=== PATIENT | male | born 1990 | race Hispanic/Latino ===

== ENCOUNTER 2017-09-14 23:01 | Emergency (ER) | payer OTHER ==
[2017-09-15] LABS: RAPID GROUP A STREP NEGATIVE (NEGATIVE)
== END 2017-09-15 00:20 | disposition home or self-care (01) ==
LOC: EDH 23:01
DX: J10.1 Influenza due to other identified influenza virus with other respiratory manifestations (principal); R50.81 Fever presenting with conditions classified elsewhere
CPT/HCPCS: 87804; 87880

== ENCOUNTER 2018-12-12 12:20 | Emergency (ER) | payer SELFPAY ==
[2018-12-12 12:42] LABS: APPEARANCE,URINE Clear (CLEAR); BILIRUBIN,URINE Negative (NEGATIVE); COLOR,URINE Yellow (YELLOW); GLUCOSE, URINE (UA) Negative (NEGATIVE); KETONES,URINE Negative (NEGATIVE); LEUKOCYTE ESTERASE ,URINE Trace (NEGATIVE); NITRATE,URINE Negative (NEGATIVE); OCCULT BLOOD,URINE Negative (NEGATIVE); PH,URINE 8.5 (5.0-8.0); PROTEIN,URINE Negative (NEGATIVE); UROBILINOGEN,URINE 0.2 mg/dL (0.2-1.0)
[2018-12-12 12:53] LABS: BACTERIA,URINE Rare /HPF (None Seen); RBC,URINE 0-1 /HPF (0-1); SQUAMOUS EPITHELIAL CELL,UR Few /HPF (0-2); WBC,URINE 0-1 /HPF (0-1)
[2018-12-12] MEDS ORDERED: IBUPROFEN 600 MG TABLET ONE (13:04)
== END 2018-12-12 13:57 | disposition home or self-care (01) ==
LOC: EDH 12:20
DX: N30.00 Acute cystitis without hematuria (principal); N50.82 Scrotal pain; F41.9 Anxiety disorder, unspecified
CPT/HCPCS: 76870; 81001; 87088; 87486; 87797

== ENCOUNTER 2018-12-29 22:00 | Emergency (ER) | payer SELFPAY ==
[2018-12-29] MEDS ORDERED: ONDANSETRON ODT 4 MG TAB ONE (22:33)
[2018-12-29] MEDS ORDERED: HYOSCYAMINE SULFATE 0.125 MG TAB.SUBL SL ONE (22:33)
[2018-12-29 22:45] LABS: APPEARANCE,URINE CLEAR (CLEAR); BASOPHILS % (AUTO) 0.7 % (0.0-5.0); BILIRUBIN,URINE NEGATIVE (NEGATIVE); COLOR,URINE YELLOW (YELLOW); EOSINOPHILS % (AUTO) 2.9 % (0.0-8.0); GLUCOSE, URINE (UA) NEGATIVE (NEGATIVE); HEMATOCRIT 38.7 % (42-54); KETONES,URINE NEGATIVE (NEGATIVE); LEUKOCYTE ESTERASE ,URINE NEGATIVE (NEGATIVE); MEAN CORPUSCULAR HEMOGLOBIN 31.2 pg (27.0-33.0); MEAN CORPUSCULAR HGB CONC 35.8 g/dL (32.0-36.0); MEAN CORPUSCULAR VOLUME 87.1 fL (79-99); MONOCYTES % (AUTO) 7.6 % (3.0-13.0); NEUTROPHILS % (AUTO) 57.8 % (40.0-77.0); NITRATE,URINE NEGATIVE (NEGATIVE); NUCLEATED RED BLOOD CELLS 0.1 % (0.0-0.19); OCCULT BLOOD,URINE NEGATIVE (NEGATIVE); PLATELET COUNT (AUTO) 213 K/uL (130-400); PROTEIN,URINE TRACE mg/dL (NEGATIVE); RED BLOOD CELL COUNT(AUTO) 4.44 MIL/uL (4.50-6.20); UROBILINOGEN,URINE 0.2 mg/dL (0.2-1.0); WHITE BLOOD COUNT (AUTO) 7.9 K/uL (4.8-10.8)
[2018-12-29 22:54] LABS: POTASSIUM 4.2 mmol/L (3.5-5.1)
[2018-12-29 22:58] LABS: ALBUMIN 3.3 g/dL (3.5-5.0); BILIRUBIN,DIRECT 0.2 mg/dL (0.0-0.3); BILIRUBIN,TOTAL 0.8 mg/dL (0.2-1.0); TOTAL PROTEIN, SERUM 6.8 g/dL (6.0-8.3)
== END 2018-12-29 23:35 | disposition home or self-care (01) ==
LOC: EDH 22:00
DX: K52.9 Noninfective gastroenteritis and colitis, unspecified (principal); F41.9 Anxiety disorder, unspecified
CPT/HCPCS: 36415; 80048; 80076; 81003; 85025

== ENCOUNTER 2019-02-10 02:50 | Emergency (ER) | payer SELFPAY ==
[2019-02-10] MEDS ORDERED: ONDANSETRON HCL 4 MG/2 ML VIAL ONE (03:10)
[2019-02-10] MEDS ORDERED: MORPHINE SULFATE 4 MG/1ML SYG ONE ×2 (03:10→05:02)
[2019-02-10] MEDS ORDERED: SODIUM CHLORIDE 0.9% 1000ML 1,000 ML IV ONE (03:10)
[2019-02-10] MEDS ORDERED: IOHEXOL 350 MG/ML 100ML INFUS..BTL IV ONE (03:12)
[2019-02-10 03:20] LABS: BASOPHILS % (AUTO) 0.5 % (0.0-5.0); EOSINOPHILS % (AUTO) 1.8 % (0.0-8.0); HEMATOCRIT 45.6 % (42-54); LYMPHOCYTES % (AUTO) 43.6 % (21.0-51.0); MEAN CORPUSCULAR HEMOGLOBIN 32.2 pg (27.0-33.0); MEAN CORPUSCULAR HGB CONC 35.7 g/dL (32.0-36.0); MEAN CORPUSCULAR VOLUME 90.2 fL (79-99); MONOCYTES % (AUTO) 5.8 % (3.0-13.0); NEUTROPHILS % (AUTO) 48.3 % (40.0-77.0); NUCLEATED RED BLOOD CELLS 0.4 % (0.0-0.19); PLATELET COUNT (AUTO) 205 K/uL (130-400); RED BLOOD CELL COUNT(AUTO) 5.06 MIL/uL (4.50-6.20); RED CELL DISTRIBUTION WIDTH 14.3 % (11.0-15.5); WHITE BLOOD COUNT (AUTO) 8.5 K/uL (4.8-10.8)
[2019-02-10 03:33] LABS: POTASSIUM 3.7 mmol/L (3.5-5.1)
[2019-02-10 03:36] LABS: ALBUMIN 3.7 g/dL (3.5-5.0); BILIRUBIN,TOTAL 0.7 mg/dL (0.2-1.0); INR 1.02 (0.85-1.15); PARTIAL THROMBOPLASTIN TIME 27.7 SEC (26.3-35.5); PROTHROMBIN TIME 10.7 SEC (9.6-11.6); TOTAL PROTEIN, SERUM 7.3 g/dL (6.0-8.3)
== END 2019-02-10 05:37 | disposition home or self-care (01) ==
LOC: EDH 02:50
DX: R10.84 Generalized abdominal pain (principal); F10.10 Alcohol abuse, uncomplicated; F41.9 Anxiety disorder, unspecified; F12.10 Cannabis abuse, uncomplicated
CPT/HCPCS: 36415; 70450; 71260; 72125; 74177; 80053; 82550; 84484; 85025; 85610; 85730; 93005; 96374; 96375; 96376; 99285; J2270 ×2; J2405; J7030; Q9967

== ENCOUNTER 2019-04-01 15:45 | Emergency (ER) | payer SELFPAY | END 2019-04-01 17:32 | disposition home or self-care (01) | LOC: EDH 15:45 | DX: F45.8 Other somatoform disorders (principal); F41.9 Anxiety disorder, unspecified; F14.10 Cocaine abuse, uncomplicated; Z72.0 Tobacco use | CPT/HCPCS: 99281 ==

== ENCOUNTER 2021-07-07 18:49 | Emergency (ER) | payer OTHER ==
[~2021-07-07] VITALS: Ht 175.3 cm; Wt 83.9 kg
[2021-07-07] MEDS ORDERED: IBUPROFEN 400 MG TABLET PO ONE (20:00)
[2021-07-07] MEDS ORDERED: IBUP-2070 PO (21:27)
[2021-07-07] MEDS ORDERED: BROM237S PO (21:27)
[2021-07-07] MEDS ORDERED: AZIT250T9 PO (21:27)
[2021-07-07] MEDS ORDERED: PSEU120T62 PO (21:27)
[2021-07-07] MEDS ORDERED: ALBU8.5H8 IH (21:27)
[2021-07-07 21:54] VITALS: BP 132/86
== END 2021-07-07 21:55 | disposition home or self-care (01) ==
LOC: EDH 18:49
DX: U07.1 COVID-19 (principal); E11.9 Type 2 diabetes mellitus without complications; J45.909 Unspecified asthma, uncomplicated; Z79.1 Long term (current) use of non-steroidal anti-inflammatories (NSAID); Z79.899 Other long term (current) drug therapy
CPT/HCPCS: 87635; 87804 ×2; 87880; 99283; C9803

== ENCOUNTER 2021-11-03 01:05 | Emergency (ER) | payer OTHER, SELFPAY ==
[~2021-11-03] VITALS: Ht 175.3 cm; Wt 86.2 kg
[~2021-11-03 01:05] MED LIST: ALBU8.5H8 IH; AZIT250T9 PO; BROM237S PO; IBUP-2070 PO; PSEU120T62 PO
[2021-11-03 01:55] LABS: BASOPHILS % (AUTO) 0.2 % (0.0-5.0); EOSINOPHILS % (AUTO) 0.9 % (0.0-8.0); HEMATOCRIT 46.8 % (42-54); LYMPHOCYTES % (AUTO) 9.2 % (21.0-51.0); MEAN CORPUSCULAR HGB CONC 36.1 g/dL (32.0-36.0); MEAN CORPUSCULAR VOLUME 91.4 fL (79-99); MONOCYTES % (AUTO) 6.8 % (3.0-13.0); NEUTROPHILS % (AUTO) 82.7 % (40.0-77.0); PLATELET COUNT (AUTO) 126 K/uL (130-400); RED BLOOD CELL COUNT(AUTO) 5.12 MIL/uL (4.50-6.20); RED CELL DISTRIBUTION WIDTH 12.6 % (11.0-15.5); WHITE BLOOD COUNT (AUTO) 8.7 K/uL (4.8-10.8)
[2021-11-03 02:02] LABS: APPEARANCE,URINE Clear (CLEAR); BILIRUBIN,URINE Small (NEGATIVE); COLOR,URINE Dark Yellow (YELLOW); GLUCOSE, URINE (UA) Negative (NEGATIVE); KETONES,URINE Negative (NEGATIVE); LEUKOCYTE ESTERASE ,URINE Moderate (NEGATIVE); NITRATE,URINE Negative (NEGATIVE); OCCULT BLOOD,URINE Negative (NEGATIVE); PROTEIN,URINE Negative (NEGATIVE)
[2021-11-03 02:03] LABS: CARBON DIOXIDE 26 mmol/L (21-32); CHLORIDE 102 mmol/L (101-111); GLOMERULAR FILTR. RATE CALC 91 mL/min (>60); GLUCOSE,RANDOM 136 mg/dL (70-105); POTASSIUM 3.8 mmol/L (3.5-5.1); SODIUM SERUM 140 mmol/L (136-145); UREA NITROGEN, BLOOD 1 mg/dL (7-18)
[2021-11-03 02:09] LABS: ALANINE AMINOTRANSFERASE 166 U/L (12-78); ALBUMIN 3.3 g/dL (3.5-5.0); ALCOHOL, BLOOD < 3 mg/dL (0-10); ASPARTATE AMINOTRANSFERASE 231 U/L (10-37); BILIRUBIN,TOTAL 3.4 mg/dL (0.2-1.0); LIPASE 52 U/L (114-286); TOTAL PROTEIN, SERUM 7.4 g/dL (6.0-8.3)
[2021-11-03 02:10] LABS: AMPHET/METH SCREEN,URINE NEGATIVE (NEGATIVE); BARBITURATE SCREEN, URINE NEGATIVE (NEGATIVE); BENZODIAZEPINES SCREEN,URINE NEGATIVE (NEGATIVE); CANNABINOID SCREEN,URINE NEGATIVE (NEGATIVE); COCAINE SCREEN,URINE NEGATIVE (NEGATIVE); OPIATE SCREEN,URINE NEGATIVE (NEGATIVE); PHENCYCLIDINE SCREEN,URINE NEGATIVE (NEGATIVE)
[2021-11-03 02:11] LABS: BACTERIA,URINE None Seen /HPF (None Seen); RBC,URINE None Seen /HPF (0-1); SQUAMOUS EPITHELIAL CELL,UR Few /HPF (0-2)
[2021-11-03] MEDS ORDERED: LORAZEPAM 2 MG/ML 1 ML VIAL IVP ONE (02:30)
[2021-11-03] MEDS ORDERED: MAG/ALUM/SIMETH 30 ML UDCUP PO ONE (02:30)
[2021-11-03] MEDS ORDERED: DICYCLOMINE HCL 10 MG/5 ML ML PO ONE (02:30)
[2021-11-03] MEDS ORDERED: PHARMACY COMMUNICATION MISC SCH (02:30)
[2021-11-03] MEDS ORDERED: LIDOCAINE HCL 2% VISCOUS 15 ML UDCUP PO ONE (02:30)
[2021-11-03] MEDS ORDERED: PANTOPRAZOLE 40 MG/VIAL IVP ONE (02:30)
[2021-11-03] MEDS ORDERED: M.V.I. IV [ADULT] 10 ML VIAL IV ONE (02:46)
[2021-11-03] MEDS ORDERED: THIAMINE HCL 100 MG/ML 2ML VIAL ONE (02:46)
[2021-11-03] MEDS ORDERED: M.V.I. IV [ADULT] 10 ML, FOLIC ACID 1 MG, THIAMINE HCL 100 MG in 0.9%NACL 1000ML 1,000 ML IV SCH (03:00)
[2021-11-03] MEDS ORDERED: LISI10TA24 PO (04:02)
[2021-11-03] MEDS ORDERED: LIB25 PO (04:02)
[2021-11-03 04:10] VITALS: BP 146/71
== END 2021-11-03 04:34 | disposition home or self-care (01) ==
LOC: EDH 01:05
DX: K70.10 Alcoholic hepatitis without ascites (principal); F10.239 Alcohol dependence with withdrawal, unspecified; I10 Essential (primary) hypertension; Z79.1 Long term (current) use of non-steroidal anti-inflammatories (NSAID); Z79.899 Other long term (current) drug therapy
CPT/HCPCS: 36415; 80053; 80305; 81001; 83690; 85025; 87088; 93005; 96365; 96375; 99284; C9113; J2060; J3411 ×2; J3490; J7030

== ENCOUNTER 2021-11-25 14:59 | Emergency (ER) | payer OTHER ==
[~2021-11-25] VITALS: Ht 175.3 cm; Wt 90.7 kg
[~2021-11-25 14:59] MED LIST changes: +LIB25 PO; +LISI10TA24 PO
[2021-11-25 15:28] LABS: BASOPHILS % (AUTO) 0.7 % (0.0-5.0); EOSINOPHILS % (AUTO) 1.9 % (0.0-8.0); HEMATOCRIT 45.4 % (42-54); MEAN CORPUSCULAR HEMOGLOBIN 33.3 pg (27.0-33.0); MEAN CORPUSCULAR HGB CONC 36.6 g/dL (32.0-36.0); MEAN CORPUSCULAR VOLUME 91.2 fL (79-99); MONOCYTES % (AUTO) 6.3 % (3.0-13.0); PLATELET COUNT (AUTO) 177 K/uL (130-400); RED BLOOD CELL COUNT(AUTO) 4.98 MIL/uL (4.50-6.20); RED CELL DISTRIBUTION WIDTH 11.9 % (11.0-15.5); WHITE BLOOD COUNT (AUTO) 7.3 K/uL (4.8-10.8)
[2021-11-25] MEDS ORDERED: HYDROXYZINE 50MG VIAL 50 MG/ML VIAL IM SCH (15:30)
[2021-11-25 15:40] LABS: CREATININE 0.8 mg/dL (0.5-1.5); POTASSIUM 3.6 mmol/L (3.5-5.1)
[2021-11-25 15:45] LABS: ALBUMIN 3.3 g/dL (3.5-5.0); TOTAL PROTEIN, SERUM 7.6 g/dL (6.0-8.3)
[2021-11-25 16:23] VITALS: BP 131/95
== END 2021-11-25 16:27 | disposition home or self-care (01) ==
LOC: EDH 14:59
DX: M79.661 Pain in right lower leg (principal); I10 Essential (primary) hypertension; F41.9 Anxiety disorder, unspecified; F32.A Depression, unspecified; I48.91 Unspecified atrial fibrillation; Z79.899 Other long term (current) drug therapy
CPT/HCPCS: 36415; 80053; 84484; 85025; 93005; 93971; 96372; 99285; J3410

== ENCOUNTER 2021-12-20 23:52 | Emergency (ER) | payer OTHER ==
[~2021-12-20] VITALS: Ht 175.3 cm; Wt 85.7 kg
[2021-12-20 23:58] VITALS: BP 152/92
[2021-12-21] MEDS ORDERED: KETOROLAC 30MG VIAL (30MG/ML) IM STA (01:38)
[2021-12-21] MEDS ORDERED: IBUP-2077 PO (02:50)
[2021-12-21] MEDS ORDERED: CYCL10TA16 PO (02:50)
== END 2021-12-21 03:00 | disposition home or self-care (01) ==
LOC: EDH 23:52
DX: S29.011A Strain of muscle and tendon of front wall of thorax, initial encounter (principal); I10 Essential (primary) hypertension; I48.91 Unspecified atrial fibrillation; Z79.1 Long term (current) use of non-steroidal anti-inflammatories (NSAID); Z79.899 Other long term (current) drug therapy; X58.XXXA Exposure to other specified factors, initial encounter; Y93.89 Activity, other specified; Y92.89 Other specified places as the place of occurrence of the external cause; Y99.8 Other external cause status
CPT/HCPCS: 96372; 99283; J1885

== ENCOUNTER 2022-01-30 11:11 | Emergency (ER) | payer OTHER ==
[~2022-01-30] VITALS: Ht 175.3 cm; Wt 86.2 kg
[~2022-01-30 11:11] MED LIST changes: +CYCL10TA16 PO; +IBUP-2077 PO
[2022-01-30 11:36] LABS: BASOPHILS % (AUTO) 0.4 % (0.0-5.0); EOSINOPHILS % (AUTO) 2.7 % (0.0-8.0); HEMATOCRIT 40.1 % (42-54); LYMPHOCYTES % (AUTO) 40.3 % (21.0-51.0); MEAN CORPUSCULAR HEMOGLOBIN 33.9 pg (27.0-33.0); MEAN CORPUSCULAR HGB CONC 36.2 g/dL (32.0-36.0); MEAN CORPUSCULAR VOLUME 93.7 fL (79-99); MONOCYTES % (AUTO) 10.3 % (3.0-13.0); NEUTROPHILS % (AUTO) 45.9 % (40.0-77.0); PLATELET COUNT (AUTO) 137 K/uL (130-400); RED BLOOD CELL COUNT(AUTO) 4.28 MIL/uL (4.50-6.20); RED CELL DISTRIBUTION WIDTH 12.2 % (11.0-15.5); WHITE BLOOD COUNT (AUTO) 4.8 K/uL (4.8-10.8)
[2022-01-30 11:49] LABS: CREATININE 0.9 mg/dL (0.5-1.5); POTASSIUM 4.2 mmol/L (3.5-5.1)
[2022-01-30 11:53] LABS: ALBUMIN 3.2 g/dL (3.5-5.0); TOTAL PROTEIN, SERUM 7.2 g/dL (6.0-8.3)
[2022-01-30] MEDS ORDERED: NIFEDIPINE 10 MG CAP PO ONE (12:30)
[2022-01-30] MEDS ORDERED: GUAIFENESIN-DM 200/20 MG 10 ML PO ONE (12:30)
[2022-01-30 12:51] VITALS: BP 141/92
[2022-01-30] MEDS ORDERED: DIPH1POW20 PO (13:09)
[2022-01-31 02:39] LABS: HEPATITIS B SURFACE ANTIGEN Non-Reactive (Nonreactive)
[2022-01-31 04:06] LABS: HEPATITIS A IGM ANTIBODY Non-Reactive (Nonreactive); HEPATITIS B CORE IGM ANTIBODY Non-Reactive (Negative); HEPATITIS C ANTIBODY Non-Reactive (Nonreactive)
== END 2022-01-30 13:33 | disposition home or self-care (01) ==
LOC: EDH 11:11
DX: U07.1 COVID-19 (principal); I10 Essential (primary) hypertension; R74.8 Abnormal levels of other serum enzymes; I48.91 Unspecified atrial fibrillation; Z79.1 Long term (current) use of non-steroidal anti-inflammatories (NSAID); Z79.899 Other long term (current) drug therapy
CPT/HCPCS: 99285; 71045; 87635; 84484; 80053; 85025; 87880; 87804 ×2; 80074; 36415; 93005; C9803

== ENCOUNTER 2022-02-23 06:53 | Emergency (ER) | payer OTHER ==
[~2022-02-23] VITALS: Ht 175.3 cm; Wt 81.6 kg
[~2022-02-23 06:53] MED LIST changes: +DIPH1POW20 PO
[2022-02-23 07:14] LABS: EOSINOPHILS % (AUTO) 2.7 % (0.0-8.0); HEMATOCRIT 40.7 % (42-54); LYMPHOCYTES % (AUTO) 25.4 % (21.0-51.0); MEAN CORPUSCULAR HEMOGLOBIN 34.9 pg (27.0-33.0); MEAN CORPUSCULAR HGB CONC 36.4 g/dL (32.0-36.0); MONOCYTES % (AUTO) 11.5 % (3.0-13.0); NEUTROPHILS % (AUTO) 59.2 % (40.0-77.0); PLATELET COUNT (AUTO) 169 K/uL (130-400); RED BLOOD CELL COUNT(AUTO) 4.24 MIL/uL (4.50-6.20); RED CELL DISTRIBUTION WIDTH 12.6 % (11.0-15.5); WHITE BLOOD COUNT (AUTO) 4.1 K/uL (4.8-10.8)
[2022-02-23 07:29] LABS: ALBUMIN 3.6 g/dL (3.5-5.0); CREATININE 0.9 mg/dL (0.5-1.5); POTASSIUM 3.9 mmol/L (3.5-5.1); TOTAL PROTEIN, SERUM 7.4 g/dL (6.0-8.3)
[2022-02-23] MEDS ORDERED: HYDROXYZINE 100MG/2ML VIAL IM SCH (08:00)
[2022-02-23 08:11] LABS: APPEARANCE,URINE CLEAR (CLEAR); BILIRUBIN,URINE NEGATIVE (NEGATIVE); COLOR,URINE YELLOW (YELLOW); GLUCOSE, URINE (UA) NEGATIVE (NEGATIVE); KETONES,URINE NEGATIVE (NEGATIVE); LEUKOCYTE ESTERASE ,URINE TRACE (NEGATIVE); OCCULT BLOOD,URINE TRACE-LYSED (NEGATIVE); PROTEIN,URINE TRACE mg/dL (NEGATIVE); UROBILINOGEN,URINE 0.2 mg/dL (0.2-1.0)
[2022-02-23 08:20] LABS: AMPHET/METH SCREEN,URINE NEGATIVE (NEGATIVE); BENZODIAZEPINES SCREEN,URINE NEGATIVE (NEGATIVE); CANNABINOID SCREEN,URINE NEGATIVE (NEGATIVE); COCAINE SCREEN,URINE NEGATIVE (NEGATIVE); PHENCYCLIDINE SCREEN,URINE NEGATIVE (NEGATIVE)
[2022-02-23 08:29] LABS: NITRATE,URINE NEGATIVE (NEGATIVE)
[2022-02-23] MEDS ORDERED: HYDROXYZINE 50MG VIAL 50 MG/ML VIAL IM SCH (08:30)
[2022-02-23] MEDS ORDERED: BUSP15 PO (08:58)
[2022-02-23 09:09] LABS: BACTERIA,URINE Few /HPF (None Seen); RBC,URINE 0-1 /HPF (0-1)
[2022-02-23 09:10] LABS: SQUAMOUS EPITHELIAL CELL,UR 0-2 /HPF (0-2)
[2022-02-23 09:21] VITALS: BP 148/85
[2022-02-25 15:14] LABS: OPIATES SCREEN URINE Negative ng/mL (Cutoff=300)
== END 2022-02-23 09:22 | disposition home or self-care (01) ==
LOC: EDH 06:53
DX: F41.9 Anxiety disorder, unspecified (principal); K70.10 Alcoholic hepatitis without ascites; Z20.822 Contact with and (suspected) exposure to COVID-19; R74.8 Abnormal levels of other serum enzymes; I10 Essential (primary) hypertension; I48.91 Unspecified atrial fibrillation; Z79.1 Long term (current) use of non-steroidal anti-inflammatories (NSAID); Z79.899 Other long term (current) drug therapy
CPT/HCPCS: 99285; 76705; 71045; 87635; 80053; 80305; 83690; 85025; 87088; 36415; 96372; 93005; 81001; C9803; J3410

== ENCOUNTER 2022-07-30 08:06 | Emergency (ER) | payer OTHER ==
[~2022-07-30] VITALS: Ht 175.3 cm; Wt 81.6 kg
[~2022-07-30 08:06] MED LIST changes: +BUSP15 PO
[2022-07-30] MEDS ORDERED: ACETAMINOPHEN 500 MG TABLET PO ONE (09:00)
[2022-07-30] MEDS ORDERED: IBUP-2071 PO (10:58)
[2022-07-30] MEDS ORDERED: BENZ-39 PO (10:58)
[2022-07-30 11:08] VITALS: BP 137/98
== END 2022-07-30 11:08 | disposition home or self-care (01) ==
LOC: EDH 08:06
DX: B34.9 Viral infection, unspecified (principal); I10 Essential (primary) hypertension; I48.91 Unspecified atrial fibrillation; Z79.1 Long term (current) use of non-steroidal anti-inflammatories (NSAID); Z79.899 Other long term (current) drug therapy; Z20.822 Contact with and (suspected) exposure to COVID-19
CPT/HCPCS: 99284; 71045; 87635; 87880; C9803

== ENCOUNTER 2022-08-19 12:52 | Emergency (ER) | payer OTHER ==
[~2022-08-19] VITALS: Ht 175.3 cm; Wt 85.7 kg
[~2022-08-19 12:52] MED LIST changes: +BENZ-39 PO; +IBUP-2071 PO
[2022-08-19 16:19] VITALS: BP 128/68
== END 2022-08-19 16:23 | disposition home or self-care (01) ==
LOC: EDH 12:52
DX: R06.02 Shortness of breath (principal); I10 Essential (primary) hypertension; I48.91 Unspecified atrial fibrillation; Z79.1 Long term (current) use of non-steroidal anti-inflammatories (NSAID); Z79.2 Long term (current) use of antibiotics; Z79.899 Other long term (current) drug therapy; Z20.822 Contact with and (suspected) exposure to COVID-19
CPT/HCPCS: 99283; 87635; 87804 ×2; C9803

== ENCOUNTER 2022-09-15 12:07 | Emergency (ER) | payer OTHER ==
[~2022-09-15] VITALS: Ht 175.3 cm; Wt 81.6 kg
[2022-09-15 12:19] VITALS: BP 156/94
[2022-09-15 13:07] LABS: AMPHET/METH SCREEN,URINE NEGATIVE (NEGATIVE); BARBITURATE SCREEN, URINE NEGATIVE (NEGATIVE); BENZODIAZEPINES SCREEN,URINE NEGATIVE (NEGATIVE); CANNABINOID SCREEN,URINE NEGATIVE (NEGATIVE); COCAINE SCREEN,URINE NEGATIVE (NEGATIVE); OPIATE SCREEN,URINE NEGATIVE (NEGATIVE); PHENCYCLIDINE SCREEN,URINE NEGATIVE (NEGATIVE)
[2022-09-15 13:09] LABS: BASOPHILS % (AUTO) 0.8 % (0.0-5.0); EOSINOPHILS % (AUTO) 1.2 % (0.0-8.0); HEMATOCRIT 44.8 % (42-54); LYMPHOCYTES % (AUTO) 17.8 % (21.0-51.0); MEAN CORPUSCULAR HEMOGLOBIN 34.4 pg (27.0-33.0); MEAN CORPUSCULAR HGB CONC 36.8 g/dL (32.0-36.0); MEAN CORPUSCULAR VOLUME 93.5 fL (79-99); NEUTROPHILS % (AUTO) 72.9 % (40.0-77.0); PLATELET COUNT (AUTO) 92 K/uL (130-400); RED BLOOD CELL COUNT(AUTO) 4.79 MIL/uL (4.50-6.20)
[2022-09-15 13:17] LABS: CREATININE 0.9 mg/dL (0.5-1.5); POTASSIUM 3.6 mmol/L (3.5-5.1)
[2022-09-15 13:22] LABS: ALBUMIN 3.9 g/dL (3.5-5.0); TOTAL PROTEIN, SERUM 8.2 g/dL (6.0-8.3)
[2022-09-15] MEDS ORDERED: MAG/ALUM/SIMETH 30 ML UDCUP PO ONE (14:30)
== END 2022-09-15 14:10 | disposition home or self-care (01) ==
LOC: EDH 12:07
DX: F41.9 Anxiety disorder, unspecified (principal); I10 Essential (primary) hypertension; E78.00 Pure hypercholesterolemia, unspecified; I48.91 Unspecified atrial fibrillation; Z79.899 Other long term (current) drug therapy
CPT/HCPCS: 36415; 71045; 80053; 80305; 84484; 85025; 93005

== ENCOUNTER 2024-06-14 11:13 | Inpatient (IN) | payer SELFPAY ==
[~2024-06-14] VITALS: Ht 175.3 cm; Wt 87.1 kg
[~2024-06-14 11:13] MED LIST changes: +CHLO25CA6 PO; -LIB25 PO
--- NOTE | 2024-06-14 11:32 | ERN ---
ED Note History of Present Illness Stated Complaint: PALPITATIONS, RAPID HEART, VOMITING Chief Complaint: Nausea,Vomiting,Diarrhea Time Seen by MD: 11:25 Dictation: PATIENT IS A 34-YEAR-OLD MALE COMING IN TODAY WITH NAUSEA VOMITING PALPITATIONS AND FEELING VERY ANXIOUS. STATES HE JUST GOT OUT OF [facility] AND WAS IN [facility] FOR FOUR MONTHS AND WAS DRINKING HOMEMADE ALCOHOL IN [place] FOR FOUR MON[address] [facility]. DAILY HE SAID NOW HE IS DRINKING BEERS HAD A 1-1/2 BEERS THIS MORNING. STATES WHEN HE STOPS DRINKING HE FEELS VERY SHAKY AND ANXIOUS, HEART RACES. STATES HE HAS AN APPOINTMENT WITH HIS PRIMARY CARE DOCTOR July HOWEVER HAS BEEN UNABLE TO SEE HIM. HE DENIES DRUGS HOWEVER STATES I DID A LINE OF COCAINE THREE WEEKS AGO. Allergies: Coded Allergies: No Known Allergies (Unverified Allergy, Unknown, 12/12/18) Home Meds Active Scripts Ibuprofen (Ibuprofen) 800 Mg Tablet, 800 MG PO Q8H for pain or fever, #30 TAB 0 Refills Prov:BRAYAN GILMAN MD 07/30/22 Benzonatate (Tessalon Perles) 100 Mg Cap, 100 MG PO TID for cough, #30 CAP 0 Refills Prov:BRAYAN GILMAN MD 07/30/22 Buspirone HCl (Buspar) 15 Mg Tab, 5 MG PO BID for 10 Days, #20 TAB Prov:ELVA FELIX MD 02/23/22 Diphenhydra/Phenyleph/Acetamin (Theraflu Severe Cold & Cough) 1 Each Powd.pack, 1 EACH PO QIDP, #20 PACK Prov:MICHELLE SONG 01/30/22 Cyclobenzaprine HCl (Flexeril) 10 Mg Tab, 10 MG PO TID for 10 Days, #30 TAB Prov:EMMIE CEDENO MD 12/21/21 Ibuprofen (Ibuprofen 800 mg Tab) 800 Mg Tab, 800 MG PO Q8H PRN for PAIN for 10 Days, #30 TAB Prov:EMMIE CEDENO MD 12/21/21 Lisinopril (Lisinopril) 10 Mg Tablet, 1 TAB PO DAILY for 90 Days, #90 TAB 0 Refills Prov:SISSY LU MD 11/03/21 Chlordiazepoxide HCl (Librium 25 mg Cap) 25 Mg Cap, 25 MG PO AD, #20 CAP Day 1: 50mg every 6 hours Day 2: 25mg every 6 hours Day 3: 25mg every 12 hours Day 4: 25mg at night Prov:SISSY LU MD 11/03/21 Brompheniram/Phenylephrine/Dm (Dimetapp Cold & Cough Liquid) 237 Ml Solution, 237 ML PO TID for 5 Days, #150 ML Prov:MIRANDA FARRAR 07/07/21 Pseudoephedrine HCl (Sudafed 12 Hour) 120 Mg Tablet.er, 120 MG PO BID for 5 Days, #10 TAB Prov:MIRANDA FARRAR 07/07/21 Albuterol Sulfate (Proair Hfa) 8.5 Gm Hfa.aer.ad, 8.5 GM IH Q4H for 5 Days, #1 INHALER Prov:MIRANDA FARRAR 07/07/21 Ibuprofen (Ibuprofen) 600 Mg Tablet, 600 MG PO Q6H PRN for PAIN, #15 TAB Prov:MIRANDA FARRAR 07/07/21 Azithromycin (Azithromycin) 250 Mg Tablet, 250 MG PO DAILY for 5 Days, #6 TAB Prov:MIRANDA FARRAR 07/07/21 Past Medical History Past Medical History: A-Fib, Anxiety, High Cholesterol, Hypertension Additional Past Medical Hx: Atrial fibrillation, GALLBLADDER ISSUES Surgical History: None Family History: Negative Social History: Drugs, ETOH, Lives with family RN Note Reviewed/Agreed w/PFSH: Yes Review of System Dictation CONSTITUTIONAL: NEGATIVE EXCEPT FOR HPI ANXIOUS HEAD/FACE: NEGATIVE EXCEPT FOR HPI EENT: NEGATIVE EXCEPT FOR HPI RESPIRATORY: NEGATIVE EXCEPT FOR HPI PALPITATIONS GASTROINTESTINAL/ABDOMINAL: NEGATIVE EXCEPT FOR HPI NAUSEA VOMITING GENITOURINARY: NEGATIVE EXCEPT FOR HPI MUSCULOSKELETAL: NEGATIVE EXCEPT FOR HPI INTEGUMENTARY: NEGATIVE EXCEPT FOR HPI NEUROLOGICAL/PSYCH: NEGATIVE EXCEPT FOR HPI HEMATOLOGIC/LYMPHATIC: NEGATIVE EXCEPT FOR HPI ALL SYSTEMS NEGATIVE, EXCEPT NOTED ABOVE. 13 POINT REVIEW OF SYSTEMS ASSESSED AND ALL NEGATIVE EXCEPT FOR ABOVE. Initial Vital Sign VS Vital Signs Date Time Temp Pulse Resp B/P (MAP) Pulse Ox O2 Delivery O2 Flow Rate FiO2 06/14/24 11:18 98.1 82 16 169/129 98 Room Air 0 06/14/24 11:18 21 Physical Exam Dictation VITAL SIGNS REVIEWED GENERAL APPEARANCE: ALERT, ORIENTED X 3, N ANXIOUS ACUTE DISTRESS, WELL DEVELOPED, NOURISHED. HEAD AND FACE: NON-TRAUMATIC. EYES: PERRL, PINK CONJUNCTIVAS, EYELID NO TRAUMA, ANTERIOR CHAMBER WITH ARCUS SENILIS. EARS: PINNAS INTACT AND NO SIGNS OF TRAUMA OR ERYTHEMA EAR CANALS CLEAR AND NO DISCHARGE TM NO ERYTHEMA NOSE: NO DISCHARGE, NO BLEEDING. OROPHARYNX: MOUTH NORMAL, TONGUE PINK, PHARYNX CLEAR,NO ERYTHEMA, TONSILS NO EXUDATES, NO ABSCESSES NOTED, MUCOUS MEMBRANE MOIST NECK: SUPPLE, NON-TENDER, NO THYROMEGALY, NO MASSES, NO JVD, NO BRUITS BREAST:DEFERRED CHEST:NO TENDERNESS, NO CREPITUS, NO PARADOXICAL MOVEMENT, NO RETRACTIONS LUNGS:CLEAR, WELL-VENTILATED, SYMMETRIC, NO RALES, NO WHEEZING, NO RHONCHI, NO STRIDOR, GOOD BREATH SOUNDS BILATERALLY HEART: REGULAR RATE, REGULAR RHYTHM, NO MURMUR, NO GALLOPS VASCULAR: NO PERIPHERAL EDEMA, ABDOMEN: SOFT, POSITIVE BOWEL SOUNDS, NONDISTENDED, NO GUARDING, NONTENDER, NO REBOUND, NO MASSES NO HEPATOMEGALY, NO SPLENOMEGALY, NO SANTIZO'S SIGN, NO HERNIAS. RECTAL: DEFERRED GENITAL: DEFERRED NEUROLOGICAL: NORMAL SPEECH, MOTOR FUNCTION INTACT, SENSORY FUNCTION INTACT MUSCULOSKELETAL: NECK NONTENDER, FULL RANGE OF MOTION, BACK NONTENDER, FULL RANGE OF MOTION, TREMOR NOTED EXTREMITIES: NONTENDER, FULL RANGE OF MOTION SKIN: COLOR PINK, DRY, NO TURGOR, NO RASH, NO LACERATIONS, NO ABRASIONS, NO CONTUSIONS. LYMPHATIC: DEFERRED Results (Laboratory/Radiology) Laboratory/Radiology Laboratory Tests Test 06/14/24 11:14 White Blood Count 11.1 K/uL (4.8-10.8) H Red Blood Count 5.54 MIL/uL (4.50-6.20) Hemoglobin 18.9 g/dL (14.0-18.0) H Hematocrit 51.1 % (42-54) Mean Corpuscular Volume 92.2 fL (79-99) Mean Corpuscular Hemoglobin 34.1 pg (27.0-33.0) H Mean Corpuscular Hemoglobin Concent 37.0 g/dL (32.0-36.0) H Red Cell Distribution Width 12.1 % (11.0-15.5) Platelet Count 130 K/uL (130-400) Mean Platelet Volume 9.8 fL (7.5-10.5) Immature Granulocyte % (Auto) 0.2 % (0-1) Neutrophils (%) (Auto) 83.1 % (40.0-77.0) H Lymphocytes (%) (Auto) 9.7 % (21.0-51.0) L Monocytes (%) (Auto) 6.0 % (3.0-13.0) Eosinophils (%) (Auto) 0.4 % (0.0-8.0) Basophils (%) (Auto) 0.6 % (0.0-5.0) Neutrophils # (Auto) 9.2 K/uL (1.8-7.7) H Lymphocytes # (Auto) 1.1 K/uL (1.0-4.8) Monocytes # (Auto) 0.7 K/uL (0.1-1.0) Eosinophils # (Auto) 0.04 K/uL (0.00-0.70) Basophils # (Auto) 0.07 K/uL (0.00-0.20) Absolute Immature Granulocyte (auto 0.02 K/uL (0-1) Nucleated Red Blood Cells 0.0 % (0.0-0.19) White Cell Morphology Comment See comments Red Blood Cell Morphology ANISO 1+ Sodium Level 136 mmol/L (136-145) Potassium Level 4.4 mmol/L (3.5-5.1) Chloride Level 100 mmol/L (101-111) L Carbon Dioxide Level 24 mmol/L (21-32) Blood Urea Nitrogen 3 mg/dL (7-18) L Creatinine 0.8 mg/dL (0.5-1.3) Glomerular Filtration Rate Calc 118 mL/min (>90) Random Glucose 135 mg/dL (70-105) H Total Calcium 9.0 mg/dL (8.5-10.1) Magnesium Level 1.40 mg/dL (1.80-2.40) L Troponin I High Sensitivity 7 ng/L (4-75) B-Type Natriuretic Peptide 21 pg/mL (0-100) Serum Alcohol 6 mg/dL (0-10) Labs Reviewed?: Yes EKG Comment: EKG ATRIAL FIBRILLATION WITH RVR/VENTRICULAR RATE 1/NONSPECIFIC CHANGES IN THE ANTEROSEPTAL LEADS 7 ED Course ED Course Orders Procedure Category Date Status Time Drug Screen Urine LAB 06/14/24 Logged 11:29 Alcohol, Blood LAB 06/14/24 Complete 11:29 Cbc With Differential LAB 06/14/24 Complete 11:29 Urinalysis Profile LAB 06/14/24 Logged 11:29 12 Lead Ekg Tracing- EKG 06/14/24 Complete Technical 11:29 0.9%Nacl 1000ml (Ns PHA 06/14/24 Complete 1000ml) 11:30 Basic Metabolic Panel LAB 06/14/24 Complete 11:29 Magnesium LAB 06/14/24 Complete 11:29 Lorazepam 2 Mg PHA 06/14/24 Complete (Ativan) 11:30 Troponin I High LAB 06/14/24 Complete Sensitivity 11:39 B-Type Natriuretic LAB 06/14/24 Complete Peptide 11:39 Metoprolol Tartrate PHA 06/14/24 Complete (Lopressor) 12:00 Etoh Alcohol PARKER 06/14/24 In Process Withdrawal Ords 11:49 Lorazepam 2 Mg PHA 06/14/24 In Process (Ativan) 12:00 Thiamine Hcl (Vitamin PHA 06/14/24 In Process B-1)... 12:00 Pharmacy PHA 06/14/24 In Process Communication 11:49 Use [facility] CPOE 06/14/24 Transmitted Assmt. Tool 11:49 Assess The Need For CPOE 06/14/24 Transmitted Seizure & 11:49 Vs Per Unit Routine & CPOE 06/14/24 Transmitted With 11:49 Document Etoh CPOE 06/14/24 Transmitted Withdrawal Score 11:49 Metoprolol Tartrate PHA 06/14/24 Complete (Lopressor) 12:30 Magnesium 2gm Premix PHA 06/14/24 In Process 50ml (Magnesium 2gm 12:52 Lorazepam 2 Mg PHA 06/14/24 Complete (Ativan) 13:00 Current Medications Medications (Trade) Dose Ordered Sig/Dolores Route PRN Reason Start Time Stop Time Status Last Admin Dose Admin Lorazepam (AtiVAN) 1 mg ONCE ONCE IVP 06/14/24 11:30 06/14/24 11:31 DC 06/14/24 11:45 Lorazepam (AtiVAN) 1 mg ONCE ONCE IVP 06/14/24 13:00 06/14/24 13:01 DC Lorazepam (AtiVAN) 2 mg Q4H PRN IVP ALCOHOL WITHDRAWAL PROTOCOL 06/14/24 12:00 06/21/24 11:59 Magnesium Sulfate 50 ml @ 0 mls/hr PROTOCOL IV 06/14/24 12:52 07/14/24 12:51 Metoprolol Tartrate (loprESSOR) 5 mg ONCE ONCE IV 06/14/24 12:00 06/14/24 12:01 DC 06/14/24 11:51 Metoprolol Tartrate (loprESSOR) 5 mg ONCE ONCE IV 06/14/24 12:30 06/14/24 12:31 DC 06/14/24 12:50 Pharmacy Profile Note (Pharmacy Communication) 1 each PROTOCOL MISC 06/14/24 11:49 06/21/24 11:48 Sodium Chloride 1,000 ml @ 0 mls/hr ONCE ONCE IV 06/14/24 11:30 06/14/24 11:31 DC 06/14/24 11:45 Thiamine HCl 100 mg/Folic Acid 1 mg/Multivitamins/ Minerals 10 ml/ Sodium Chloride 1,011.2 ml @ 100 mls/ hr Q24H IV 06/14/24 12:00 06/16/24 22:07 06/14/24 12:47 Vital Signs Date Time Temp Pulse Resp B/P (MAP) Pulse Ox O2 Delivery O2 Flow Rate FiO2 06/14/24 12:54 98.1 133 16 156/108 98 Room Air* 0 21 06/14/24 12:50 156 156/66 06/14/24 11:51 160 151/124 06/14/24 11:18 98.2 75 16 170/122 98 Room Air* 0 21 06/14/24 11:18 98.1 82 16 169/129 98 Room Air 0 ELEVEN 50, SPOKE WITH ER , STATES PATIENT WENT INTO AFIB WITH RVR HEART RATE 170S 180S HE ORDERED LOPRESSOR5 MG. HE IS AWARE THAT I HAVE INITIATED CIWA PROTOCOL AND PATIENT WILL BE ADMITTED TO THE HOSPITAL FOR ACUTE ALCOHOL WITHDRAWAL SYMPTOMS 1215/PATIENT CONTINUOUS A VENTRICULAR RATE 135-155, WE WILL REPEAT LOPRESSOR5 MG IV PUSH. PATIENT IS AWARE THAT HE WILL BE ADMITTED TO THE HOSPITAL FOR ACUTE ALCOHOL WITHDRAWAL AND AFIB RVR THIRTEEN 20, PATIENT REMAINS TACHYCARDIC HEART RATE 120S 130S. HE HAS RECEIVED LOPRESSOR 10 MG, ATIVAN TWO AND IV FLUIDS. SPOKE WITH , REVIEWED EKG LABS AND TREATMENT FOR ACUTE ALCOHOL WITHDRAWAL. HE AGREED TO ADMIT Medical Decision Making MDM MDM: DIFFERENTIAL DIAGNOSIS: ACUTE ALCOHOL WITHDRAWAL SYMPTOMS, ACS/AMI/AFIB WITH A RVR/ELECTROLYTE IMBALANCE/DEHYDRATION/COCAINE SIDE EFFECT RATIONALE: TESTS CONSIDERED AND ORDERED SECONDARY TO SHARED DECISION MAKING INCLUDE: LABS, ECG AND RADIOLOGY PREVIOUS OUTSIDE RECORDS REVIEWED: OLD ER VISITS. RISK OF COMPLICATION AND/OR MORBIDITY OR MORTALITY OF PATIENT MANAGEMENT: [id number] MEDICATIONS-PER MEDICATION RECONCILIATION NEED FOR HOSPITALIZATION: PATIENT DOES MEET CRITERIA FOR HOSPITALIZATION. YES WE WILL NEED TREATMENT FOR ACUTE ALCOHOL WITHDRAWAL AND MANAGEMENT OF AFIB WITH A RVR CARDIAC CONSULTATION NEED FOR EMERGENCY MAJOR/MINOR SURGERY: NO THERE ARE NO SOCIAL CONCERNS WITH THIS PATIENT. DAILY DRINKER PRESCRIPTION DRUG MANAGEMENT PRESCRIPTIONS WILL INCLUDE SYMPTOMATIC CARE PATIENT'S PRIOR EXTERNAL MEDICAL RECORDS FROM OTHER ER VISITS WERE REVIEWED BY ME INDICATED. PRIOR TESTING AND RESULTS FROM PREVIOUS VISITS WERE REVIEWED. PRIOR TESTS WERE TAKEN INTO ACCOUNT WITH MEDICAL DECISION MAKING AND RESOURCE UTILIZATION, INDEPENDENT HISTORIAN/HISTORIANS WERE USED TO OBTAIN COMPLETE MEDICAL HISTORY. I INDEPENDENTLY INTERPRETED THE TEST THAT WERE PERFORMED, RESULTS WERE REVIEWED BY ME AND CONSIDERED FINDINGS ON RADIOLOGY IF ORDERED. MEDICAL MANAGEMENT AND EXAMINATION INTERPRETATION DISCUSSIONS WERE HAD BY ME WITH OTHER QUALIFIED HEALTHCARE PROFESSIONALS INDICATED FOR THE PATIENT'S CARE. DX & DISP Disposition: Inpatient Decision to Admit Time: 13:29 Departure Impression: Primary Impression: Alcohol withdrawal Additional Impressions: Atrial fibrillation with RVR, Hypomagnesemia, Dehydration, History of cocaine use Condition: Stable Referrals: SELF,REFERRAL (PCP) Time of Disposition: 13:30 I have reviewed the case, and I agree with, Diagnosis and Plan ALFONSO ALVAREZ NP Jun 14, 2024 11:32
[2024-06-14] MEDS: 0.9%NACL 1000ML 1,000 ML IV ONE (11:45)
[2024-06-14] MEDS: LORazepam 2 MG/ML 1 ML VIAL IVP ONE ×2 (11:45→13:26)
[2024-06-14] MEDS ORDERED: PHARMACY COMMUNICATION MISC SCH (11:49)
[2024-06-14] MEDS: metoPROLOL tartRATE 1 MG/ML 5ML VIAL IV ONE ×2 (11:51→12:50)
[2024-06-14 11:53] LABS: BASOPHILS # (AUTO) 0.07 K/uL (0.00-0.20); BASOPHILS % (AUTO) 0.6 % (0.0-5.0); EOSINOPHILS # (AUTO) 0.04 K/uL (0.00-0.70); EOSINOPHILS % (AUTO) 0.4 % (0.0-8.0); HEMATOCRIT 51.1 % (42-54); IMMATURE GRANULOCYTE ABSOLUTE 0.02 K/uL (0-1); LYMPHOCYTES # (AUTO) 1.1 K/uL (1.0-4.8); LYMPHOCYTES % (AUTO) 9.7 % (21.0-51.0); MEAN CORPUSCULAR HEMOGLOBIN 34.1 pg (27.0-33.0); MEAN CORPUSCULAR VOLUME 92.2 fL (79-99); MONOCYTES # (AUTO) 0.7 K/uL (0.1-1.0); NEUTROPHILS # (AUTO) 9.2 K/uL (1.8-7.7); NEUTROPHILS % (AUTO) 83.1 % (40.0-77.0); PLATELET COUNT (AUTO) 130 K/uL (130-400); RED BLOOD CELL COUNT(AUTO) 5.54 MIL/uL (4.50-6.20); RED CELL DISTRIBUTION WIDTH 12.1 % (11.0-15.5); WHITE BLOOD COUNT (AUTO) 11.1 K/uL (4.8-10.8)
[2024-06-14] MEDS ORDERED: LORazepam 2 MG/ML 1 ML VIAL IVP PRN (12:00)
--- NOTE | 2024-06-14 12:00 | NUR ---
NO MEDICATIONS TO RECONCILE HASNT BEEN TAKING HIS MEDICATIONS
[2024-06-14 12:02] LABS: CREATININE 0.8 mg/dL (0.5-1.3); POTASSIUM 4.4 mmol/L (3.5-5.1)
[2024-06-14 12:03] LABS: MAGNESIUM 1.4 mg/dL (1.80-2.40)
[2024-06-14] MEDS: THIAMINE HCL 100 MG, FOLic ACID 5 MG/ML VIAL 1 MG, M.V.I. IV [ADULT] 10 ML in 0.9%NACL ... IV SCH (12:47)
--- NOTE | 2024-06-14 13:02 | EKG ---
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1990 Requested By: ALFONSO ALVAREZ Order Number: [id number] Reading MD: Giovanni Torres Measurements Intervals [place] Rate: 171 P: 0 AR: 0 QRS: 63 QRSD: 81 T: 18 QT: 256 QTc: 433 Interpretive Statements Atrial fibrillation Ventricular premature complex Low voltage, extremity leads Probable anteroseptal infarct, old Compared to ECG 09/15/2022 14:46:33 Ventricular premature complex(es) now present Myocardial infarct finding now present Sinus rhythm no longer present Electronically Signed On 06-17-2024 17:25:24 OUTCOMES MANAGER by Giovanni Torres Please click the below link to view image of tracing.
[2024-06-14] MEDS: MAGNESIUM 2GM PREMIX 50ML 50 ML IV SCH (13:25)
[2024-06-14] MEDS: dilTIAZem 125 MG/25 ML INJ 125 MG in 0.9%NACL 100ML 100 ML IV SCH (13:51)
[2024-06-14] MEDS: dilTIAZem 125MG+100 ML NS 125 ML IV ONE (13:52)
--- NOTE | 2024-06-14 14:05 | EKG ---
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
--- NOTE | 2024-06-14 14:15 | HP ---
[facility] HISTORY AND PHYSICAL Date of Service: Jun 14, 2024 Time of Service: 14:15 HISTORY OF PRESENT ILLNESS: Date of service: 06/14/2024, patient was seen in ER room 19 34-year-old male with history of paroxysmal atrial fibrillation, chronic alcoholism, underlying history of suspected liver cirrhosis who presented to the ER with chief complaint of significant palpitations. Patient has a history of heavy alcohol use in states that he has been trying to cut down on alcohol. He previously used to drink about 12-18 cans of 24 oz beers daily and recently over the last several days, he has been trying to cut down to three cans of beers of 24 oz. Last alcoholic drink was earlier this morning. He has been having significant shakes and anxiety since cutting down on alcohol. Denies previous history of seizures. Patient also reports history of cocaine use with last use of cocaine about three weeks ago. He uses marijuana intermittently. Patient reports previously having history of atrial fibrillation and was hospitalized in [facility] in 2021. He was prescribed metoprolol and Eliquis which patient states he has stopped taking. With Eliqui s, patient noticed that he was having hematuria and also vomited blood so he stopped taking the medication after four months. He also felt short of breath when taking Eliquis. He was incarcerated recently and was released from care home in January,. He has not been able to keep follow up with outpatient family doctor or specialist. Denies previous history of stroke. Reports that around the time of gi, he has been having black tarry stool and also noticed blood in his stool which continued for about a week. He has also noticed streaks of blood when vomiting last week. Currently denies black stool over the last several days. Previously, it was suggested to the patient to undergo endoscopy which patient declined as he did not want to undergo sedation. On presentation to the hospital, patient was noted to be afebrile with blood pressure of 170/122 and was noted to have atrial fibrillation with RVR with heart rate between 160s-170s. [place] [address], hemoglobin of 18.9, platelet count of 350531. BMP remarkable for sodium 1364 mL potassium 4.4, chloride of 100, creatinine of 0.8, magnesium of 1.4, troponin of seven, BNP of 21. Patient received two doses of IV metoprolol push 5 mg which reduce the heart rate into the 120s-130s. He received three doses of IV lorazepam 1 mg to assist with management of alcohol withdrawals. Patient will be admitted to cardiac telemetry floor for further management of moderate to severe alcohol withdrawals, atrial fibrillation with RVR and we will also undergo further workup to rule out GI bleed. Consultation will be requested with Cardiology and Gastroenterology this admission. We will see how patient progresses in the next 48-72 hours. REVIEW OF SYSTEMS CONSTITUTIONAL: Generalized fatigue, malaise NEUROLOGICAL: Denies headache, amaurosis fugax, motor weakness, sensory deficit, vertigo/spinning sensation, gait abnormalities, or tremors. ENT: No hearing loss, otalgia, otorrhea, rhinitis, rhinorrhea, hoarseness, or sore throat. CARDIOVASCULAR: Significant chest pressure/palpitations this morning PULMONARY: Denies any shortness of breath, cough, phlegm/sputum, hemoptysis, pleuritic chest pain. SLEEP: Denies morning headaches, daytime somnolence or napping. Denies difficulty falling asleep, staying asleep, waking from sleep. Denies knowledge of snoring. GASTROINTESTINAL: Noticed recently that his stool was dark and tarry with episodes of hematochezia, patient also reports having episodes of hematemesis with vomiting GENITOURINARY: Denies frequency, urgency, nocturia, hematuria or incontinence (Storage/Irritative symptoms.) Low urinary stream, straining to void, urinary intermittency or hesitancy, splitting of the voiding stream, terminal dribbling. ENDOCRINOLOGIC: Denies polyuria, polydipsia, polyphagia or heat/cold intolerances. HEMATOLOGIC: Denies thrombophilia/previous clots, or coagulopathy/bleeding disorders. ONCOLOGIC: Denies personal history of malignancy. DERMATOLOGIC: Denies rashes or pruritus. PSYCHIATRIC: Denies any suicidal or homicidal ideation. Denies hallucinations. PAST MEDICAL HISTORY: Hypertension, hyperlipidemia, alcoholic liver cirrhosis, alcohol use disorder, history of cocaine use disorder, prior history of paroxysmal atrial fibrillation currently not on anticoagulation, history of incarceration in medical noncompliance, reports a history of schizophrenia, bipolar disorder and PTSD PAST SURGICAL HISTORY: Denies history of significant surgeries PAST SOCIAL HISTORY: Patient was previously incarcerated and released in January,, long-time history of alcohol use since the age of 9 and used to drink about 12-18 cans of 24 oz beers daily, recently has been trying to cut down on alcohol use and has been drinking three cans of 24 oz beers, history of cocaine use with last use of cocaine about three weeks ago, history of marijuana use as well FAMILY HISTORY: Mother has a history of hypertension, diabetes and heart disease Allergies: Patient denies any known drug allergies Medications: Patient denies being on maintenance outpatient home medications Coded Allergies: No Known Allergies (Unverified Allergy, Unknown, 12/12/18) PHYSICAL EXAM GENERAL APPEARANCE: The patient is awake, alert, appears anxious and tremulous NEUROLOGICAL: Cranial nerves II-XII grossly intact. Motor is 5/5 in bilateral upper and lower extremities proximal to distal. No sensory deficits. HEENT: Face is symmetric. Pupils are equal and reactive. Extraocular movements are intact. NECK: Supple. No JVD. No thyromegaly. No submental, submandibular, pre- /postauricular, occipital or supraclavicular lymphadenopathy. CHEST: Normal chest expansion. No Telemetry. LUNGS: Absence of any rales, rhonchi or any wheezing. CARDIOVASCULAR: Regular. S1 and S2 normal. No appreciable rubs, murmurs or gallops. ABDOMEN: Soft, nontender, and nondistended. There is no rebound, voluntary guarding, or rigidity. : Deferred. No Steinberg. EXTREMITIES: Non-edematous and not cyanotic. No clubbing. Good capillary refill. SKIN: No skin breakdown. Vital Sign (Last 24 Hours) 06/14/24 06/14/24 12:54 13:51 Temp 98.1 Pulse 146 Resp 16 B/P (MAP) 138/79 Pulse Ox 98 O2 Delivery Room Air* O2 Flow Rate 0 FiO2 21 LABS: Laboratory: Test 06/14/24 11:14 Range/Units White Blood Count 11.1 H 4.8-10.8 K/uL Red Blood Count 5.54 4.50-6.20 MIL/uL Hemoglobin 18.9 H 14.0-18.0 g/dL Hematocrit 51.1 42-54 % Mean Corpuscular Volume 92.2 79-99 fL Mean Corpuscular Hemoglobin 34.1 H 27.0-33.0 pg Mean Corpuscular Hemoglobin Concent 37.0 H 32.0-36.0 g/dL Red Cell Distribution Width 12.1 11.0-15.5 % Platelet Count 130 130-400 K/uL Mean Platelet Volume 9.8 7.5-10.5 fL Immature Granulocyte % (Auto) 0.2 0-1 % Neutrophils (%) (Auto) 83.1 H 40.0-77.0 % Lymphocytes (%) (Auto) 9.7 L 21.0-51.0 % Monocytes (%) (Auto) 6.0 3.0-13.0 % Eosinophils (%) (Auto) 0.4 0.0-8.0 % Basophils (%) (Auto) 0.6 0.0-5.0 % Neutrophils # (Auto) 9.2 H 1.8-7.7 K/uL Lymphocytes # (Auto) 1.1 1.0-4.8 K/uL Monocytes # (Auto) 0.7 0.1-1.0 K/uL Eosinophils # (Auto) 0.04 0.00-0.70 K/uL Basophils # (Auto) 0.07 0.00-0.20 K/uL Absolute Immature Granulocyte (auto 0.02 0-1 K/uL Nucleated Red Blood Cells 0.0 0.0-0.19 % White Cell Morphology Comment See comments Red Blood Cell Morphology ANISO 1+ Sodium Level 136 136-145 mmol/L Potassium Level 4.4 3.5-5.1 mmol/L Chloride Level 100 L 101-111 mmol/L Carbon Dioxide Level 24 21-32 mmol/L Blood Urea Nitrogen 3 L 7-18 mg/dL Creatinine 0.8 0.5-1.3 mg/dL Glomerular Filtration Rate Calc 118 >90 mL/min Random Glucose 135 H 70-105 mg/dL Total Calcium 9.0 8.5-10.1 mg/dL Magnesium Level 1.40 L 1.80-2.40 mg/dL Troponin I High Sensitivity 7 4-75 ng/L B-Type Natriuretic Peptide 21 0-100 pg/mL Serum Alcohol 6 0-10 mg/dL Current Medications Medications (Trade) Dose Ordered Sig/Dolores Route PRN Reason Start Time Stop Time Status Last Admin Dose Admin Acetaminophen (TYLenol 500MG TAB) 500 mg Q6H PRN PO TEMP < 101.1 AND/OR HEADACHE 06/14/24 14:30 07/14/24 14:29 Ceftriaxone Sodium (ROCEphine 1G INJ) 1 gm Q24H IVPB 06/14/24 14:00 06/24/24 13:59 Chlordiazepoxide HCl (LIBrium 25 MG CAP) 25 mg Q6H PO 06/14/24 14:00 06/21/24 13:59 Chlordiazepoxide HCl (LIBrium 25 MG CAP) 25 mg Q6H PRN PO ALCOHOL WITHDRAWAL PROTOCOL 06/14/24 14:30 06/21/24 14:29 Diltiazem HCl 125 mg/Sodium Chloride 125 ml @ 0 mls/hr PROTOCOL IV 06/14/24 14:00 07/14/24 13:59 06/14/24 13:51 5 MLS/HR Folic Acid (FOLic ACID 1 MG TABLET) 1 mg DAILY PO 06/15/24 09:00 06/17/24 09:01 Lorazepam (AtiVAN) 2 mg Q4H PRN IVP ALCOHOL WITHDRAWAL PROTOCOL 06/14/24 12:00 06/14/24 14:08 DC Lorazepam (AtiVAN) 2 mg Q4H PRN IVP ALCOHOL WITHDRAWAL PROTOCOL 06/14/24 14:30 06/21/24 14:29 Magnesium Sulfate 50 ml @ 0 mls/hr PROTOCOL IV 06/14/24 12:52 07/14/24 12:51 06/14/24 13:25 25 MLS/HR Multivitamins Therapeutic (Multivitamin Tablet) 1 tab DAILY PO 06/15/24 09:00 07/15/24 08:59 Octreotide Acetate 1250 mcg/ Sodium Chloride 250 ml @ 0 mls/hr PROTOCOL IV 06/14/24 14:00 07/14/24 13:59 Ondansetron HCl (zoFRAN 4MG INJ) 4 mg Q4H PRN IV NAUSEA 06/14/24 14:30 07/14/24 14:29 Pantoprazole Sodium 80 mg/ Sodium Chloride 100 ml @ 10 mls/hr Q10H IVP 06/14/24 14:00 07/14/24 13:59 Pharmacy Profile Note (Pharmacy Communication) 1 [facility] 06/14/24 11:49 06/21/24 11:48 Potassium Chloride 100 ml @ 100 mls/hr AD PRN IV POTASSIUM PROTOCOL 06/14/24 14:30 07/14/24 14:29 Potassium Chloride (K-Dur/Klor-Con 20meq) 20 meq AD PRN PO POTASSIUM PROTOCOL 06/14/24 14:30 07/14/24 14:29 Potassium Chloride (KCl 10% Elixir 20meq/15ml) 20 meq AD PRN PO POTASSIUM PROTOCOL 06/14/24 14:30 07/14/24 14:29 Thiamine HCl (Vitamin B-1) 100 mg Q24H IVP 06/14/24 14:30 06/18/24 14:30 Thiamine HCl 100 mg/Folic Acid 1 mg/Multivitamins/ Minerals 10 ml/ Sodium Chloride 1,011.2 ml @ 100 mls/ hr Q24H IV 06/14/24 12:00 06/16/24 22:07 06/14/24 12:47 100 MLS/HR DIAGNOSTICS / RADIOLOGY: Chest x-ray shows no acute infiltrates ASSESSMENT: Atrial fibrillation with RVR, POA History of paroxysmal atrial fibrillation, POA Moderate to severe alcohol withdrawal, POA Recent history of GI bleed with concerns for upper GI bleed, POA Underlying history of alcoholic liver cirrhosis, POA Polysubstance abuse with cocaine, alcohol and marijuana, POA Hypomagnesemia, POA Hypertension, POA Hyperlipidemia, POA History of medical noncompliance, POA Prior history of hematuria, POA PLAN: Patient will be admitted to cardiac telemetry floor With regards to moderate to severe alcohol withdrawals with significant tremors noted, we will start patient on scheduled Librium 25 mg q.6 hours, oxazepam [place] not available [place] [facility], we will place orders for Ativan for breakthrough withdrawals, and continue with [facility] protocol for close monitoring Continue with banana bag at 75 mL/hour, we will start patient on scheduled IV thiamine as well, folic acid and multivitamins Patient reports that about a week ago, he was having episodes of melena, hematochezia and episodes of streaky hematemesis with vomiting, reports being diagnosed with stage II liver cirrhosis in 2021 and continued to have significant alcohol use, patient will be started on octreotide drip, Protonix drip, IV Rocephin for SBP prophylaxis, we will obtain stool guaiac assess for bleeding, obtain consultation with GI With regards to atrial fibrillation with RVR, rate control with Cardizem drip at 5 milligrams/hour to maintain heart rate less than 110, we will hold off on anticoagulation pending cardiology and GI assessment Consultation with Cardiology and GI will be requested this admission Obtain right upper quadrant ultrasound to assess for significant cirrhosis, follow up portal vein blood flow we will obtain 2D echocardiogram Maintain K greater than four and magnesium greater than two Monitor H&H closely q.6 hours in case of bleeding, All labs will be repeated in the morning Anticipate hospitalization for at least 48-72 hours, we will obtain urine drug screen on this patient Patient was recommended to continue to cut down on drinking and abstain from marijuana and cocaine use, patient verbalized understanding Condition: Guarded Date of service: 06/14/2024 Plan of care was discussed with patient at bedside, Sammy Lorenzo MD Advanced Care Planning: Which of the following were discussed: Hospice care: Yes __ No _X_ Therapeutic options: Yes _X_ No __ Advance directives: Yes _X_ No __ Other discussions: Discussed with who?: Patient Voluntary nature of this service was explained to the patient? Yes _x_ No __ Amount of time spent: 20 minutes SAMMY LORENZO MD Jun 14, 2024 14:15
[2024-06-14] MEDS ORDERED: PoTASSium chloRIDE 20MEQ/100ML 100 ML IV PRN (14:30)
[2024-06-14] MEDS ORDERED: PoTASSium chl 10% ELIXIR 20MEQ 20 MEQ/15 ML UDCUP PO PRN (14:30)
[2024-06-14] MEDS ORDERED: PoTASSium chloRIDE 20MEQ ER 20 MEQ ERTAB PO PRN (14:30)
[2024-06-14] MEDS ORDERED: ondanSETRON 4MG INJ IV PRN (14:30)
[2024-06-14] MEDS ORDERED: acetaMINOPHEN 500 MG TABLET PO PRN (14:30)
--- NOTE | 2024-06-14 14:30 | HMCIMG ---
US ABDOMINAL RUQ\E\LTD HISTORY: Hydronephrosis COMPARISON: None TECHNIQUE: Right upper quadrant abdominal ultrasound study was performed. FINDINGS: Liver measures 16.6 cm. The visualized portion of the pancreas is within normal limits. Liver is echogenic consistent with liver parenchymal disease. Sludge material and gallstones are seen in the gallbladder. Common duct measures 4 mm. No evidence of gallbladder wall thickening is seen. Right kidney measures 11 x 5 x 5.1 cm. No hydronephrosis is seen of the right kidney. The study is limited due to overlying bowel gas. IMPRESSION: 1. Sludge material and gallstones in the gallbladder. No ductal dilatation is seen. 2. No hydronephrosis is seen.
--- NOTE | 2024-06-14 14:30 | HMCIMG ---
CHEST 1VW HISTORY: Infiltrates COMPARISON: 09/15/2022 FINDINGS: A frontal projection of the chest was obtained. No acute pulmonary infiltrates is seen. The heart is borderline enlarged. Prominent interstitial markings are seen. Degenerative changes are seen. IMPRESSION: 1. No acute pulmonary infiltrate is seen.
[2024-06-14] MEDS: chlordiazePOXIDE HCL 25 MG CAP PO SCH (14:44)
[2024-06-14] MEDS: THIAMINE HCL 100 MG/ML 2ML VIAL IVP SCH (14:45)
[2024-06-14] MEDS: cefTRIAXone 1G VIAL IVPB SCH (14:45)
[2024-06-14] MEDS: PANTOPrazole 40 MG/VIAL IVP ONE (14:47)
[2024-06-14] MEDS: octREOtide aceTATe 100 MCG/ML AMP IV ONE (14:51)
[2024-06-14] MEDS: PANTOPrazole 40MG INJ 80 MG in 0.9%NACL 100ML 100 ML IVP SCH (14:51)
[2024-06-14] MEDS: octREOtide aceTATe 1,250 MCG in 0.9% NACL 250ML 250 ML IV SCH (14:52)
[2024-06-14] MEDS ORDERED: COMPOUND IV REFRIGERATED 1 EACH IVSOLN MISC PRN (15:00)
[2024-06-14 15:14] LABS: HEMATOCRIT 34.4 % (42-54)
[2024-06-14 15:25] LABS: INR 1.66 (0.85-1.15); PROTHROMBIN TIME 17.3 SEC (9.6-11.6)
[2024-06-14 15:27] LABS: PARTIAL THROMBOPLASTIN TIME 42.4 SEC (26.3-35.5)
[2024-06-14 15:52] LABS: ALBUMIN 1.7 g/dL (3.5-5.0); BILIRUBIN,DIRECT 0.5 mg/dL (0.0-0.3); BILIRUBIN,TOTAL 1.5 mg/dL (0.2-1.0)
--- NOTE | 2024-06-14 18:00 | NUR ---
CARDIOLOGY CONSULT DR DE JESUS CALLED NO ANSWER
--- NOTE | 2024-06-14 18:46 | NUR ---
DR VICENTE SPOKE WITH DR LIZA ROMERO UP WITH PT.
[2024-06-14 20:54] LABS: HEMATOCRIT 43.7 % (42-54)
[2024-06-14 21:11] LABS: APPEARANCE,URINE CLEAR (CLEAR); BILIRUBIN,URINE NEGATIVE (NEGATIVE); COLOR,URINE YELLOW (YELLOW); GLUCOSE, URINE (UA) NEGATIVE (NEGATIVE); KETONES,URINE 5 mg/dL (NEGATIVE); LEUKOCYTE ESTERASE ,URINE NEGATIVE Leu/uL (NEGATIVE); NITRATE,URINE NEGATIVE (NEGATIVE); OCCULT BLOOD,URINE NEGATIVE (NEGATIVE); PROTEIN,URINE 20 mg/dL (NEGATIVE)
[2024-06-14 21:16] LABS: ADD UA MICROSCOPIC YES
[2024-06-14 21:18] LABS: MUCUS,URINE RARE LPF (None Seen); RBC,URINE 0-1 /HPF (0-1); SQUAMOUS EPITHELIAL CELL,UR RARE /HPF (0-2)
[2024-06-14 21:19] LABS: AMPHET/METH SCREEN,URINE NEGATIVE (NEGATIVE); BARBITURATE SCREEN, URINE NEGATIVE (NEGATIVE); BENZODIAZEPINES SCREEN,URINE NEGATIVE (NEGATIVE); CANNABINOID SCREEN,URINE NEGATIVE (NEGATIVE); COCAINE SCREEN,URINE NEGATIVE (NEGATIVE); OPIATE SCREEN,URINE NEGATIVE (NEGATIVE); PHENCYCLIDINE SCREEN,URINE NEGATIVE (NEGATIVE)
[2024-06-14 22:50] VITALS: O2SAT 100
[2024-06-14 22:51] VITALS: BP 124/88; PULSE 94; RESP 18; TEMP 98
[2024-06-15 03:20] VITALS: BP 110/55; PULSE 84; RESP 16; TEMP 97.9
--- NOTE | 2024-06-15 03:50 | CONS ---
GASTROENTEROLOGY CONSULTATION REASON FOR CONSULTATION: Nausea, vomiting with hematemesis, melena, hematochezia and abnormal abdominal imaging with ultrasound showing liver parenchymal disease and hepatomegaly. HISTORY OF PRESENT ILLNESS: The patient is a 34-year-old male with history of atrial fibrillation, chronic alcoholism, who was admitted earlier with nausea, vomiting, retching with subsequent hematemesis, melena and also hematochezia with acute anemia on labs, for which GI evaluation and management are sought. According to the patient, he has been having black tarry stool on and off over the last 3 weeks. He has been drinking still and noted today he had episodes of nausea, vomiting, mostly of phlegm or foam from the alcohol drink and retching episodes and later hematemesis. He reports he has also had episodes of red streak stools/hematochezia. The patient denies any abdominal pain, any constipation or diarrhea. He denies abdominal trauma or NSAID use. He has no significant weight loss. He denies family history of stomach cancer, liver disease, gallbladder disease, pancreatic disease, but admits paternal grandfather had colon cancer in his 70s. ALLERGIES: No known drug allergies. PAST MEDICAL HISTORY: The patient's medical records indicate history of schizophrenia and bipolar disorder. Also PTSD and medical noncompliance. SOCIAL HISTORY: The patient reports heavy alcohol use continuously. He had decreased consumption, but still drinks heavily. He started drinking alcohol at the age of 9. He has been drinking 12-18, 24 ounce cans of beers daily and is now drinking ounces. He has a history of cocaine abuse and occasional marijuana use. MEDICATIONS: Multivitamin, folic acid, potassium chloride, acetaminophen, ondansetron, lorazepam, chlordiazepoxide, thiamine, ceftriaxone, octreotide, pantoprazole, IV diltiazem, magnesium sulfate. FAMILY HISTORY: Hypertension, diabetes mellitus, coronary artery disease. No documented family history of myocardial infarction, cerebrovascular accident, liver disease, gallbladder disease, but paternal grandfather had colon cancer in his 70s. REVIEW OF SYSTEMS: CONSTITUTIONAL: The patient reports nausea and vomiting have subsided now since hospitalization. He has no melena now. Denies hematochezia. He has had no fevers or chills. DERMATOLOGY: Denies any rash, bruise or excessive dry skin. OPHTHALMOLOGY: No recent vision change, eye pain, periorbital swelling, redness or drainage. ENT: No ears pain, tinnitus, hearing loss, nasal congestion, rhinorrhea, sore throat or voice changes. RESPIRATORY: No wheeze, rhinorrhea, epistaxis, chest congestion or cough. CARDIOVASCULAR: No chest pain, palpitation or leg swelling. GASTROINTESTINAL: He has had nausea, vomiting with hematemesis and also melena and hematochezia. Denies constipation. He has no significant weight loss. MUSCULOSKELETAL: No joint pain, joint swelling or backache. GENITOURINARY: No dysuria, hematuria, urgency or frequency, but he reports urine has been more orange colored. NEUROLOGIC: No tingling, numbness, vision changes or hearing loss. PSYCHIATRY: He has a history of PTSD, schizophrenia, bipolar disorder 2 as per medical records. HEMATOLOGY: Has recent hematemesis, melena, hematochezia. He has no swollen, tender or palpable lymph node. PHYSICAL EXAMINATION: GENERAL: The patient is a 34-year-old male who appears his stated age, seen resting in bed, in no acute respiratory distress. VITAL SIGNS: Blood pressure 124/88, heart rate 94, respirations 18, temperature 98.1 degrees Fahrenheit. SKIN: Warm and dry with multiple tattoos over bilateral forearm and hands. HEENT: The patient's head is normocephalic, atraumatic. Pupils reactive, sclerae nonicteric. Oral mucosa was moist. No obvious lesion. No blood noted. Nasal mucosa showed no epistaxis or septal deviation. NECK: No obvious mass or jugular venous distention. No lymphadenopathy. No thyromegaly. LUNGS: Clear to auscultation bilaterally. HEART: S1, S2. No obvious murmurs, rubs or gallops ausculated. ABDOMEN: Symmetric, soft, mildly protuberant with normoactive bowel sounds. No hepatomegaly, no masses. Tenderness noted in the epigastrium. No rebound, no guarding. EXTREMITIES: No cyanosis, clubbing or edema. RECTAL: Deferred. LABORATORY DATA: WBC earlier was 18.9, hematocrit 51.1, MCV of 92.2. Followup hemoglobin 12.6, hematocrit 34.4. Repeat hemoglobin now 15.9, hematocrit 43.7. Platelet count was 130 earlier today. PT 17.3, INR 1.66. APTT of 42.4. Serum chemistry revealed sodium 136, potassium 4.4, chloride of 100, CO2 of 24, BUN of 3, creatinine 0.8, GFR 118. Random glucose of 135, total calcium of 9, magnesium level of 1.4. Ultrasound of the abdomen done earlier today showed sludge material and gallstone in the gallbladder, no ductal dilation is seen. No hydronephrosis is seen. Liver measured 16.6 cm. IMPRESSION: * Nausea and vomiting with hematemesis and melena plus acute anemia possible peptic ulcer bleed versus Jia-Seo tear and esophageal variceal bleed cannot be excluded in this patient. * History of alcohol abuse and reports of alcohol withdrawal tremors. * Atrial fibrillation. PLAN: * Antiemetics as needed. * Continue IV Protonix, IV octreotide drips. * Recommend EGD for further evaluation and management. * Follow up with a.m. labs. * Continue to monitor for and treat for alcohol withdrawal. Dr. Lorenzo, thank you for allowing me to participate in the care of this patient. TID: [id number] RECEIPT: [id number] cc: Sammy Lorenzo MD
[2024-06-15 04:30] LABS: BASOPHILS # (AUTO) 0.05 K/uL (0.00-0.20); BASOPHILS % (AUTO) 0.7 % (0.0-5.0); EOSINOPHILS # (AUTO) 0.17 K/uL (0.00-0.70); EOSINOPHILS % (AUTO) 2.5 % (0.0-8.0); HEMATOCRIT 43.9 % (42-54); IMMATURE GRANULOCYTE ABSOLUTE 0.03 K/uL (0-1); LYMPHOCYTES # (AUTO) 1.5 K/uL (1.0-4.8); LYMPHOCYTES % (AUTO) 21.9 % (21.0-51.0); MEAN CORPUSCULAR HEMOGLOBIN 34.4 pg (27.0-33.0); MEAN CORPUSCULAR HGB CONC 35.8 g/dL (32.0-36.0); MEAN CORPUSCULAR VOLUME 96.1 fL (79-99); MONOCYTES # (AUTO) 0.5 K/uL (0.1-1.0); MONOCYTES % (AUTO) 7.7 % (3.0-13.0); NEUTROPHILS # (AUTO) 4.5 K/uL (1.8-7.7); NEUTROPHILS % (AUTO) 66.8 % (40.0-77.0); PLATELET COUNT (AUTO) 88 K/uL (130-400); RED BLOOD CELL COUNT(AUTO) 4.57 MIL/uL (4.50-6.20); RED CELL DISTRIBUTION WIDTH 12.4 % (11.0-15.5); WHITE BLOOD COUNT (AUTO) 6.8 K/uL (4.8-10.8)
[2024-06-15 04:52] LABS: ALBUMIN 2.6 g/dL (3.5-5.0); BILIRUBIN,TOTAL 3.5 mg/dL (0.2-1.0); CREATININE 0.9 mg/dL (0.5-1.3); MAGNESIUM 1.8 mg/dL (1.80-2.40); POTASSIUM 4.1 mmol/L (3.5-5.1); TOTAL PROTEIN, SERUM 5.9 g/dL (6.0-8.3)
[2024-06-15 05:22] LABS: HIV 1&2 ANTIBODY Non-Reactive (Negative); HIV-1 p24 Antigen Non-Reactive (Negative)
--- NOTE | 2024-06-15 06:41 | EKG ---
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
[2024-06-15 08:04] VITALS: BP 129/91; PULSE 73; RESP 18; TEMP 98.3
[2024-06-15] MEDS: MULTIVITAMIN TABLET PO SCH (08:13)
[2024-06-15] MEDS: FOLic ACID 1 MG TABLET PO SCH (08:13)
[2024-06-15] MEDS: LORazepam 2 MG/ML 1 ML VIAL IVP PRN (08:13)
[2024-06-15] MEDS: chlordiazePOXIDE HCL 25 MG CAP PO PRN (08:15)
[2024-06-15 08:35] VITALS: O2SAT 100
--- NOTE | 2024-06-15 09:23 | NUR ---
DCP: HOME met with pt who was on hold waiting to talk to his insurance. Pt states he has [employer] and was trying to verify coverage started on Jun 10.Pt states he is currently unemployed, lives with his antonia Navas [phone] and her mother. ER contact is his mother Rossana Galindo [phone]. Pt reports he is independent of ADLS, no DME or in home care services. PCP is Shilo Lundberg. Pt denies dc needs and will return home at nc Addendum: 06/15/24 at 0931 by SUAD KEENE Amended: Links added.
--- NOTE | 2024-06-15 10:52 | PN ---
[facility] PROGRESS NOTE Date of Service: Jun 15, 2024 Time of Service: 10:27 SUBJECTIVE: 34 year old male with a history of paroxysmal atrial fibrillation, chronic alcoholism, and underlying history of suspected liver cirrohsis who presented to the ED with chief complaint of significant palpitations. The patient has been trying to cut down on his alcoholic drinking. The patient has a history of drinking 12-18 cans of 24 oz beers, and has been trying to cut his alcoholic use to 3 cans of 24oz beers a day. The patient is currently going through withdrawals, presenting with tremors and anxiety. The patient has a history of black tarry stools around one week ago, as well as streaks of blood when vomiting at that time. 06/15: The patient is being seen by GI and Cardiology. Per GI, the patients hematemesis and melena is due to possible peptic ulcer vs. Jia-Seo tear vs Esophageal variceal bleed. GI recommends an EGD and the patient has been placed NPO. In regards to the patients AFIB with RVR, the patient continues on a Cardizem drip. The patient was seen this morning at bedside. The patient has tremors, and is aggravated because he is very hungry. We will follow GI recommendation on diet advancement. We will continue to monitor the patient, and will continue to follow GI and cardiology recommendations. This plan has been discussed and approved by my attending Dr. Shanice Shanks. REVIEW OF SYSTEMS CONSTITUTIONAL: Generalized fatigue, malaise NEUROLOGICAL: Denies headache, amaurosis fugax, motor weakness, sensory deficit, vertigo/spinning sensation, gait abnormalities. Complains of tremors. ENT: No hearing loss, otalgia, otorrhea, rhinitis, rhinorrhea, hoarseness, or sore throat. CARDIOVASCULAR: Denies palpitations PULMONARY: Denies any shortness of breath, cough, phlegm/sputum, hemoptysis, pleuritic chest pain. SLEEP: Denies morning headaches, daytime somnolence or napping. Denies difficulty falling asleep, staying asleep, waking from sleep. Denies knowledge of snoring. GASTROINTESTINAL: Noticed recently that his stool was dark and tarry with episodes of hematochezia, patient also reports having episodes of hematemesis with vomiting GENITOURINARY: Denies frequency, urgency, nocturia, hematuria or incontinence (Storage/Irritative symptoms.) Low urinary stream, straining to void, urinary intermittency or hesitancy, splitting of the voiding stream, terminal dribbling. ENDOCRINOLOGIC: Denies polyuria, polydipsia, polyphagia or heat/cold intolerances. HEMATOLOGIC: Denies thrombophilia/previous clots, or coagulopathy/bleeding d isorders. ONCOLOGIC: Denies personal history of malignancy. DERMATOLOGIC: Denies rashes or pruritus. PSYCHIATRIC: Denies any suicidal or homicidal ideation. Denies hallucinations. PHYSICAL EXAM GENERAL APPEARANCE: The patient is awake, alert, appears diaphoretic, anxious, and tremulous NEUROLOGICAL: Cranial nerves II-XII grossly intact. Motor is 5/5 in bilateral upper and lower extremities proximal to distal. No sensory deficits. HEENT: Face is symmetric. Pupils are equal and reactive. Extraocular movements are intact. NECK: Supple. No JVD. No thyromegaly. No submental, submandibular, pre- /postauricular, occipital or supraclavicular lymphadenopathy. CHEST: Normal chest expansion. No Telemetry. LUNGS: Absence of any rales, rhonchi or any wheezing. CARDIOVASCULAR: Regular. S1 and S2 normal. No appreciable rubs, murmurs or gallops. ABDOMEN: Soft, nontender, and nondistended. There is no rebound, voluntary guarding, or rigidity. : Deferred. No Steinberg. EXTREMITIES: Non-edematous and not cyanotic. No clubbing. Good capillary refill. SKIN: No skin breakdown. Vital Signs (last 8hr) Date Time Temp Pulse Resp B/P (MAP) Pulse Ox O2 Delivery O2 Flow Rate FiO2 06/15/24 08:35 100 Room Air* 0 21 06/15/24 08:04 98.2 73 18 129/91 99 Room Air 06/15/24 03:20 97.9 84 16 110/55 100 Room Air LABS: Laboratory: Test 06/15/24 03:59 06/14/24 21:03 06/14/24 15:04 06/14/24 11:14 Range/Units White Blood Count 6.8 # 4.8-10.8 K/uL Red Blood Count 4.57 4.50-6.20 MIL/uL Hemoglobin 15.7 14.0-18.0 g/dL Hematocrit 43.9 42-54 % Mean Corpuscular Volume 96.1 79-99 fL Mean Corpuscular Hemoglobin 34.4 H 27.0-33.0 pg Mean Corpuscular Hemoglobin Concent 35.8 32.0-36.0 g/dL Red Cell Distribution Width 12.4 11.0-15.5 % Platelet Count 88 #L 130-400 K/uL Mean Platelet Volume 10.2 7.5-10.5 fL Immature Granulocyte % (Auto) 0.4 0-1 % Neutrophils (%) (Auto) 66.8 40.0-77.0 % Lymphocytes (%) (Auto) 21.9 21.0-51.0 % Monocytes (%) (Auto) 7.7 3.0-13.0 % Eosinophils (%) (Auto) 2.5 0.0-8.0 % Basophils (%) (Auto) 0.7 0.0-5.0 % Neutrophils # (Auto) 4.5 1.8-7.7 K/uL Lymphocytes # (Auto) 1.5 1.0-4.8 K/uL Monocytes # (Auto) 0.5 0.1-1.0 K/uL Eosinophils # (Auto) 0.17 0.00-0.70 K/uL Basophils # (Auto) 0.05 0.00-0.20 K/uL Absolute Immature Granulocyte (auto 0.03 0-1 K/uL Nucleated Red Blood Cells 0.0 0.0-0.19 % Sodium Level 138 136-145 mmol/L Potassium Level 4.1 3.5-5.1 mmol/L Chloride Level 105 101-111 mmol/L Carbon Dioxide Level 29 21-32 mmol/L Blood Urea Nitrogen 5 L 7-18 mg/dL Creatinine 0.9 0.5-1.3 mg/dL Glomerular Filtration Rate Calc 114 >90 mL/min Random Glucose 121 H 70-105 mg/dL Total Calcium 7.8 L 8.5-10.1 mg/dL Magnesium Level 1.80 1.80-2.40 mg/dL Total Bilirubin 3.5 #H 0.2-1.0 mg/dL Aspartate Amino Transf (AST/SGOT) 73 H 10-37 U/L Alanine Aminotransferase (ALT/SGPT) 59 # 12-78 U/L Alkaline Phosphatase 108 # 50-136 U/L Total Protein 5.9 #L 6.0-8.3 g/dL Albumin 2.6 #L 3.5-5.0 g/dL HIV (1&2) Antibody Non-Reactive Negative HIV P24 Antigen, Qualitative Non-Reactive Negative Urine Color YELLOW YELLOW Urine Appearance CLEAR CLEAR Urine pH 6.0 5.0-8.0 Urine Specific [place] 1.010 1.001-1.031 Urine Protein 20 H NEGATIVE mg/dL Urine Glucose (UA) NEGATIVE NEGATIVE mg/dL Urine Ketones 5 H NEGATIVE mg/dL Urine Occult Blood NEGATIVE NEGATIVE Urine Nitrate NEGATIVE NEGATIVE Urine Bilirubin NEGATIVE NEGATIVE mg/dL Urine Urobilinogen 2.0 H 0.2-1.0 mg/dL Urine Leukocyte Esterase NEGATIVE NEGATIVE Hilario/uL Urine RBC 0-1 0-1 /HPF Urine WBC 2-5 H 0-1 /HPF Urine Squamous Epithelial Cells RARE 0-2 /HPF Urine Bacteria None None Seen /HPF Urine Opiates Screen NEGATIVE NEGATIVE Urine Barbiturates Screen NEGATIVE NEGATIVE Urine Phencyclidine Screen NEGATIVE NEGATIVE Urine Amphetamines Screen NEGATIVE NEGATIVE Urine Benzodiazepines Screen NEGATIVE NEGATIVE Urine Cocaine Screen NEGATIVE NEGATIVE Urine Marijuana (THC) Screen NEGATIVE NEGATIVE Prothrombin Time 17.3 H 9.6-11.6 SEC Prothromb Time International Ratio 1.66 H 0.85-1.15 Activated Partial Thromboplast Time 42.4 H 26.3-35.5 SEC Hemoglobin A1c 5.0 4.0-6.0 % Estimated Average Glucose (eAG) 97 70-126 mg/dL Direct Bilirubin 0.5 H 0.0-0.3 mg/dL Ammonia 30 11-32 umol/L Thyroid Stimulating Hormone (TSH) 0.77 0.36-3.74 uIU/mL White Cell Morphology Comment See comments Red Blood Cell Morphology ANISO 1+ Troponin I High Sensitivity 7 4-75 ng/L B-Type Natriuretic Peptide 21 0-100 pg/mL Serum Alcohol 6 0-10 mg/dL Current Medications Medications (Trade) Dose Ordered Sig/Dolores Route PRN Reason Start Time Stop Time Status Last Admin Dose Admin Acetaminophen (TYLenol 500MG TAB) 500 mg Q6H PRN PO TEMP < 101.1 AND/OR HEADACHE 06/14/24 14:30 07/14/24 14:29 Ceftriaxone Sodium (ROCEphine 1G INJ) 1 gm Q24H IVPB 06/14/24 14:00 06/24/24 13:59 06/14/24 14:45 1 GM Chlordiazepoxide HCl (LIBrium 25 MG CAP) 25 mg Q6H PO 06/14/24 14:00 06/21/24 13:59 06/15/24 08:16 25 MG Chlordiazepoxide HCl (LIBrium 25 MG CAP) 25 mg Q6H PRN PO ALCOHOL WITHDRAWAL PROTOCOL 06/14/24 14:30 06/21/24 14:29 Diltiazem HCl 125 mg/Sodium Chloride 125 ml @ 0 mls/hr PROTOCOL IV 06/14/24 14:00 07/14/24 13:59 06/14/24 13:51 5 MLS/HR Folic Acid (FOLic ACID 1 MG TABLET) 1 mg DAILY PO 06/15/24 09:00 06/17/24 09:01 06/15/24 08:13 1 MG Lorazepam (AtiVAN) 2 mg Q4H PRN IVP ALCOHOL WITHDRAWAL PROTOCOL 06/14/24 12:00 06/14/24 14:08 DC Lorazepam (AtiVAN) 2 mg Q4H PRN IVP ALCOHOL WITHDRAWAL PROTOCOL 06/14/24 14:30 06/21/24 14:29 06/15/24 08:13 2 MG Magnesium Sulfate 50 ml @ 0 mls/hr PROTOCOL IV 06/14/24 12:52 07/14/24 12:51 06/14/24 13:25 25 MLS/HR Multivitamins Therapeutic (Multivitamin Tablet) 1 tab DAILY PO 06/15/24 09:00 07/15/24 08:59 06/15/24 08:13 1 TAB Octreotide Acetate 1250 mcg/ Sodium Chloride 250 ml @ 0 mls/hr PROTOCOL IV 06/14/24 14:00 07/14/24 13:59 06/14/24 14:52 5 MLS/HR Ondansetron HCl (zoFRAN 4MG INJ) 4 mg Q4H PRN IV NAUSEA 06/14/24 14:30 07/14/24 14:29 Pantoprazole Sodium 80 mg/ Sodium Chloride 100 ml @ 10 mls/hr Q10H IVP 06/14/24 14:00 07/14/24 13:59 06/15/24 08:21 10 MLS/HR Pharmacy Profile Note (Pharmacy Communication) 1 each PROTOCOL [facility] 06/14/24 11:49 06/21/24 11:48 Potassium Chloride 100 ml @ 100 mls/hr AD PRN IV POTASSIUM PROTOCOL 06/14/24 14:30 07/14/24 14:29 Potassium Chloride (K-Dur/Klor-Con 20meq) 20 meq AD PRN PO POTASSIUM PROTOCOL 06/14/24 14:30 07/14/24 14:29 Potassium Chloride (KCl 10% Elixir 20meq/15ml) 20 meq AD PRN PO POTASSIUM PROTOCOL 06/14/24 14:30 07/14/24 14:29 Thiamine HCl (Vitamin B-1) 100 mg Q24H IVP 06/14/24 14:30 06/18/24 14:30 06/14/24 14:45 100 MG Thiamine HCl 100 mg/Folic Acid 1 mg/Multivitamins/ Minerals 10 ml/ Sodium Chloride 1,011.2 ml @ 100 mls/ hr Q24H IV 06/14/24 12:00 06/16/24 22:07 06/14/24 12:47 100 MLS/HR DIAGNOSTICS / RADIOLOGY: [place] [id number] [place] [address] [id number] IMAGING REPORT Signed PATIENT: BLANCA UNGER MR#: [id number] : 1990 SEX: M AGE: 34 LOCATION: [facility] ORDER 05 STATUS: ADM IN REPORT#: [id number] SERVICE 04 REASON: assess for any significant infiltrates ORDERING PHYSICIAN: KILEY VICENTE MD PROCEDURE: CXR1VW - CHEST 1VW CHEST 1VW HISTORY: Infiltrates COMPARISON: 09/15/2022 FINDINGS: A frontal projection of the chest was obtained. No acute pulmonary infiltrates is seen. The heart is borderline enlarged. Prominent interstitial markings are seen. Degenerative changes are seen. IMPRESSION: 1. No acute pulmonary infiltrate is seen. DICTATED BY: SUNI KAUR MD DATE: 06/14/241426 ELECTRONICALLY SIGNED BY: SUNI KAUR MD DATE: 06/14/24 1430 [place] [id number] [place] [address] [id number] IMAGING REPORT Signed PATIENT: BLANCA UNGER MR#: [id number] : 1990 SEX: M AGE: 34 LOCATION: [facility] ORDER 134 STATUS: ADM IN REPORT#: [id number] SERVICE 1346 REASON: assess for changes of liver cirrhosis, heavy alcohol, assess portal flow ORDERING PHYSICIAN: KILEY VICENTE MD PROCEDURE: [id number] - US ABDOMINAL RUQ\LTD US ABDOMINAL RUQ\E\LTD HISTORY: Hydronephrosis COMPARISON: None TECHNIQUE: Right upper quadrant abdominal ultrasound study was performed. FINDINGS: Liver measures 16.6 cm. The visualized portion of the pancreas is within normal limits. Liver is echogenic consistent with liver parenchymal disease. Sludge material and gallstones are seen in the gallbladder. Common duct measures 4 mm. No evidence of gallbladder wall thickening is seen. Right kidney measures 11 x 5 x 5.1 cm. No hydronephrosis is seen of the right kidney. The study is limited due to overlying bowel gas. IMPRESSION: 1. Sludge material and gallstones in the gallbladder. No ductal dilatation is seen. 2. No hydronephrosis is seen. DICTATED BY: SUNI KAUR MD DATE: 06/14/241424 ELECTRONICALLY SIGNED BY: SUNI KAUR MD DATE: 06/14/241429 ASSESSMENT: Atrial fibrillation with RVR, POA History of paroxysmal atrial fibrillation, POA Moderate to severe alcohol withdrawal, POA Recent history of GI bleed with concerns for upper GI bleed, POA Underlying history of alcoholic liver cirrhosis, POA Polysubstance abuse with cocaine, alcohol and marijuana, POA Hypomagnesemia, POA Hypertension, POA Hyperlipidemia, POA History of medical noncompliance, POA Prior history of hematuria, POA PLAN: Moderate to severe alcohol withdrawal POA -Patient admitted to cardiac telemetry floor -Patient continues on scheduled Librium 25 mg q.6 hours, oxazepam is not available in [facility] [place], -Ativan for breakthrough withdrawals, -Continue with CIWA protocol for close monitoring -Continue with banana bag at 75 mL/hour -Patient started on scheduled IV thiamine as well, folic acid and multivitamins Recent history of GI bleed with concerns of upper GI bleed POA -GI consulted. We will continue to follow their recommendations. -Continue octreotide drip, Protonix drip, -Continue IV Rocephin for SBP prophylaxis, -Pending stool guaiac assess for bleeding, -Patient currently NPO. We will follow GI recommendation for advancement of diet Atrial fibrillation with RVR -Continue rate control with Cardizem drip at 5 milligrams/hour to maintain heart rate less than 110, -We will hold off on anticoagulation pending cardiology and GI assessment -Maintain K greater than four and magnesium greater than two -Monitor H&H closely q.6 hours in case of bleeding, All labs will be repeated in the morning -Obtain right upper quadrant ultrasound to assess for significant cirrhosis, follow up portal vein blood flow we will obtain 2D echocardiogram -Anticipate hospitalization for at least 48-72 hours, we will obtain urine drug screen on this patient -Patient was recommended to continue to cut down on drinking and abstain from marijuana and cocaine use, patient verbalized understanding This plan was discussed and approved by my attending, THELMA Bonilla MD Jun 15, 2024 10:52
[2024-06-15 12:10] VITALS: BP 132/81; PULSE 84; RESP 18; TEMP 97.8
--- NOTE | 2024-06-15 16:03 | CONS ---
[facility] CONSULTATION NOTE Date Patient Seen: Jun 15, 2024 Time of Visit: 1141 Supervising Physician: Dr. Caicedo Reason for Consultation: Possible DTs Inpatient Consults: BIS PROBLEM LIST: Atrial fibrillation with RVR, POA History of paroxysmal atrial fibrillation, POA Moderate to severe alcohol withdrawal, POA Recent history of GI bleed with concerns for upper GI bleed, POA Underlying history of alcoholic liver cirrhosis, POA Polysubstance abuse with cocaine, alcohol and marijuana, POA Hypomagnesemia, POA Hypertension, POA Hyperlipidemia, POA History of medical noncompliance, POA Prior history of hematuria, POA HPI: 34-year-old male with history of paroxysmal atrial fibrillation, chronic alcoholism, underlying history of suspected liver cirrhosis who presented to the ER with chief complaint of significant palpitations. Patient has a history of heavy alcohol use in states that he has been trying to cut down on alcohol. He previously used to drink about 12-18 cans of 24 oz beers daily and recently over the last several days, he has been trying to cut down to three cans of beers of 24 oz. Last alcoholic drink was earlier this morning. He has been having significant shakes and anxiety since cutting down on alcohol. Denies previous history of seizures. Patient was seen and examined at bedside with family and primary nurse present. Patient currently on room air appears to be tolerating well. At time of visit patient denies any chest pain or shortness of breadth. Patient also denies nausea vomiting or abdominal pain. Patient to continue with Protonix and Sandostatin drip per GI recommendations. Patient to continue on Cardizem drip cardiology's recommendations. At time of visit patient does not appear to be agitated having any type seizure activity. Patient's vital signs have remained stable. Pulmonology/critical Care were consulted for possible DTs due to chronic alcoholism. Thank you for allowing us to participate in care of this patient recommendations are listed below. Plan summary From a critical care standpoint patient has remained stable, therefore pulmonology/critical Care we will sign off feel free to reconsult if CIWA score becomes severe, and requires ICU Continue CIWA protocol Continue scheduled [id number] mg every 6 hours Continue Ativan as needed Continue banana bag Continue thiamine folic acid and multivitamin Continue to follow GI and cardiology's recommendations PAST MEDICAL HX: see above PAST SURGICAL HX: noncontributory SOCIAL HISTORY: No tobacco, ETOH, or illicit drug use Coded Allergies: No Known Allergies (Unverified Allergy, Unknown, 12/12/18) REVIEW OF SYSTEMS: 12 point ROS reviewed with patient. Pertinent positives mentioned above. Otherwise negative. PHYSICAL EXAM: GENERAL: alert, weak, awake oriented x 3 HEENT: EOMI, Sclera non icteric, moist mucosa NECK: Supple, no JVD, trachea midline LUNGS: Clear breath sounds bilaterally. No wheezes HEART: Regular rate and rhythm. Normal S1 and S2, without murmurs ABD: Abdomen soft, nontender. Bowel sounds present EXT: No clubbing cyanosis or edema NEURO: Alert and oriented to person, follows commands Vital Signs (last 8hr) Date Time Temp Pulse Resp B/P (MAP) Pulse Ox O2 Delivery O2 Flow Rate FiO2 06/15/24 12:10 97.9 84 18 132/81 99 Room Air 06/15/24 10:37 73 129/91 06/15/24 08:35 100 Room Air* 0 21 06/15/24 08:04 98.2 73 18 129/91 99 Room Air LABS: Hematology Labs: Test 06/15/24 03:59 06/14/24 11:14 Range/Units White Blood Count 6.8 # 4.8-10.8 K/uL Red Blood Count 4.57 4.50-6.20 MIL/uL Hemoglobin 15.7 14.0-18.0 g/dL Hematocrit 43.9 42-54 % Mean Corpuscular Volume 96.1 79-99 fL Mean Corpuscular Hemoglobin 34.4 H 27.0-33.0 pg Mean Corpuscular Hemoglobin Concent 35.8 32.0-36.0 g/dL Red Cell Distribution Width 12.4 11.0-15.5 % Platelet Count 88 #L 130-400 K/uL Mean Platelet Volume 10.2 7.5-10.5 fL Immature Granulocyte % (Auto) 0.4 0-1 % Neutrophils (%) (Auto) 66.8 40.0-77.0 % Lymphocytes (%) (Auto) 21.9 21.0-51.0 % Monocytes (%) (Auto) 7.7 3.0-13.0 % Eosinophils (%) (Auto) 2.5 0.0-8.0 % Basophils (%) (Auto) 0.7 0.0-5.0 % Neutrophils # (Auto) 4.5 1.8-7.7 K/uL Lymphocytes # (Auto) 1.5 1.0-4.8 K/uL Monocytes # (Auto) 0.5 0.1-1.0 K/uL Eosinophils # (Auto) 0.17 0.00-0.70 K/uL Basophils # (Auto) 0.05 0.00-0.20 K/uL Absolute Immature Granulocyte (auto 0.03 0-1 K/uL Nucleated Red Blood Cells 0.0 0.0-0.19 % White Cell Morphology Comment See comments Red Blood Cell Morphology ANISO 1+ Chemistry Labs: Test 06/15/24 03:59 06/14/24 15:04 06/14/24 11:14 Range/Units Sodium Level 138 136-145 mmol/L Potassium Level 4.1 3.5-5.1 mmol/L Chloride Level 105 101-111 mmol/L Carbon Dioxide Level 29 21-32 mmol/L Blood Urea Nitrogen 5 L 7-18 mg/dL Creatinine 0.9 0.5-1.3 mg/dL Glomerular Filtration Rate Calc 114 >90 mL/min Random Glucose 121 H 70-105 mg/dL Total Calcium 7.8 L 8.5-10.1 mg/dL Magnesium Level 1.80 1.80-2.40 mg/dL Total Bilirubin 3.5 #H 0.2-1.0 mg/dL Aspartate Amino Transf (AST/SGOT) 73 H 10-37 U/L Alanine Aminotransferase (ALT/SGPT) 59 # 12-78 U/L Alkaline Phosphatase 108 # 50-136 U/L Total Protein 5.9 #L 6.0-8.3 g/dL Albumin 2.6 #L 3.5-5.0 g/dL Hemoglobin A1c 5.0 4.0-6.0 % Estimated Average Glucose (eAG) 97 70-126 mg/dL Direct Bilirubin 0.5 H 0.0-0.3 mg/dL Ammonia 30 11-32 umol/L Thyroid Stimulating Hormone (TSH) 0.77 0.36-3.74 uIU/mL Troponin I High Sensitivity 7 4-75 ng/L B-Type Natriuretic Peptide 21 0-100 pg/mL Coagulation Labs: Test 06/14/24 15:04 Range/Units Prothrombin Time 17.3 H 9.6-11.6 SEC Prothromb Time International Ratio 1.66 H 0.85-1.15 Activated Partial Thromboplast Time 42.4 H 26.3-35.5 SEC DIAGNOSTICS / RADIOLOGY RESULTS: na PLAN NEURO: Minimize central acting medications as possible. Maintain fall precautions, adequate lighting during the day PULMONARY: Supplemental 02 as needed. Maintain aspiration precautions at all times CARDIOVASCULAR: Follow hemodynamics. Vital signs per facility protocol GI & NUTRITION: Continue with nutritional support. Continue stool softeners and laxatives as needed. KIDNEYS & ELECTROLYTES: Strict monitoring of intake, output and overall fluid balance. Avoid nephrotoxic medications to the extent possible. Medications to be dosed according to renal function. Monitor electrolytes and replace as needed ENDOCRINE: Maintain blood glucose between 100-180 at all times. Hypoglycemia protocol in place INFECTIOUS DISEASE: Trend temperature, WBC and procalcitonin level Follow cultures, deescalate antibiotics as soon as possible. Panculture if new onset fever ONCOLOGY/HEMATOLOGY/COAGULATION: Monitor for s/s of bleeding Monitor hemoglobin, coagulation studies as needed SKIN: Pressure ulcer prevention per facility protocol Specialty mattress ORTHO/REHAB: Continue PT/OT Prophylaxis: Continue GI and DVT prophylaxis Code Status: Full Resuscitation Disposition: Per primary team Other: Case discussed with supervising physician plan of care agreed upon TERRI KATE Jun 15, 2024 16:03
[2024-06-15 16:34] VITALS: BP 137/78; PULSE 88; RESP 18; TEMP 98.4
--- NOTE | 2024-06-15 20:00 | NUR ---
PT AWAKE AND ALERT, DENIES DISCOMFORT, NO SOB OR LABORED RESPIRATIONS. CONTINUES ON CARDIZEM DRIP AT 5MG/HR, PROTONIX AND SANDOSTATIN DRIP ORDERED. DENIES NAUSEA OR EMESIS, DENIES ANY GI BLEED AT THIS TIME. AWARE OF PLAN FOR EGD IN AM AND AWARE OF NPO STATUS AFTER MIDNIGHT. PT ACKNOWLEDGED ALL INFORMATION. CALL LIGHT WITHIN REACH, TELEMETRY MONITORING, BED ALARM ON.
[2024-06-15 20:25] VITALS: BP 122/79; PULSE 104; RESP 18; TEMP 98.4
[2024-06-16] VITALS (8 sets, daily range): BP systolic 86–139; BP diastolic 52–84; PULSE 82–113; RESP 18–20; TEMP 98.1–98.8; O2SAT 97
--- NOTE | 2024-06-16 06:53 | PN ---
[facility] PROGRESS NOTE Date of Service: Jun 16, 2024 Time of Service: 06:53 SUBJECTIVE: 34 year old male with a history of paroxysmal atrial fibrillation, chronic alcoholism, and underlying history of suspected liver cirrohsis who presented to the ED with chief complaint of significant palpitations. The patient has been trying to cut down on his alcoholic drinking. The patient has a history of drinking 12-18 cans of 24 oz beers, and has been trying to cut his alcoholic use to 3 cans of 24oz beers a day. The patient is currently going through withdrawals, presenting with tremors and anxiety. The patient has a history of black tarry stools around one week ago, as well as streaks of blood when vomiting at that time. 06/15: The patient is being seen by GI and Cardiology. Per GI, the patients hematemesis and melena is due to possible peptic ulcer vs. Jia-Seo tear vs Esophageal variceal bleed. GI recommends an EGD and the patient has been placed NPO. In regards to the patients AFIB with RVR, the patient continues on a Cardizem drip. The patient was seen this morning at bedside. The patient has tremors, and is aggravated because he is very hungry. We will follow GI recommendation on diet advancement. We will continue to monitor the patient, and will continue to follow GI and cardiology recommendations. This plan has been discussed and approved by my attending Dr. Shanice Shanks. 06/16 the patient has been seen and examined earlier this morning during my rounding, the patient remains in the PCU, alert and oriented x3, not combative, not agitated, he is on Sandostatin and Protonix drip, he is also on Cardizem drip. Patient has been recommended EGD, however per my discussion with the him he is still thinking about it. Currently he denied chest pain, no shortness a breath, no nausea, no. No family members at bedside during my visit. REVIEW OF SYSTEMS CONSTITUTIONAL: Generalized fatigue, malaise NEUROLOGICAL: Denies headache, amaurosis fugax, motor weakness, sensory defici t, vertigo/spinning sensation, gait abnormalities. Complains of tremors. ENT: No hearing loss, otalgia, otorrhea, rhinitis, rhinorrhea, hoarseness, or sore throat. CARDIOVASCULAR: Denies palpitations PULMONARY: Denies any shortness of breath, cough, phlegm/sputum, hemoptysis, pleuritic chest pain. SLEEP: Denies morning headaches, daytime somnolence or napping. Denies difficulty falling asleep, staying asleep, waking from sleep. Denies knowledge of snoring. GASTROINTESTINAL: Noticed recently that his stool was dark and tarry with episodes of hematochezia, patient also reports having episodes of hematemesis with vomiting GENITOURINARY: Denies frequency, urgency, nocturia, hematuria or incontinence (Storage/Irritative symptoms.) Low urinary stream, straining to void, urinary intermittency or hesitancy, splitting of the voiding stream, terminal dribbling. ENDOCRINOLOGIC: Denies polyuria, polydipsia, polyphagia or heat/cold intolerances. HEMATOLOGIC: Denies thrombophilia/previous clots, or coagulopathy/bleeding disorders. ONCOLOGIC: Denies personal history of malignancy. DERMATOLOGIC: Denies rashes or pruritus. PSYCHIATRIC: Denies any suicidal or homicidal ideation. Denies hallucinations. PHYSICAL EXAM GENERAL APPEARANCE: The patient is awake, alert, appears diaphoretic, anxious, and tremulous NEUROLOGICAL: Cranial nerves II-XII grossly intact. Motor is 5/5 in bilateral upper and lower extremities proximal to distal. No sensory deficits. HEENT: Face is symmetric. Pupils are equal and reactive. Extraocular movements are intact. NECK: Supple. No JVD. No thyromegaly. No submental, submandibular, pre- /postauricular, occipital or supraclavicular lymphadenopathy. CHEST: Normal chest expansion. No Telemetry. LUNGS: Absence of any rales, rhonchi or any wheezing. CARDIOVASCULAR: Regular. S1 and S2 normal. No appreciable rubs, murmurs or gallops. ABDOMEN: Soft, nontender, and nondistended. There is no rebound, voluntary guarding, or rigidity. : Deferred. No Steinberg. EXTREMITIES: Non-edematous and not cyanotic. No clubbing. Good capillary refill. SKIN: No skin breakdown. Vital Signs (last 8hr) Date Time Temp Pulse Resp B/P (MAP) Pulse Ox O2 Delivery O2 Flow Rate FiO2 06/16/24 04:18 98.8 82 18 108/77 98 Room Air 06/16/24 00:28 98.1 83 18 106/69 97 Room Air LABS: Laboratory: Test 06/15/24 03:59 06/14/24 21:03 06/14/24 15:04 06/14/24 11:14 Range/Units White Blood Count 6.8 # 4.8-10.8 K/uL Red Blood Count 4.57 4.50-6.20 MIL/uL Hemoglobin 15.7 14.0-18.0 g/dL Hematocrit 43.9 42-54 % Mean Corpuscular Volume 96.1 79-99 fL Mean Corpuscular Hemoglobin 34.4 H 27.0-33.0 pg Mean Corpuscular Hemoglobin Concent 35.8 32.0-36.0 g/dL Red Cell Distribution Width 12.4 11.0-15.5 % Platelet Count 88 #L 130-400 K/uL Mean Platelet Volume 10.2 7.5-10.5 fL Immature Granulocyte % (Auto) 0.4 0-1 % Neutrophils (%) (Auto) 66.8 40.0-77.0 % Lymphocytes (%) (Auto) 21.9 21.0-51.0 % Monocytes (%) (Auto) 7.7 3.0-13.0 % Eosinophils (%) (Auto) 2.5 0.0-8.0 % Basophils (%) (Auto) 0.7 0.0-5.0 % Neutrophils # (Auto) 4.5 1.8-7.7 K/uL Lymphocytes # (Auto) 1.5 1.0-4.8 K/uL Monocytes # (Auto) 0.5 0.1-1.0 K/uL Eosinophils # (Auto) 0.17 0.00-0.70 K/uL Basophils # (Auto) 0.05 0.00-0.20 K/uL Absolute Immature Granulocyte (auto 0.03 0-1 K/uL Nucleated Red Blood Cells 0.0 0.0-0.19 % Sodium Level 138 136-145 mmol/L Potassium Level 4.1 3.5-5.1 mmol/L Chloride Level 105 101-111 mmol/L Carbon Dioxide Level 29 21-32 mmol/L Blood Urea Nitrogen 5 L 7-18 mg/dL Creatinine 0.9 0.5-1.3 mg/dL Glomerular Filtration Rate Calc 114 >90 mL/min Random Glucose 121 H 70-105 mg/dL Total Calcium 7.8 L 8.5-10.1 mg/dL Magnesium Level 1.80 1.80-2.40 mg/dL Total Bilirubin 3.5 #H 0.2-1.0 mg/dL Aspartate Amino Transf (AST/SGOT) 73 H 10-37 U/L Alanine Aminotransferase (ALT/SGPT) 59 # 12-78 U/L Alkaline Phosphatase 108 # 50-136 U/L Total Protein 5.9 #L 6.0-8.3 g/dL Albumin 2.6 #L 3.5-5.0 g/dL Hepatitis C Antibody Non-Reactive Nonreactive HIV (1&2) Antibody Non-Reactive Negative HIV P24 Antigen, Qualitative Non-Reactive Negative Urine Color YELLOW YELLOW Urine Appearance CLEAR CLEAR Urine pH 6.0 5.0-8.0 Urine Specific [place] 1.010 1.001-1.031 Urine Protein 20 H NEGATIVE mg/dL Urine Glucose (UA) NEGATIVE NEGATIVE mg/dL Urine Ketones 5 H NEGATIVE mg/dL Urine Occult Blood NEGATIVE NEGATIVE Urine Nitrate NEGATIVE NEGATIVE Urine Bilirubin NEGATIVE NEGATIVE mg/dL Urine Urobilinogen 2.0 H 0.2-1.0 mg/dL Urine Leukocyte Esterase NEGATIVE NEGATIVE Hilario/uL Urine RBC 0-1 0-1 /HPF Urine WBC 2-5 H 0-1 /HPF Urine Squamous Epithelial Cells RARE 0-2 /HPF Urine Bacteria None None Seen /HPF Urine Opiates Screen NEGATIVE NEGATIVE Urine Barbiturates Screen NEGATIVE NEGATIVE Urine Phencyclidine Screen NEGATIVE NEGATIVE Urine Amphetamines Screen NEGATIVE NEGATIVE Urine Benzodiazepines Screen NEGATIVE NEGATIVE Urine Cocaine Screen NEGATIVE NEGATIVE Urine Marijuana (THC) Screen NEGATIVE NEGATIVE Prothrombin Time 17.3 H 9.6-11.6 SEC Prothromb Time International Ratio 1.66 H 0.85-1.15 Activated Partial Thromboplast Time 42.4 H 26.3-35.5 SEC Hemoglobin A1c 5.0 4.0-6.0 % Estimated Average Glucose (eAG) 97 70-126 mg/dL Direct Bilirubin 0.5 H 0.0-0.3 mg/dL Ammonia 30 11-32 umol/L Thyroid Stimulating Hormone (TSH) 0.77 0.36-3.74 uIU/mL White Cell Morphology Comment See comments Red Blood Cell Morphology ANISO 1+ Troponin I High Sensitivity 7 4-75 ng/L B-Type Natriuretic Peptide 21 0-100 pg/mL Serum Alcohol 6 0-10 mg/dL Current Medications Medications (Trade) Dose Ordered Sig/Dolores Route PRN Reason Start Time Stop Time Status Last Admin Dose Admin Acetaminophen (TYLenol 500MG TAB) 500 mg Q6H PRN PO TEMP < 101.1 AND/OR HEADACHE 06/14/24 14:30 07/14/24 14:29 Ceftriaxone Sodium (ROCEphine 1G INJ) 1 gm Q24H IVPB 06/14/24 14:00 06/24/24 13:59 06/15/24 14:36 1 GM Chlordiazepoxide HCl (LIBrium 25 MG CAP) 25 mg Q2H PRN PO ALCOHOL WITHDRAWAL PROTOCOL 06/15/24 12:30 06/22/24 12:29 Chlordiazepoxide HCl (LIBrium 25 MG CAP) 25 mg Q6H PO 06/14/24 14:00 06/21/24 13:59 06/16/24 02:27 25 MG Chlordiazepoxide HCl (LIBrium 25 MG CAP) 25 mg Q6H PRN PO ALCOHOL WITHDRAWAL PROTOCOL 06/14/24 14:30 06/15/24 12:10 DC Diltiazem HCl 125 mg/Sodium Chloride 125 ml @ 0 mls/hr PROTOCOL IV 06/14/24 14:00 07/14/24 13:59 06/15/24 10:37 5 MLS/HR Folic Acid (FOLic ACID 1 MG TABLET) 1 mg DAILY PO 06/15/24 09:00 06/17/24 09:01 06/15/24 08:13 1 MG Lorazepam (AtiVAN) 2 mg Q4H PRN IVP ALCOHOL WITHDRAWAL PROTOCOL 06/14/24 12:00 06/14/24 14:08 DC Lorazepam (AtiVAN) 2 mg Q4H PRN IVP ALCOHOL WITHDRAWAL PROTOCOL 06/14/24 14:30 06/21/24 14:29 06/15/24 17:14 2 MG Magnesium Sulfate 50 ml @ 0 mls/hr PROTOCOL IV 06/14/24 12:52 07/14/24 12:51 06/14/24 13:25 25 MLS/HR Multivitamins Therapeutic (Multivitamin Tablet) 1 tab DAILY PO 06/15/24 09:00 07/15/24 08:59 06/15/24 08:13 1 TAB Octreotide Acetate 1250 mcg/ Sodium Chloride 250 ml @ 0 mls/hr PROTOCOL IV 06/14/24 14:00 07/14/24 13:59 06/14/24 14:52 5 MLS/HR Ondansetron HCl (zoFRAN 4MG INJ) 4 mg Q4H PRN IV NAUSEA 06/14/24 14:30 07/14/24 14:29 Pantoprazole Sodium 80 mg/ Sodium Chloride 100 ml @ 10 mls/hr Q10H IVP 06/14/24 14:00 07/14/24 13:59 06/16/24 05:52 10 MLS/HR Pharmacy Profile Note (Pharmacy Communication) 1 [facility] 06/14/24 11:49 06/21/24 11:48 Potassium Chloride 100 ml @ 100 mls/hr AD PRN IV POTASSIUM PROTOCOL 06/14/24 14:30 07/14/24 14:29 Potassium Chloride (K-Dur/Klor-Con 20meq) 20 meq AD PRN PO POTASSIUM PROTOCOL 06/14/24 14:30 07/14/24 14:29 Potassium Chloride (KCl 10% Elixir 20meq/15ml) 20 meq AD PRN PO POTASSIUM PROTOCOL 06/14/24 14:30 07/14/24 14:29 Thiamine HCl (Vitamin B-1) 100 mg Q24H IVP 06/14/24 14:30 06/18/24 14:30 06/15/24 14:37 100 MG Thiamine HCl 100 mg/Folic Acid 1 mg/Multivitamins/ Minerals 10 ml/ Sodium Chloride 1,011.2 ml @ 100 mls/ hr Q24H IV 06/14/24 12:00 06/16/24 22:07 06/15/24 12:20 100 MLS/HR DIAGNOSTICS / RADIOLOGY: [ ] ASSESSMENT: Atrial fibrillation with RVR, POA History of paroxysmal atrial fibrillation, POA Moderate to severe alcohol withdrawal, POA Recent history of GI bleed with concerns for upper GI bleed, POA Underlying history of alcoholic liver cirrhosis, POA Polysubstance abuse with cocaine, alcohol and marijuana, POA Hypomagnesemia, POA Hypertension, POA Hyperlipidemia, POA History of medical noncompliance, POA Prior history of hematuria, POA PLAN: Moderate to severe alcohol withdrawal POA -Patient admitted to cardiac telemetry floor -Patient continues on scheduled Librium 25 mg q.6 hours, oxazep[place] [facility] [place], -Ativan for breakthrough withdrawals, -Continue with CIOH protocol for close monitoring -Continue with banana bag at 75 mL/hour -Patient started on scheduled IV thiamine as well, folic acid and multivitamins Recent history of GI bleed with concerns of upper GI bleed POA -GI consulted. Pending EGD -Continue octreotide drip, Protonix drip, -Continue IV Rocephin for SBP prophylaxis, -Pending stool guaiac assess for bleeding, -Patient currently NPO. We will follow GI recommendation for advancement of diet Atrial fibrillation with RVR -Continue rate control with Cardizem drip at 5 milligrams/hour to maintain heart rate less than 110, -We will hold off on anticoagulation pending cardiology and GI assessment -Maintain K greater than four and magnesium greater than two -Monitor H&H closely q.6 hours in case of bleeding, All labs will be repeated in the morning -ultrasound abdomen sludge material and gallstones in the gallbladder no ductal dilatation, no hydronephrosis. -Anticipate hospitalization for at least 48-72 hours, we will obtain urine drug screen on this patient -Patient was recommended to continue to cut down on drinking and abstain from marijuana and cocaine use, patient verbalized understanding Disposition: The patient remains admitted to the PCU, continue Protonix and Sandostatin drip, continue Cardizem drip, pending EGD by GI if patient gives consent. Total visit time greater than 30 minutes. BAY FORBES MD Jun 16, 2024 06:53
--- NOTE | 2024-06-16 10:11 | HMCSR ---
APPROVED REPORT EXAM: Two-dimensional and M-mode echocardiogram with Doppler and color Doppler. INDICATION ICD: atrial fibrillation with RVR, r/o cardiomyopathy 2D Dimensions RVDd4.0 cmLVEF(%)66.7 (>50%)LVED Vol(simp.)89.9 mL IVSd1.2 (0.7-1.1cm)FS(%)36 %LVES Vol(simp.)42.1 mL LVDd3.6 (3.8-5.6cm)LA (2D)3.7 (1.6-4.0cm)LVEF(%, simp.)53 % PWd1.4 (0.7-1.1cm)Ao Root(2D)3.5 (2.0-3.7cm)LA ESV INDEX (4CH)20.90 mL/m2 IVSs1.4 cmLVOT diam2.1 (1.8-2.4cm)LA ESV INDEX (2CH)25.40 mL/m2 LVDs2.3 (2.5-4.0cm)LA ESV INDEX (BP)25.90 mL/m2 PWs1.7 cm M-Mode Dimensions EPSS0.5 cm LA (MM)3.2 (1.6-4.0cm) Ao Root(MM)3.4 (2.0-3.7cm) Aortic Valve AoV VTI0.2 mAo Mean GR3.0 mmHgLVOT VTI0.13 m GOLD (VMAX)2.3 cm2AVA (VTI) 2.3 cm2 Mitral Valve MV E Vmax68.4 cm/sDECEL [id number] ms MV A Vmax22.3 cm/sP 1/2 T54 ms E/A ratio3.1MVA (PHT)4.1 cm2 TDI E/E' Medial8.1E/E' Lateral4.8 Medial E' Peak V8.40 cm/sLateral E' Peak V14.30 cm/s Left Ventricle Left ventricular cavity size is normal. There is normal LV segmental wall motion. Mild concentric lef t ventricular hypertrophy. LVEF is 50-55%. The left ventricular diastolic function is normal. Right Ventricle The right ventricle is normal size. Right ventricular systolic function is mildly reduced. Atria The left atrium size is normal. The right atrium size is normal. Aortic Valve The aortic valve is normal in structure and function. No aortic regurgitation is present. There is no aortic valvular stenosis. Mitral Valve The mitral valve is normal in structure and function. There is no mitral valve regurgitation noted. T here is no mitral valve stenosis. Tricuspid Valve The tricuspid valve is normal in structure and function. There is no tricuspid valve regurgitation no tomy. Pulmonic Valve The pulmonary valve is normal in structure and function. There is no pulmonic valvular regurgitation. Great Vessels The aortic root is normal in size. IVC is dilated and collapses <50% with inspiration. Pericardium No pericardial effusion. Other Information Rhythm : Atrial Fibrillation Conclusion LVEF is 50-55%. LVEF is 50-55%.
[2024-06-16] MEDS: LORazepam 2 MG/ML 1 ML VIAL IVP PRN (12:40)
[2024-06-16] MEDS ORDERED: proPOFol 10 MG/ML 20ML VIAL IV ONE (13:55)
[2024-06-16] MEDS ORDERED: LIDOCAINE PF 100MG/5ML (2%) SYRINGE 5ML ONE (13:56)
[2024-06-16] MEDS ORDERED: MIDAZOLAM HCL 1 MG/ML 2ML VIAL ONE (14:01)
--- NOTE | 2024-06-16 19:23 | CONS ---
CARDIOLOGY CONSULT HPI; This is a 34-year-old male past medical history of prediabetes, hypertension, alcohol abuse history of atrial fibrillation noncompliant with medication presented to the ED for WITH NAUSEA VOMITING PALPITATIONS AND FEELING VERY ANX IOUS. We have consulted as patient was found to be in A-fib with RVR. Patient states he denies any chest pain or shortness of breath to me. At moments he does feel like his heart is racing. During my visit she is currently on the Cardizem drip plan is for EGD workup. Patient states he has not been compliant with medication as he was incarcerated and did not have insurance at that time. Past medical history As mentioned above Social history Alcohol abuse Surgical history noncontributory ROS: General: No malaise or fever. Neurological: No fainting episodes or seizures. HEENT: No nasal congestion or nasal secretion. Cardiac: No chest pain or + palpitations. Gastrointestinal: No vomiting or diarrhea. Skin: No rashes or lesions. Hematological: No bruises or bleeding. Musculoskeletal: No joint pains or arthralgias. Psychiatric: No depression or panic attacks. Patient History: Diabetes mellitus MOTHER FHx: hyperlipidemia MOTHER Hypertension MOTHER Vertigo MOTHER Vitals/Labs PE: GENERAL APPEARANCE: The patient is awake, alert, anxious NEUROLOGICAL: Cranial nerves II-XII grossly intact. Motor is 5/5 in bilateral upper and lower extremities proximal to distal. No sensory deficits. HEENT: Face is symmetric. Pupils are equal and reactive. Extraocular movements are intact. NECK: Supple. No JVD. No thyromegaly. . CHEST: irregular hr, no murmurs, gallops or rubs, no other adventitious sounds LUNGS: Absence of any rales, rhonchi or any wheezing. CARDIOVASCULAR: Regular. S1 and S2 normal. No appreciable rubs, murmurs or gallops. ABDOMEN: Soft, nontender, and nondistended. There is no rebound, voluntary guarding, or rigidity. EXTREMITIES: Non-edematous and not cyanotic. No clubbing. Good capillary refill. SKIN: No skin breakdown. Vital Signs Date Time Temp Pulse Resp B/P (MAP) Pulse Ox O2 Delivery O2 Flow Rate FiO2 06/16/24 16:44 98.8 100 18 86/52 97 Nasal Cannula 06/16/24 08:00 0 21 Allergies: Coded Allergies: No Known Allergies (Unverified Allergy, Unknown, 12/12/18) Medications Current Medications Sodium Chloride 1,000 ml @ 0 mls/hr ONCE ONCE IV Last administered on 06/14/24at 11:45; Start 06/14/24 at 11:30; Stop 06/14/24 at 11:31; Status DC Lorazepam 1 mg ONCE ONCE IVP Last administered on 06/14/24at 11:45; Start 06/14/24 at 11:30; Stop 06/14/24 at 11:31; Status DC Metoprolol Tartrate 5 mg ONCE ONCE IV Last administered on 06/14/24at 11:51; Start 06/14/24 at 12:00; Stop 06/14/24 at 12:01; Status DC Lorazepam 2 mg Q4H PRN IVP; Start 06/14/24 at 12:00; Stop 06/14/24 at 14:08; Status DC Thiamine HCl 100 mg/Folic Acid 1 mg/Multivitamins/ Minerals 10 ml/ Sodium Chloride 1,011.2 ml @ 100 mls/ hr Q24H IV Last administered on 06/16/24at 15:30; Start 06/14/24 at 12:00; Stop 06/16/24 at 22:07 Pharmacy Profile Note 1 each PROTOCOL MISC; Start 06/14/24 at 11:49; Stop 06/21/24 at 11:48 Metoprolol Tartrate 5 mg ONCE ONCE IV Last administered on 06/14/24at 12:50; Start 06/14/24 at 12:30; Stop 06/14/24 at 12:31; Status DC Magnesium Sulfate 50 ml @ 0 mls/hr PROTOCOL IV Last administered on 06/14/24at 13:25; Start 06/14/24 at 12:52; Stop 07/14/24 at 12:51 Lorazepam 1 mg ONCE ONCE IVP Last administered on 06/14/24at 13:26; Start 06/14/24 at 13:00; Stop 06/14/24 at 13:01; Status DC Diltiazem HCl 125 ml @ As Directed STK-MED ONCE IV; Start 06/14/24 at 13:38; Stop 06/14/24 at 13:38; Status DC Diltiazem HCl 125 mg/Sodium Chloride 125 ml @ 0 mls/hr PROTOCOL IV Last administered on 06/15/24at 10:37; Start 06/14/24 at 14:00; Stop 07/14/24 at 13:59 Chlordiazepoxide HCl 25 mg Q6H PO Last administered on 06/16/24at 15:29; Start 06/14/24 at 14:00; Stop 06/21/24 at 13:59 Pantoprazole Sodium 80 mg/ Sodium Chloride 100 ml @ 10 mls/hr Q10H IVP Last administered on 06/16/24at 15:30; Start 06/14/24 at 14:00; Stop 07/14/24 at 13:59 Pantoprazole Sodium 80 mg ONCE ONCE IVP Last administered on 06/14/24at 14:47; Start 06/14/24 at 14:00; Stop 06/14/24 at 14:04; Status DC Octreotide Acetate 50 mcg ONCE ONCE IV Last administered on 06/14/24at 14:51; Start 06/14/24 at 14:00; Stop 06/14/24 at 14:04; Status DC Octreotide Acetate 1250 mcg/ Sodium Chloride 250 ml @ 0 mls/hr PROTOCOL IV Last administered on 06/14/24at 14:52; Start 06/14/24 at 14:00; Stop 07/14/24 at 13:59 Ceftriaxone Sodium 1 gm Q24H IVPB Last administered on 06/16/24at 15:30; Start 06/14/24 at 14:00; Stop 06/24/24 at 13:59 Thiamine HCl 100 mg Q24H IVP Last administered on 06/16/24at 15:29; Start 06/14/24 at 14:30; Stop 06/18/24 at 14:30 Chlordiazepoxide HCl 25 mg Q6H PRN PO; Start 06/14/24 at 14:30; Stop 06/15/24 at 12:10; Status DC Lorazepam 2 mg Q4H PRN IVP Last administered on 06/16/24at 09:56; Start 06/14/24 at 14:30; Stop 06/21/24 at 14:29 Ondansetron HCl 4 mg Q4H PRN IV; Start 06/14/24 at 14:30; Stop 07/14/24 at 14:29 Acetaminophen 500 mg Q6H PRN PO; Start 06/14/24 at 14:30; Stop 07/14/24 at 14:29 Folic Acid 1 mg DAILY PO Last administered on 06/15/24at 08:13; Start 06/15/24 at 09:00; Stop 06/17/24 at 09:01 Multivitamins Therapeutic 1 tab DAILY PO Last administered on 06/15/24at 08:13; Start 06/15/24 at 09:00; Stop 07/15/24 at 08:59 Potassium Chloride 100 ml @ 100 mls/hr AD PRN IV; Start 06/14/24 at 14:30; Stop 07/14/24 at 14:29 Potassium Chloride 20 meq AD PRN PO; Start 06/14/24 at 14:30; Stop 07/14/24 at 14:29 Potassium Chloride 20 meq AD PRN PO; Start 06/14/24 at 14:30; Stop 07/14/24 at 14:29 Chlordiazepoxide HCl 25 mg Q2H PRN PO; Start 06/15/24 at 12:30; Stop 06/22/24 at 12:29 Lorazepam 0.5 mg Q4HPRN PRN IVP Last administered on 06/16/24at 12:40; Start 06/16/24 at 12:30; Stop 06/23/24 at 12:29 Propofol 200 mg STK-MED ONCE IV; Start 06/16/24 at 13:55; Stop 06/16/24 at 13:56; Status DC Lidocaine HCl 100 mg STK-MED ONCE .ROUTE; Start 06/16/24 at 13:56; Stop 06/16/24 at 13:56; Status DC Midazolam HCl 2 mg STK-MED ONCE .ROUTE; Start 06/16/24 at 14:01; Stop 06/16/24 at 14:01; Status DC ASSESSMENT: 1. Atrial fibrillation with RVR 2. Alcohol abuse 3. Hypertension, hyperlipidemia prediabetes 4. Noncompliance From a cardiovascular standpoint patient an echocardiogram that revealed normal EF. Will continue Cardizem for rate control would also initiate patient on low- dose beta-blockers however this will be difficult to increase secondary to patient having lower blood pressures. If patient becomes difficult to control we will consider cardioversion Patient is undergo an EGD workup tomorrow, will institute patient's anticoagulation after as he has a high [id number] score. Will follow-up tomorrow DERRICK LEROY Jun 16, 2024 19:23
[2024-06-16] MEDS: metoPROLOL tartRATE 25 MG TAB PO SCH (20:48)
[2024-06-17] VITALS (14 sets, daily range): BP systolic 110–150; BP diastolic 62–110; PULSE 70–106; RESP 16–20; TEMP 97.6–98.8; O2SAT 97
[2024-06-17 04:47] LABS: HEMATOCRIT 36.9 % (42-54); MEAN CORPUSCULAR HEMOGLOBIN 34.8 pg (27.0-33.0); MEAN CORPUSCULAR HGB CONC 36.3 g/dL (32.0-36.0); MEAN CORPUSCULAR VOLUME 95.8 fL (79-99); RED BLOOD CELL COUNT(AUTO) 3.85 MIL/uL (4.50-6.20); RED CELL DISTRIBUTION WIDTH 12.3 % (11.0-15.5); WHITE BLOOD COUNT (AUTO) 5.6 K/uL (4.8-10.8)
[2024-06-17 05:22] LABS: PLATELET COUNT (AUTO) 85 K/uL (130-400); PLATELET MORPHOLOGY COMMENT DECREASED
[2024-06-17 05:26] LABS: ALBUMIN 2.4 g/dL (3.5-5.0); BILIRUBIN,TOTAL 1.6 mg/dL (0.2-1.0); CREATININE 0.8 mg/dL (0.5-1.3); MAGNESIUM 1.6 mg/dL (1.80-2.40); POTASSIUM 3.3 mmol/L (3.5-5.1); TOTAL PROTEIN, SERUM 5.6 g/dL (6.0-8.3)
--- NOTE | 2024-06-17 08:18 | PN ---
[facility] PROGRESS NOTE Date of Service: Jun 17, 2024 Time of Service: 08:18 SUBJECTIVE: 34 year old male with a history of paroxysmal atrial fibrillation, chronic alcoholism, and underlying history of suspected liver cirrohsis who presented to the ED with chief complaint of significant palpitations. The patient has been trying to cut down on his alcoholic drinking. The patient has a history of drinking 12-18 cans of 24 oz beers, and has been trying to cut his alcoholic use to 3 cans of 24oz beers a day. The patient is currently going through withdrawals, presenting with tremors and anxiety. The patient has a history of black tarry stools around one week ago, as well as streaks of blood when vomiting at that time. 06/15: The patient is being seen by GI and Cardiology. Per GI, the patients hematemesis and melena is due to possible peptic ulcer vs. Jia-Seo tear vs Esophageal variceal bleed. GI recommends an EGD and the patient has been placed NPO. In regards to the patients AFIB with RVR, the patient continues on a Cardizem drip. The patient was seen this morning at bedside. The patient has tremors, and is aggravated because he is very hungry. We will follow GI recommendation on diet advancement. We will continue to monitor the patient, and will continue to follow GI and cardiology recommendations. This plan has been discussed and approved by my attending Dr. Shanice Shanks. 06/16 the patient has been seen and examined earlier this morning during my rounding, the patient remains in the PCU, alert and oriented x3, not combative, not agitated, he is on Sandostatin and Protonix drip, he is also on Cardizem drip. Patient has been recommended EGD, however per my discussion with the him he is still thinking about it. Currently he denied chest pain, no shortness a breath, no nausea, no. No family members at bedside during my visit. 06/17 the patient has been seen and examined earlier this morning during my rounding, the patient remains in the PCU, alert and oriented x3, not combative, not agitated, he is on Sandostatin and Protonix drip, also on banana bag. He remains NPO, awaiting EGD today. REVIEW OF SYSTEMS CONSTITUTIONAL: Generalized fatigue, malaise NEUROLOGICAL: Denies headache, amaurosis fugax, motor weakness, sensory deficit, vertigo/spinning sensation, gait abnormalities. Complains of tremors. ENT: No hearing loss, otalgia, otorrhea, rhinitis, rhinorrhea, hoarseness, or sore throat. CARDIOVASCULAR: Denies palpitations PULMONARY: Denies any shortness of breath, cough, phlegm/sputum, hemoptysis, pl euritic chest pain. SLEEP: Denies morning headaches, daytime somnolence or napping. Denies difficulty falling asleep, staying asleep, waking from sleep. Denies knowledge of snoring. GASTROINTESTINAL: Noticed recently that his stool was dark and tarry with episodes of hematochezia, patient also reports having episodes of hematemesis with vomiting GENITOURINARY: Denies frequency, urgency, nocturia, hematuria or incontinence (Storage/Irritative symptoms.) Low urinary stream, straining to void, urinary intermittency or hesitancy, splitting of the voiding stream, terminal dribbling. ENDOCRINOLOGIC: Denies polyuria, polydipsia, polyphagia or heat/cold intolerances. HEMATOLOGIC: Denies thrombophilia/previous clots, or coagulopathy/bleeding disorders. ONCOLOGIC: Denies personal history of malignancy. DERMATOLOGIC: Denies rashes or pruritus. PSYCHIATRIC: Denies any suicidal or homicidal ideation. Denies hallucinations. PHYSICAL EXAM GENERAL APPEARANCE: The patient is awake, alert, appears diaphoretic, anxious, and tremulous NEUROLOGICAL: Cranial nerves II-XII grossly intact. Motor is 5/5 in bilateral upper and lower extremities proximal to distal. No sensory deficits. HEENT: Face is symmetric. Pupils are equal and reactive. Extraocular movements are intact. NECK: Supple. No JVD. No thyromegaly. No submental, submandibular, pre- /postauricular, occipital or supraclavicular lymphadenopathy. CHEST: Normal chest expansion. No Telemetry. LUNGS: Absence of any rales, rhonchi or any wheezing. CARDIOVASCULAR: Regular. S1 and S2 normal. No appreciable rubs, murmurs or gallops. ABDOMEN: Soft, nontender, and nondistended. There is no rebound, voluntary guarding, or rigidity. : Deferred. No Steinberg. EXTREMITIES: Non-edematous and not cyanotic. No clubbing. Good capillary refill. SKIN: No skin breakdown. Vital Signs (last 8hr) Date Time Temp Pulse Resp B/P (MAP) Pulse Ox O2 Delivery O2 Flow Rate FiO2 06/17/24 07:04 97 Room Air* 0 21 06/17/24 04:36 18 LABS: Laboratory: Test 06/17/24 04:32 Range/Units White Blood Count 5.6 4.8-10.8 K/uL Red Blood Count 3.85 L 4.50-6.20 MIL/uL Hemoglobin 13.4 L 14.0-18.0 g/dL Hematocrit 36.9 L 42-54 % Mean Corpuscular Volume 95.8 79-99 fL Mean Corpuscular Hemoglobin 34.8 H 27.0-33.0 pg Mean Corpuscular Hemoglobin Concent 36.3 H 32.0-36.0 g/dL Red Cell Distribution Width 12.3 11.0-15.5 % Platelet Count 85 L 130-400 K/uL Mean Platelet Volume 9.8 7.5-10.5 fL Nucleated Red Blood Cells 0.0 0.0-0.19 % Platelet Morphology Comment DECREASED Sodium Level 143 136-145 mmol/L Potassium Level 3.3 L 3.5-5.1 mmol/L Chloride Level 109 101-111 mmol/L Carbon Dioxide Level 24 21-32 mmol/L Blood Urea Nitrogen 7 7-18 mg/dL Creatinine 0.8 0.5-1.3 mg/dL Glomerular Filtration Rate Calc 118 >90 mL/min Random Glucose 112 H 70-105 mg/dL Total Calcium 7.2 L 8.5-10.1 mg/dL Magnesium Level 1.60 L 1.80-2.40 mg/dL Total Bilirubin 1.6 H 0.2-1.0 mg/dL Aspartate Amino Transf (AST/SGOT) 51 H 10-37 U/L Alanine Aminotransferase (ALT/SGPT) 44 12-78 U/L Alkaline Phosphatase 91 50-136 U/L Total Protein 5.6 L 6.0-8.3 g/dL Albumin 2.4 L 3.5-5.0 g/dL Current Medications Medications (Trade) Dose Ordered Sig/Dolores Route PRN Reason Start Time Stop Time Status Last Admin Dose Admin Acetaminophen (TYLenol 500MG TAB) 500 mg Q6H PRN PO TEMP < 101.1 AND/OR HEADACHE 06/14/24 14:30 1/4/25 14:29 Ceftriaxone Sodium (ROCEphine 1G INJ) 1 gm Q24H IVPB 06/14/24 14:00 06/24/24 13:59 06/16/24 15:30 1 GM Chlordiazepoxide HCl (LIBrium 25 MG CAP) 25 mg Q2H PRN PO ALCOHOL WITHDRAWAL PROTOCOL 06/15/24 12:30 06/22/24 12:29 Chlordiazepoxide HCl (LIBrium 25 MG CAP) 25 mg Q6H PO 06/14/24 14:00 06/21/24 13:59 06/17/24 01:54 25 MG Chlordiazepoxide HCl (LIBrium 25 MG CAP) 25 mg Q6H PRN PO ALCOHOL WITHDRAWAL PROTOCOL 06/14/24 14:30 06/15/24 12:10 DC Diltiazem HCl 125 mg/Sodium Chloride 125 ml @ 0 mls/hr PROTOCOL IV 06/14/24 14:00 07/14/24 13:59 06/15/24 10:37 5 MLS/HR Folic Acid (FOLic ACID 1 MG TABLET) 1 mg DAILY PO 06/15/24 09:00 06/17/24 09:01 06/15/24 08:13 1 MG Lorazepam (AtiVAN) 0.5 mg Q4HPRN PRN IVP ANXIETY/AGITATION 06/16/24 12:30 06/23/24 12:29 06/16/24 12:40 0.5 MG Lorazepam (AtiVAN) 2 mg Q4H PRN IVP ALCOHOL WITHDRAWAL PROTOCOL 06/14/24 12:00 06/14/24 14:08 DC Lorazepam (AtiVAN) 2 mg Q4H PRN IVP ALCOHOL WITHDRAWAL PROTOCOL 06/14/24 14:30 06/21/24 14:29 06/16/24 09:56 2 MG Magnesium Sulfate 50 ml @ 0 mls/hr PROTOCOL IV 06/14/24 12:52 07/14/24 12:51 06/17/24 06:11 25 MLS/HR Metoprolol Tartrate (loprESSOR) 12.5 mg BID PO 06/16/24 21:00 07/16/24 20:59 06/16/24 20:48 12.5 MG Multivitamins Therapeutic (Multivitamin Tablet) 1 tab DAILY PO 06/15/24 09:00 07/15/24 08:59 06/15/24 08:13 1 TAB Octreotide Acetate 1250 mcg/ Sodium Chloride 250 ml @ 0 mls/hr PROTOCOL IV 06/14/24 14:00 07/14/24 13:59 06/14/24 14:52 5 MLS/HR Ondansetron HCl (zoFRAN 4MG INJ) 4 mg Q4H PRN IV NAUSEA 06/14/24 14:30 07/14/24 14:29 Pantoprazole Sodium 80 mg/ Sodium Chloride 100 ml @ 10 mls/hr Q10H IVP 06/14/24 14:00 07/14/24 13:59 06/17/24 01:54 10 MLS/HR Pharmacy Profile Note (Pharmacy Communication) 1 each PROTOCOL MISC 06/14/24 11:49 06/21/24 11:48 Potassium Chloride 100 ml @ 100 mls/hr AD PRN IV POTASSIUM PROTOCOL 06/14/24 14:30 07/14/24 14:29 Potassium Chloride (K-Dur/Klor-Con 20meq) 20 meq AD PRN PO POTASSIUM PROTOCOL 06/14/24 14:30 07/14/24 14:29 Potassium Chloride (KCl 10% Elixir 20meq/15ml) 20 meq AD PRN PO POTASSIUM PROTOCOL 06/14/24 14:30 07/14/24 14:29 Thiamine HCl (Vitamin B-1) 100 mg Q24H IVP 06/14/24 14:30 06/18/24 14:30 06/16/24 15:29 100 MG Thiamine HCl 100 mg/Folic Acid 1 mg/Multivitamins/ Minerals 10 ml/ Sodium Chloride 1,011.2 ml @ 100 mls/ hr Q24H IV 06/14/24 12:00 06/16/24 22:07 DC 06/16/24 15:30 100 MLS/HR DIAGNOSTICS / RADIOLOGY: [ ] ASSESSMENT: Atrial fibrillation with RVR, POA History of paroxysmal atrial fibrillation, POA Moderate to severe alcohol withdrawal, POA Recent history of GI bleed with concerns for upper GI bleed, POA Underlying history of alcoholic liver cirrhosis, POA Polysubstance abuse with cocaine, alcohol and marijuana, POA Hypomagnesemia, POA Hypertension, POA Hyperlipidemia, POA History of medical noncompliance, POA Prior history of hematuria, POA PLAN: Moderate to severe alcohol withdrawal POA -Patient admitted to cardiac telemetry floor -Patient continues on scheduled Librium 25 mg q.6 hours, oxazepam is not available in [facility] formulary, -Ativan for breakthrough withdrawals, -Continue with [facility] protocol for close monitoring -Continue with banana bag at 75 mL/hour -Patient started on scheduled IV thiamine as well, folic acid and multivitamins Recent history of GI bleed with concerns of upper GI bleed POA -GI consulted. Pending EGD -Continue octreotide drip, Protonix drip, -Continue IV Rocephin for SBP prophylaxis, -Pending stool guaiac assess for bleeding, -Patient currently NPO. We will follow GI recommendation for advancement of diet Atrial fibrillation with RVR -Continue rate control with Cardizem drip at 5 milligrams/hour to maintain heart rate less than 110, -We will hold off on anticoagulation pending cardiology and GI assessment -Maintain K greater than four and magnesium greater than two -Monitor H&H closely q.6 hours in case of bleeding, All labs will be repeated in the morning -ultrasound abdomen sludge material and gallstones in the gallbladder no ductal dilatation, no hydronephrosis. -Anticipate hospitalization for at least 48-72 hours, we will obtain urine drug screen on this patient -Patient was recommended to continue to cut down on drinking and abstain from marijuana and cocaine use, patient verbalized understanding Disposition: The patient remains admitted to the PCU, continue Protonix and Sandostatin drip, possible EGD today by GI. Total visit time greater than 30 minutes. BAY FORBES MD Jun 17, 2024 08:18
[2024-06-17] MEDS ORDERED: MAGNESIUM 2GM PREMIX 50ML 50 ML IV SCH (08:30)
[2024-06-17] MEDS: PoTASSium chloRIDE 20MEQ/100ML 100 ML IV ONE (08:54)
[2024-06-17] MEDS ORDERED: proPOFol 10 MG/ML 20ML VIAL IV ONE (13:17)
[2024-06-17] MEDS ORDERED: LIDOCAINE HCL MPF 1% 5ML VIAL ONE (13:17)
[2024-06-17] MEDS ORDERED: MIDAZOLAM HCL 1 MG/ML 2ML VIAL ONE (13:17)
[2024-06-17] MEDS: chlordiazePOXIDE HCL 25 MG CAP PO PRN (18:42)
--- NOTE | 2024-06-17 22:19 | PN ---
HPI: pt was seen and examined today he underwent EDG with GI today Vitals/Labs Vital Signs Date Time Temp Pulse Resp B/P (MAP) Pulse Ox O2 Delivery O2 Flow Rate FiO2 06/17/24 19:59 97 Room Air* 0 21 06/17/24 19:44 98.1 106 18 130/107 Laboratory Tests 06/17/24 04:32 Medications Current Medications Sodium Chloride 1,000 ml @ 0 mls/hr ONCE ONCE IV Last administered on 06/14/24at 11:45; Start 06/14/24 at 11:30; Stop 06/14/24 at 11:31; Status DC Lorazepam 1 mg ONCE ONCE IVP Last administered on 06/14/24at 11:45; Start 06/14/24 at 11:30; Stop 06/14/24 at 11:31; Status DC Metoprolol Tartrate 5 mg ONCE ONCE IV Last administered on 06/14/24at 11:51; Start 06/14/24 at 12:00; Stop 06/14/24 at 12:01; Status DC Lorazepam 2 mg Q4H PRN IVP; Start 06/14/24 at 12:00; Stop 06/14/24 at 14:08; Status DC Thiamine HCl 100 mg/Folic Acid 1 mg/Multivitamins/ Minerals 10 ml/ Sodium Chloride 1,011.2 ml @ 100 mls/ hr Q24H IV Last administered on 06/16/24at 15:30; Start 06/14/24 at 12:00; Stop 06/16/24 at 22:07; Status DC Pharmacy Profile Note 1 each PROTOCOL MISC; Start 06/14/24 at 11:49; Stop 06/21/24 at 11:48 Metoprolol Tartrate 5 mg ONCE ONCE IV Last administered on 06/14/24at 12:50; Start 06/14/24 at 12:30; Stop 06/14/24 at 12:31; Status DC Magnesium Sulfate 50 ml @ 0 mls/hr PROTOCOL IV Last administered on 06/17/24at 06:11; Start 06/14/24 at 12:52; Stop 07/14/24 at 12:51 Lorazepam 1 mg ONCE ONCE IVP Last administered on 06/14/24at 13:26; Start 06/14/24 at 13:00; Stop 06/14/24 at 13:01; Status DC Diltiazem HCl 125 ml @ As Directed STK-MED ONCE IV; Start 06/14/24 at 13:38; Stop 06/14/24 at 13:38; Status DC Diltiazem HCl 125 mg/Sodium Chloride 125 ml @ 0 mls/hr PROTOCOL IV Last administered on 06/15/24at 10:37; Start 06/14/24 at 14:00; Stop 07/14/24 at 13:59 Chlordiazepoxide HCl 25 mg Q6H PO Last administered on 06/17/24at 01:54; Start 06/14/24 at 14:00; Stop 06/21/24 at 13:59 Pantoprazole Sodium 80 mg/ Sodium Chloride 100 ml @ 10 mls/hr Q10H IVP Last administered on 06/17/24at 01:54; Start 06/14/24 at 14:00; Stop 06/17/24 at 18:04; Status DC Pantoprazole Sodium 80 mg ONCE ONCE IVP Last administered on 06/14/24at 14:47; Start 06/14/24 at 14:00; Stop 06/14/24 at 14:04; Status DC Octreotide Acetate 50 mcg ONCE ONCE IV Last administered on 06/14/24at 14:51; Start 06/14/24 at 14:00; Stop 06/14/24 at 14:04; Status DC Octreotide Acetate 1250 mcg/ Sodium Chloride 250 ml @ 0 mls/hr PROTOCOL IV Last administered on 06/14/24at 14:52; Start 06/14/24 at 14:00; Stop 07/14/24 at 13:59 Ceftriaxone Sodium 1 gm Q24H IVPB Last administered on 06/16/24at 15:30; Start 06/14/24 at 14:00; Stop 06/24/24 at 13:59 Thiamine HCl 100 mg Q24H IVP Last administered on 06/16/24at 15:29; Start 06/14/24 at 14:30; Stop 06/18/24 at 14:30 Chlordiazepoxide HCl 25 mg Q6H PRN PO; Start 06/14/24 at 14:30; Stop 06/15/24 at 12:10; Status DC Lorazepam 2 mg Q4H PRN IVP Last administered on 06/17/24at 21:01; Start 06/14/24 at 14:30; Stop 06/21/24 at 14:29 Ondansetron HCl 4 mg Q4H PRN IV; Start 06/14/24 at 14:30; Stop 07/14/24 at 14:29 Acetaminophen 500 mg Q6H PRN PO; Start 06/14/24 at 14:30; Stop 07/14/24 at 14:29 Folic Acid 1 mg DAILY PO Last administered on 06/15/24at 08:13; Start 06/15/24 at 09:00; Stop 06/17/24 at 09:01; Status DC Multivitamins Therapeutic 1 tab DAILY PO Last administered on 06/15/24at 08:13; Start 06/15/24 at 09:00; Stop 07/15/24 at 08:59 Potassium Chloride 100 ml @ 100 mls/hr AD PRN IV; Start 06/14/24 at 14:30; Stop 07/14/24 at 14:29 Potassium Chloride 20 meq AD PRN PO; Start 06/14/24 at 14:30; Stop 07/14/24 at 14:29 Potassium Chloride 20 meq AD PRN PO; Start 06/14/24 at 14:30; Stop 07/14/24 at 14:29 Chlordiazepoxide HCl 25 mg Q2H PRN PO Last administered on 06/17/24at 18:42; Start 06/15/24 at 12:30; Stop 06/22/24 at 12:29 Lorazepam 0.5 mg Q4HPRN PRN IVP Last administered on 06/16/24at 12:40; Start 06/16/24 at 12:30; Stop 06/23/24 at 12:29 Propofol 200 mg STK-MED ONCE IV; Start 06/16/24 at 13:55; Stop 06/16/24 at 13:56; Status DC Lidocaine HCl 100 mg STK-MED ONCE .ROUTE; Start 06/16/24 at 13:56; Stop 06/16/24 at 13:56; Status DC Midazolam HCl 2 mg STK-MED ONCE .ROUTE; Start 06/16/24 at 14:01; Stop 06/16/24 at 14:01; Status DC Metoprolol Tartrate 12.5 mg BID PO Last administered on 06/17/24at 21:03; Start 06/16/24 at 21:00; Stop 07/16/24 at 20:59 Potassium Chloride 100 ml @ 50 mls/hr ONCE ONCE IV Last administered on 06/17/24at 08:54; Start 06/17/24 at 08:30; Stop 06/17/24 at 10:29; Status DC Magnesium Sulfate 50 ml @ 0 mls/hr PROTOCOL IV; Start 06/17/24 at 08:30; Stop 07/17/24 at 08:29 Lidocaine HCl 5 ml STK-MED ONCE .ROUTE; Start 06/17/24 at 13:17; Stop 06/17/24 at 13:18; Status DC Midazolam HCl 2 mg STK-MED ONCE .ROUTE; Start 06/17/24 at 13:17; Stop 06/17/24 at 13:18; Status DC Propofol 200 mg STK-MED ONCE IV; Start 06/17/24 at 13:17; Stop 06/17/24 at 13:18; Status DC Pantoprazole Sodium 40 mg DAILY PO; Start 06/18/24 at 09:00; Stop 07/29/24 at 09:01 ASSESSMENT: 1. Atrial fibrillation with RVR 2. Alcohol abuse 3. Hypertension, hyperlipidemia prediabetes 4. Noncompliance From a cardiovascular standpoint patient an echocardiogram that revealed normal EF. i will increase pt beta blockers Patient had EGD today , wiill reinstitute patient's anticoagulation after as he has a high [id number] score once cleared with GI Will follow-up tomorrow DERRICK LEROY PAC Jun 17, 2024 22:19
[2024-06-18 03:19] VITALS: BP 125/87; PULSE 80; RESP 18; TEMP 97.9
[2024-06-18 03:27] LABS: HEMATOCRIT 38.1 % (42-54); MEAN CORPUSCULAR HEMOGLOBIN 34.3 pg (27.0-33.0); MEAN CORPUSCULAR HGB CONC 35.7 g/dL (32.0-36.0); MEAN CORPUSCULAR VOLUME 96.2 fL (79-99); RED BLOOD CELL COUNT(AUTO) 3.96 MIL/uL (4.50-6.20); RED CELL DISTRIBUTION WIDTH 12.5 % (11.0-15.5); WHITE BLOOD COUNT (AUTO) 6.3 K/uL (4.8-10.8)
[2024-06-18 03:46] LABS: ALBUMIN 2.4 g/dL (3.5-5.0); BILIRUBIN,TOTAL 1.2 mg/dL (0.2-1.0); CREATININE 0.9 mg/dL (0.5-1.3); MAGNESIUM 1.8 mg/dL (1.80-2.40); TOTAL PROTEIN, SERUM 5.6 g/dL (6.0-8.3)
[2024-06-18 08:11] VITALS: BP 133/92; PULSE 87; RESP 16; TEMP 98.7
[2024-06-18] MEDS: metoPROLOL tartRATE 25 MG TAB PO SCH (08:59)
[2024-06-18] MEDS: PANTOPrazole 40 MG TAB DR PO SCH (09:00)
[2024-06-18 09:54] VITALS: O2SAT 97
[2024-06-18 12:39] VITALS: BP 119/73; PULSE 85; RESP 16; TEMP 98.2
[2024-06-18] MEDS ORDERED: PANT40TA PO (15:00)
[2024-06-18] MEDS ORDERED: METO25 PO (15:00)
--- NOTE | 2024-06-18 15:53 | NUR ---
SUBSTANCE ABUSE RESOURCES Pt is self pay and requesting rehab placement. Pt sttes he has been in rehab before that was arranged by probation. Sw provide substance abuse resources and educated on [facility] program thru [facility] to assist with placement for non funded pts. Pt to call [facility] and complete intake for possible assist with placement. Pt voiced understanding and willingness to do.
== END 2024-06-18 15:35 | disposition home or self-care (01) | DRG 309 ==
LOC: EDH 11:13 → EDBD 11:14 → EDHIP 11:14 → 2AH 20:51
PROVIDERS: ADMIT Internal Medicine; ATTEND Internal Medicine
PROC: 0DB98ZX Excision of Duodenum, Via Natural or Artificial Opening Endoscopic, Diagnostic (ICD-10-PCS; principal; 2024-06-17)
PROC: 0DB78ZX Excision of Stomach, Pylorus, Via Natural or Artificial Opening Endoscopic, Diagnostic (ICD-10-PCS; 2024-06-17)
PROC: 0DB58ZX Excision of Esophagus, Via Natural or Artificial Opening Endoscopic, Diagnostic (ICD-10-PCS; 2024-06-17)
DX: I48.91 Unspecified atrial fibrillation (principal); F10.239 Alcohol dependence with withdrawal, unspecified; K92.0 Hematemesis; K92.1 Melena; E86.0 Dehydration; E83.42 Hypomagnesemia; K74.60 Unspecified cirrhosis of liver; I10 Essential (primary) hypertension; K31.89 Other diseases of stomach and duodenum; E11.9 Type 2 diabetes mellitus without complications; K21.00 Gastro-esophageal reflux disease with esophagitis, without bleeding; E78.00 Pure hypercholesterolemia, unspecified; F31.9 Bipolar disorder, unspecified; F20.9 Schizophrenia, unspecified; F14.10 Cocaine abuse, uncomplicated; K80.20 Calculus of gallbladder without cholecystitis without obstruction; F12.10 Cannabis abuse, uncomplicated; R31.9 Hematuria, unspecified; F19.10 Other psychoactive substance abuse, uncomplicated; F41.9 Anxiety disorder, unspecified; Z91.199 Patient's noncompliance with other medical treatment and regimen due to unspecified reason; Z83.3 Family history of diabetes mellitus; Z82.49 Family history of ischemic heart disease and other diseases of the circulatory system; Z80.0 Family history of malignant neoplasm of digestive organs; Z79.01 Long term (current) use of anticoagulants
CPT/HCPCS: 36415; 43239; 71045; 76705; 80048; 80053; 80076; 80305; 81001; 82105; 82140; 83036; 83735; 83880; 84443; 84484; 85014; 85018; 85025; 85027; 85610; 85730; 86701; 86803; 86850; 86900; 86901; 87390; 93005; 93306; 96375; 96376; 99285; G0378; J0696; J2003; J2060; J2250; J2354; J2470; J2704; J3411; J3475; J3480; J3490; J7030; J7050; A4215; A4222; A4223; A4620

== ENCOUNTER 2024-10-11 07:37 | Emergency (ER) | payer SELFPAY ==
[~2024-10-11] VITALS: Ht 175.3 cm; Wt 87.5 kg
[~2024-10-11 07:37] MED LIST changes: -AZIT250T9 PO; -BROM237S PO; -CHLO25CA6 PO; -IBUP-2070 PO; -IBUP-2071 PO; -IBUP-2077 PO; +METO25 PO; +PANT40TA PO; -PSEU120T62 PO
--- NOTE | 2024-10-11 07:55 | ERN ---
General Chief Complaint: Chest Pain Stated Complaint: CHEST PAIN Time Seen by MD: 07:46 History of Present Illness Initial Comments 34-year-old male who presents for chest discomfort, headache, elevated blood pressure readings at home. Patient has a history of hypertension. He was a distant history of alcohol and drug abuse, he has been sober for a few months now. He normally takes lisinopril for hypertension, but he ran out of his medication few weeks ago. Over the last few days he has had a headache and some sharp chest pain in the left side of the chest, nonexertional, nonradiating. He took his blood pressure at home and it was 170/130. No stroke symptoms. Allergies: Coded Allergies: No Known Allergies (Unverified Allergy, Unknown, 12/12/18) Home Meds Active Scripts Pantoprazole Sodium (Protonix) 40 Mg Tablet.dr, 40 MG PO DAILY, #30 TAB 0 Refi lls Prov:QUENTIN SNELL MD 06/18/24 Metoprolol Tartrate (Lopressor) 25 Mg Tab, 25 MG PO BID, #60 TAB 0 Refills Prov:QUENTIN SNELL MD 06/18/24 Benzonatate (Tessalon Perles) 100 Mg Cap, 100 MG PO TID for cough, #30 CAP 0 Refills Prov:BRAYAN GILMAN MD 07/30/22 Buspirone HCl (Buspar) 15 Mg Tab, 5 MG PO BID for 10 Days, #20 TAB Prov:ELVA FELIX MD 02/23/22 Diphenhydra/Phenyleph/Acetamin (Theraflu Severe Cold & Cough) 1 Each Powd.pack, 1 EACH PO QIDP, #20 PACK Prov:MICHELLE SONG 01/30/22 Cyclobenzaprine HCl (Flexeril) 10 Mg Tab, 10 MG PO TID for 10 Days, #30 TAB Prov:EMMIE CEDENO MD 12/21/21 Lisinopril (Lisinopril) 10 Mg Tablet, 1 TAB PO DAILY for 90 Days, #90 TAB 0 Refills Prov:SISSY LU MD 11/03/21 Albuterol Sulfate (Proair Hfa) 8.5 Gm Hfa.aer.ad, 8.5 GM IH Q4H for 5 Days, #1 INHALER Prov:MIRANDA FARRAR JOS 07/07/21 Past Medical History Past Medical History: A-Fib, Hypertension Medical History Other: Atrial fibrillation, GALLBLADDER ISSUES Past Surgical History: None Family History Family History: Negative Social History Social History: Drugs, ETOH, Lives with family ROS Dictation CONSTITUTIONAL: No chills, no fever, no weakness, no diaphoresis, no malaise. HEAD/FACE: No signs of trauma. EENT: No eye pain, no blurred vision, no tearing, no double vision, no ear pain, no ear discharge, no nose pain, no nasal congestion, no throat pain, no throat swelling, no mouth pain. RESPIRATORY: No cough, no orthopnea, no SOB, no stridor, no wheezing. CARDIOVASCULAR: Chest pain GASTROINTESTINAL/ABDOMINAL: No abdominal pain, no constipation, no diarrhea, no nausea, no vomiting. GENITOURINARY: No abnormal discharge, no dysuria, no frequent urination, no hematuria. No complaints of pain in the genitals. MUSCULOSKELETAL: No back pain, no gout, no joint pain, no joint swelling, no muscle pain, no muscle stiffness, no neck pain. INTEGUMENTARY: No change in color, no change in hair/nails, no dryness, no lesion, no lumps, no rash. NEUROLOGICAL/PSYCH: Headache HEMATOLOGIC/LYMPHATIC: Not anemic, no history of blood clots, no apparent bleeding, no bruising, glands not swollen. All Systems Negative, Except as Noted. Physical Exam Physical Exam Dictation VITAL SIGNS: Reviewed. GENERAL APPEARANCE: Alert, oriented x3, no acute distress. HEAD AND FACE: Non-traumatic. EYES: PERRL, pink conjunctivas, eyelid no trauma, anterior chamber clear. EARS: Pinnas intact and no signs of trauma or erythema. Ear canals clear and no discharge. TMs no erythema. NOSE: No discharge, no bleeding. OROPHARYNX: Mouth normal, teeth no caries, tongue pink. Pharynx clear, no erythema. Tonsils no exudates, no abscesses noted. Mucous membrane moist. NECK: Supple, non-tender, no thyromegaly, no masses, no JVD, no bruits. BREAST: Deferred. CHEST: No tenderness, no crepitus, no paradoxical movement, no retractions. LUNGS: Clear, well-ventilated, symmetric, no rales, no wheezing, no rhonchi, no stridor, good breath sounds bilaterally. HEART: Regular rate, regular rhythm, no murmur, no gallops. VASCULAR: No peripheral edema. ABDOMEN: Soft, positive bowel sounds, nondistended, no guarding, nontender, no rebound, no masses no hepatomegaly, no splenomegaly, no Rich's sign, no hernias. RECTAL: Deferred. GENITAL: Deferred. NEUROLOGICAL: Normal speech, gross motor function intact, gross sensory function intact. MUSCULOSKELETAL: Neck nontender, full range of motion, back nontender, full range of motion. EXTREMITIES: Nontender, full range of motion. SKIN: Color pink, dry, no turgor, no rash, no lacerations, no abrasions, no contusions. LYMPHATICS: Deferred. Results Laboratory and Microbiology Lab and Micro Result Laboratory Tests Test 10/11/24 07:53 White Blood Count 7.3 K/uL (4.8-10.8) Red Blood Count 4.02 MIL/uL (4.50-6.20) L Hemoglobin 13.5 g/dL (14.0-18.0) L Hematocrit 38.9 % (42-54) L Mean Corpuscular Volume 96.8 fL (79-99) Mean Corpuscular Hemoglobin 33.6 pg (27.0-33.0) H Mean Corpuscular Hemoglobin Concent 34.7 g/dL (32.0-36.0) Red Cell Distribution Width 12.4 % (11.0-15.5) Platelet Count 299 K/uL (130-400) Mean Platelet Volume 9.5 fL (7.5-10.5) Immature Granulocyte % (Auto) 1.0 % (0-1) Neutrophils (%) (Auto) 62.2 % (40.0-77.0) Lymphocytes (%) (Auto) 26.3 % (21.0-51.0) Monocytes (%) (Auto) 6.7 % (3.0-13.0) Eosinophils (%) (Auto) 3.0 % (0.0-8.0) Basophils (%) (Auto) 0.8 % (0.0-5.0) Neutrophils # (Auto) 4.5 K/uL (1.8-7.7) Lymphocytes # (Auto) 1.9 K/uL (1.0-4.8) Monocytes # (Auto) 0.5 K/uL (0.1-1.0) Eosinophils # (Auto) 0.22 K/uL (0.00-0.70) Basophils # (Auto) 0.06 K/uL (0.00-0.20) Absolute Immature Granulocyte (auto 0.07 K/uL (0-1) Nucleated Red Blood Cells 0.0 % (0.0-0.19) Sodium Level 139 mmol/L (136-145) Potassium Level 3.5 mmol/L (3.5-5.1) Chloride Level 106 mmol/L (101-111) Carbon Dioxide Level 27 mmol/L (21-32) Blood Urea Nitrogen 6 mg/dL (7-18) L Creatinine 0.9 mg/dL (0.5-1.3) Glomerular Filtration Rate Calc 114 mL/min (>90) Random Glucose 117 mg/dL (70-105) H Total Calcium 8.5 mg/dL (8.5-10.1) Total Creatine Kinase 45 U/L (21-232) # Troponin I High Sensitivity < 4 ng/L (4-75) L B-Type Natriuretic Peptide 31 pg/mL (0-100) MDM CC: Chest pain, headache, hypertension Historian: Patient Comorbidities: Hypertension, distant history of drug and alcohol abuse Limitations by social determinants of health: Uninsured Differential diagnosis: Stroke, cardiac disease, hypertension, other. EKG: Normal sinus rhythm, rate of 88, normal axis, good R-wave progression, intervals are stable no STEMI. Clinical exam: Cranial nerves are intact, NIHSS of 0. No signs of stroke. Vital signs: Blood pressure 172/126, otherwise stable Labs (independently interpreted by me ): Normal CBC, normal metabolic panel, CK normal, troponin normal, BNP normal CXR ( independently interpreted by me ): No cardiomegaly, no focal infiltrates, no pleural effusions. Patient was heart score of one. He has been having the pain for a couple of days so one troponin indicated. Treatment in ED: Oral clonidine Re-evaluation: Blood pressure improved. Symptoms have subsided. Plan: We will DC with a prescription for lisinopril. Recommend PCP follow up. ED Course Orders Procedure Category Date Status Time Cbc With Differential LAB 10/11/24 Complete 07:47 B-Type Natriuretic LAB 10/11/24 Complete Peptide 07:47 Chest 1vw RAD 10/11/24 Taken 07:47 12 Lead Ekg Tracing- EKG 10/11/24 Logged Technical 07:47 Creatine Kinase, Total LAB 10/11/24 Complete 07:47 Troponin I High LAB 10/11/24 Complete Sensitivity 07:47 Basic Metabolic Panel LAB 10/11/24 Complete 07:47 Clonidine Hcl 0.2 Mg PHA 10/11/24 Complete Tablet (Catapres 0. 08:00 Current Medications Medications (Trade) Dose Ordered Sig/Dolores Route PRN Reason Start Time Stop Time Status Last Admin Dose Admin Clonidine HCl (CATApres 0.2 MG TAB) 0.2 mg ONCE ONCE PO 10/11/24 08:00 10/11/24 08:01 DC 10/11/24 08:00 Vital Signs Date Time Temp Pulse Resp B/P (MAP) Pulse Ox O2 Delivery O2 Flow Rate FiO2 10/11/24 08:32 152/113 Room Air* 0 21 10/11/24 08:00 92 169/114 10/11/24 07:56 88 20 169/114 98 Room Air* 0 21 10/11/24 07:38 97.9 93 20 172/126 100 Room Air 0 DX & DISP Disposition: Discharge Departure Impression: Primary Impression: Uncontrolled hypertension Condition: Stable Scripts Lisinopril (Lisinopril) 20 Mg Tablet 1 TAB PO DAILY for 90 Days, #90 TAB 0 Refills Prov: CHERYL VOGT DO 10/11/24 Additional Instructions: Your symptoms are consistent with hypertension. You EKGs normal. Your chest x-ray is normal. Your blood work is normal. I have prescribed lisinopril, which is a blood pressure medicine. Please take this once per day. Please follow up with your primary doctor for further evaluation and treatment of your high blood pressure. Return to the emergency department as needed. Referrals: NONE (PCP) CHERYL OVGT DO Oct 11, 2024 07:55
[2024-10-11] MEDS: cloNIDine HCL 0.2 MG TABLET PO ONE (08:00)
[2024-10-11 08:04] LABS: BASOPHILS # (AUTO) 0.06 K/uL (0.00-0.20); BASOPHILS % (AUTO) 0.8 % (0.0-5.0); EOSINOPHILS # (AUTO) 0.22 K/uL (0.00-0.70); HEMATOCRIT 38.9 % (42-54); IMMATURE GRANULOCYTE ABSOLUTE 0.07 K/uL (0-1); LYMPHOCYTES # (AUTO) 1.9 K/uL (1.0-4.8); LYMPHOCYTES % (AUTO) 26.3 % (21.0-51.0); MEAN CORPUSCULAR HEMOGLOBIN 33.6 pg (27.0-33.0); MEAN CORPUSCULAR HGB CONC 34.7 g/dL (32.0-36.0); MEAN CORPUSCULAR VOLUME 96.8 fL (79-99); MONOCYTES # (AUTO) 0.5 K/uL (0.1-1.0); MONOCYTES % (AUTO) 6.7 % (3.0-13.0); NEUTROPHILS # (AUTO) 4.5 K/uL (1.8-7.7); NEUTROPHILS % (AUTO) 62.2 % (40.0-77.0); PLATELET COUNT (AUTO) 299 K/uL (130-400); RED BLOOD CELL COUNT(AUTO) 4.02 MIL/uL (4.50-6.20); RED CELL DISTRIBUTION WIDTH 12.4 % (11.0-15.5); WHITE BLOOD COUNT (AUTO) 7.3 K/uL (4.8-10.8)
[2024-10-11 08:18] LABS: CREATININE 0.9 mg/dL (0.5-1.3); POTASSIUM 3.5 mmol/L (3.5-5.1)
[2024-10-11 08:29] LABS: B-TYPE NATRIURETIC PEPTIDE 31 pg/mL (0-100)
[2024-10-11] MEDS ORDERED: LISI20TA24 PO (08:48)
[2024-10-11 08:56] VITALS: BP 150/100; PULSE 84; RESP 14; TEMP 97.9; O2SAT 99
--- NOTE | 2024-10-11 09:23 | HMCIMG ---
CHEST 1VW HISTORY: Chest pain COMPARISON: 06/14/2024 FINDINGS: A frontal projection of the chest was obtained. Prominent interstitial markings are seen. The heart is normal in size. Degenerative changes are seen. No evidence of aortic calcification is seen. IMPRESSION: 1. Prominent interstitial markings.
--- NOTE | 2024-10-12 15:55 | EKG ---
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
== END 2024-10-11 08:59 | disposition home or self-care (01) ==
LOC: EDH 07:37
DX: I10 Essential (primary) hypertension (principal); R51.9 Headache, unspecified; R07.89 Other chest pain; I48.91 Unspecified atrial fibrillation; Z79.899 Other long term (current) drug therapy
CPT/HCPCS: 36415; 71045; 80048; 82550; 83880; 84484; 85025; 93005; 99285

== ENCOUNTER 2024-11-24 10:04 | Emergency (ER) | payer SELFPAY ==
[~2024-11-24] VITALS: Ht 175.3 cm; Wt 88.5 kg
[~2024-11-24 10:04] MED LIST changes: +LISI20TA24 PO
[2024-11-24 10:32] LABS: RAPID GROUP A STREP negative (NEGATIVE)
[2024-11-24 10:36] LABS: SARS-CoV-2, RNA, NAAT NEGATIVE SARS CoV-2 (NEGATIVE)
[2024-11-24 10:42] LABS: INFLUENZA TYPE A Negative For Type A (NEGATIVE); INFLUENZA TYPE B Negative For Type B (NEGATIVE)
--- NOTE | 2024-11-24 11:01 | HMCIMG ---
PA AND LATERAL CHEST RADIOGRAPH INDICATION: Cough COMPARISON: 10/11/2024 FINDINGS: Heart size is normal. The pulmonary vascularity and elena appear normal. No abnormal pulmonary parenchymal opacity or consolidation identified. No significant pleural effusion noted. No pneumothorax detected. IMPRESSION: No radiographic evidence for any acute cardiopulmonary process.
[2024-11-24] MEDS: dexaMETHasone SOD PHOSPHATE 4 MG/ML 1ML VIAL IM ONE (11:11)
--- NOTE | 2024-11-24 11:18 | ERN ---
ED Note History of Present Illness Stated Complaint: COUGH AND CHEST CONGESTION Chief Complaint: Congestion Time Seen by MD: 10:16 Time Seen by Midlevel: 10:17 Dictation: 34-year-old male presents to the emergency department due to report of having chills, runny nose, sore throat in the nonproductive cough that began four days ago. He states that he does not have a confirmed fever but believes his at he has one. There is no report of having had contact with anybody with similar symptoms. Upon initial evaluation, the patient presents in no acute respiratory distress. 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 Home Meds Active Scripts Lisinopril (Lisinopril) 20 Mg Tablet, 1 TAB PO DAILY for 90 Days, #90 TAB 0 Refills Prov:CHERYL VOGT DO 10/11/24 Pantoprazole Sodium (Protonix) 40 Mg Tablet.dr, 40 MG PO DAILY, #30 TAB 0 Refills Prov:QUENTIN SNELL MD 06/18/24 Metoprolol Tartrate (Lopressor) 25 Mg Tab, 25 MG PO BID, #60 TAB 0 Refills Prov:QUENTIN SNELL MD 06/18/24 Benzonatate (Tessalon Perles) 100 Mg Cap, 100 MG PO TID for cough, #30 CAP 0 Refills Prov:BRAYAN GILMAN MD 07/30/22 Buspirone HCl (Buspar) 15 Mg Tab, 5 MG PO BID for 10 Days, #20 TAB Prov:ELVA FELIX MD 02/23/22 Diphenhydra/Phenyleph/Acetamin (Theraflu Severe Cold & Cough) 1 Each Powd.pack, 1 EACH PO QIDP, #20 PACK Prov:MICHELLE SONG 01/30/22 Cyclobenzaprine HCl (Flexeril) 10 Mg Tab, 10 MG PO TID for 10 Days, #30 TAB Prov:EMMIE CEDENO MD 12/21/21 Lisinopril (Lisinopril) 10 Mg Tablet, 1 TAB PO DAILY for 90 Days, #90 TAB 0 Refills Prov:SISSY LU MD 11/03/21 Albuterol Sulfate (Proair Hfa) 8.5 Gm Hfa.aer.ad, 8.5 GM IH Q4H for 5 Days, #1 INHALER Prov:MIRANDA FARRAR 07/07/21 Past Medical History Past Medical History: A-Fib, Hypertension Additional Past Medical Hx: Atrial fibrillation, GALLBLADDER ISSUES Surgical History: None Family History: Negative Social History: Drugs, ETOH, Lives with family Review of System Dictation Constitutional: Chills, fever Eyes: Negative for injury, pain,redness, and discharge ENT: Runny nose, sore throat Cardiovascular: Negative for chest pain, palpitations, and edema Respiratory: Nonproductive cough Abdomen/GI: Negative for abdominal pain, nausea, vomiting, diarrhea, and constipation Back: Negative for injury and pain : Negative for injury, bleeding and discharge MS/Extremity: Negative for injury and deformity Skin: Negative for rash, and discoloration Neuro: Negative for headache, weakness, numbness, tingling, and seizure Psych: Negative for suicide ideation, homicidal ideation, and hallucinations Initial Vital Sign VS Vital Signs Date Time Temp Pulse Resp B/P (MAP) Pulse Ox O2 Delivery O2 Flow Rate FiO2 11/24/24 10:05 98.2 18 18 140/97 98 Room Air* 0 21 Physical Exam Dictation GENERAL: AWAKE, ALERT, NAD HEAD/FACE: NORMOCEPHALIC, ATRAUMATIC EYES: PERRL, EOMI, VISION AT BASELINE ENT: BILATERAL NASAL CONGESTION, WHO RESUME HIS PHARYNX NECK: TRACHEA MIDLINE, SUPPLE, NO NUCHAL RIGIDITY CARDIOVASCULAR: RRR, NORMAL S1/S2, NO MRGS, NO JVD RESPIRATORY: SYMMETRICAL, NONLABORED, SCATTERED RHONCHI. ABDOMEN: SOFT, NON-TENDER, NON-DISTENDED, NORMAL BOWEL SOUNDS, NO GUARDING OR REBOUND. SKIN: WARM, DRY, NORMAL TURGOR, NO RASH MS/EXTREMITY: PULSES EQUAL, NO CYANOSIS, NEUROVASCULAR INTACT, FROM NEURO: COAX4, GCS 15, STRENGTH 5/5, CN 2-12 INTACT, NORMAL CEREBELLAR EXAM, NORMAL GAIT, PSYCH: NORMAL BEHAVIOR, MOOD, AND AFFECT NORMAL Results (Laboratory/Radiology) Laboratory/Radiology Laboratory Tests Test 11/24/24 10:08 Influenza Type A Antigen Negative For Type A Influenza Type B Antigen Negative For Type B SARS-CoV-2, RNA, NAAT NEGATIVE SARS CoV-2 Group A Streptococcus Rapid negative (NEGATIVE) Labs Reviewed?: Yes X-RAY Comment: CHEST X-RAY TWO VIEWS WITH NO INFILTRATES INTERPRETED BY ME. ED Course ED Course Orders Procedure Category Date Status Time Influenza Type A & B, LAB 11/24/24 Complete Rapid 10:16 Rapid (Group A Strep) LAB 11/24/24 Complete 10:16 Covid Rna Naat LAB 11/24/24 Complete 10:16 Chest 2vws RAD 11/24/24 Resulted 10:27 Albuterol 0.083% PHA 11/24/24 Complete 2.5mg/3ml (Proventil 11:30 Ipratropium 0.5 PHA 11/24/24 Complete Mg/2.5 Ml Inh 11:30 Dexamethasone 4mg/Ml PHA 11/24/24 Complete 1ml Vial (Dexametha 11:30 Current Medications Medications (Trade) Dose Ordered Sig/Dolores Route PRN Reason Start Time Stop Time Status Last Admin Dose Admin Albuterol Sulfate (Proventil 0.083% 2.5mg/3ml) 2.5MG ONCE ONCE IH 11/24/24 11:30 11/24/24 11:31 DC 11/24/24 12:24 Dexamethasone Sodium Phosphate (dexaMETHasone 4MG/ML 1ML VIAL) 8 mg ONCE ONCE IM 11/24/24 11:30 11/24/24 11:31 DC 11/24/24 11:11 Ipratropium [place] (AtrovENT UD) 0.5 MG ONCE ONCE IH 11/24/24 11:30 11/24/24 11:31 DC 11/24/24 12:24 Vital Signs Date Time Temp Pulse Resp B/P (MAP) Pulse Ox O2 Delivery O2 Flow Rate FiO2 11/24/24 12:46 99.0 92 17 136/99 97 Room Air* 0 21 11/24/24 12:26 90 18 11/24/24 11:38 97.9 86 18 131/97 97 Room Air* 0 21 11/24/24 10:05 98.2 97 18 140/97 98 Room Air 11/24/24 10:05 98.2 18 18 140/97 98 Room Air* 0 21 Medical Decision Making MDM MDM: Differential diagnosis: Acute bronchitis, viral illness, pneumonia. Rationale: Tests considered and ordered secondary to shared decision making include: Influenza, COVID, chest x-ray two views. Previous outside records reviewed: Old ER visits. Risk of complication and/or morbidity or mortality of patient management: None Medications-Per medication reconciliation Need for hospitalization: Patient does not meet criteria for hospitalization. Need for emergency major/minor surgery: No There are no social concerns with this patient. Prescription drug management Prescriptions will include symptomatic care Patient's prior external medical records from other ER visits were reviewed by me as indicated. Prior testing and results from previous visits were reviewed. Prior tests were taken into account with medical decision making and resource utilization, independent historian/historians were used to obtain complete medical history. I independently interpreted the test that were performed, results were reviewed by me and considered findings on radiology if ordered. Medical management and examination interpretation discussions were had by me with other qualified healthcare professionals as indicated for the patient's care. DX & DISP Disposition: Discharge Departure Impression: Primary Impression: Acute bronchitis Condition: Stable Scripts Albuterol Sulfate (Ventolin Hfa/Proventil Hfa/Proair Hfa) 90 Mcg Puff 2 PUFF IH Q4H PRN for SHORTNESS OF BREATH/WHEEZING for 30 Days, #1 INH 0 Refills Prov: ANDREW CASTANEDA 11/24/24 Prednisone (Prednisone) 20 Mg Tablet 2 TAB PO AD for 3 Days, #6 TAB 0 Refills TAKE 1 TAB BY MOUTH THREE TIMES PER DAY X3 DAYS, THEN TAKE 1 TAB BY MOUTH TWICE A DAY X2 DAYS, THEN TAKE 1 TAB BY MOUTH ONCE A DAY X1 DAY. Prov: ANDREW CASTANEDA 11/24/24 Referrals: MARS WOLFE (PCP) ANDREW CASTANEDA November 24, 2024 11:18
[2024-11-24] MEDS: IpraTROPium 0.5 MG/2.5 ML INH IH ONE (12:24)
[2024-11-24] MEDS: ALBUTEROL 0.083% 2.5 MG/3 ML INH IH ONE (12:24)
[2024-11-24 12:26] VITALS: PULSE 90; RESP 18
[2024-11-24 12:46] VITALS: BP 136/99; PULSE 92; RESP 17; TEMP 98.9; O2SAT 97
[2024-11-24] MEDS ORDERED: ALBUHFA IH (13:05)
[2024-11-24] MEDS ORDERED: PRED20TA3 PO (13:05)
== END 2024-11-24 13:25 | disposition home or self-care (01) ==
LOC: EDH 10:04
DX: J20.9 Acute bronchitis, unspecified (principal); I48.91 Unspecified atrial fibrillation; I10 Essential (primary) hypertension; Z79.899 Other long term (current) drug therapy; Z20.822 Contact with and (suspected) exposure to COVID-19
CPT/HCPCS: 99284; 71046; 87635; 87880; 87804 ×2; 96372; 94640; J1100

== ENCOUNTER 2025-01-07 06:39 | Emergency (ER) | payer SELFPAY ==
[~2025-01-07] VITALS: Ht 175.3 cm; Wt 90.7 kg
[~2025-01-07 06:39] MED LIST changes: +ALBUHFA IH; +PRED20TA3 PO
[2025-01-07 06:43] VITALS: BP 152/101; PULSE 75; RESP 16; TEMP 97.3
[2025-01-07] MEDS ORDERED: METH-662 PO (06:57)
[2025-01-07] MEDS ORDERED: NAPR-1194 PO (06:57)
--- NOTE | 2025-01-07 06:57 | ERN ---
General Chief Complaint: Knee Injury/Swelling Stated Complaint: LEFT KNEE PAIN Time Seen by MD: 06:47 Source: patient History of Present Illness Initial Comments Patient is a 34-year-old male coming in to be evaluated for left knee pain. Per patient he has has been ambulating in his believes he might have twisted his knee. Does not report any trauma. Allergies: Coded Allergies: No Known Allergies (Unverified Allergy, Unknown, 12/12/18) Home Meds Active Scripts Albuterol Sulfate (Ventolin Hfa/Proventil Hfa/Proair Hfa) 90 Mcg Puff, 2 PUFF IH Q4H PRN for SHORTNESS OF BREATH/WHEEZING for 30 Days, #1 INH 0 Refills Prov:ANDREW CASTANEDA 11/24/24 Prednisone (Prednisone) 20 Mg Tablet, 2 TAB PO AD for 3 Days, #6 TAB 0 Refills TAKE 1 TAB BY MOUTH THREE TIMES PER DAY X3 DAYS, THEN TAKE 1 TAB BY MOUTH TWICE A DAY X2 DAYS, THEN TAKE 1 TAB BY MOUTH ONCE A DAY X1 DAY. Prov:ANDREW CASTANEDA 11/24/24 Lisinopril (Lisinopril) 20 Mg Tablet, 1 TAB PO DAILY for 90 Days, #90 TAB 0 Refills Prov:CHERYL VOGT DO 10/11/24 Pantoprazole Sodium (Protonix) 40 Mg Tablet.dr, 40 MG PO DAILY, #30 TAB 0 Refills Prov:QUENTIN SNELL MD 06/18/24 Metoprolol Tartrate (Lopressor) 25 Mg Tab, 25 MG PO BID, #60 TAB 0 Refills Prov:QUENTIN SNELL MD 06/18/24 Benzonatate (Tessalon Perles) 100 Mg Cap, 100 MG PO TID for cough, #30 CAP 0 Refills Prov:BRAYAN GILMAN MD 07/30/22 Buspirone HCl (Buspar) 15 Mg Tab, 5 MG PO BID for 10 Days, #20 TAB Prov:ELVA FELIX MD 02/23/22 Diphenhydra/Phenyleph/Acetamin (Theraflu Severe Cold & Cough) 1 Each Powd.pack, 1 EACH PO QIDP, #20 PACK Prov:MICHELLE SONG 01/30/22 Cyclobenzaprine HCl (Flexeril) 10 Mg Tab, 10 MG PO TID for 10 Days, #30 TAB Prov:EMMIE CEDENO MD 12/21/21 Lisinopril (Lisinopril) 10 Mg Tablet, 1 TAB PO DAILY for 90 Days, #90 TAB 0 Refills Prov:SISSY LU MD 11/03/21 Albuterol Sulfate (Proair Hfa) 8.5 Gm Hfa.aer.ad, 8.5 GM IH Q4H for 5 Days, #1 INHALER Prov:MIRANDA FARRAR 07/07/21 Past Medical History Past Medical History: A-Fib, Hypertension Medical History Other: Atrial fibrillation, GALLBLADDER ISSUES Past Surgical History: None Family History Family History: Negative Social History Social History: Drugs, ETOH, Lives with family ROS Dictation CONSTITUTIONAL: No chills, no fever, no weakness, no diaphoresis, no malaise. HEAD/FACE: No signs of trauma. EENT: No eye pain, no blurred vision, no tearing, no double vision, no ear pain, no ear discharge, no nose pain, no nasal congestion, no throat pain, no throat swelling, no mouth pain. RESPIRATORY: No cough, no orthopnea, no SOB, no stridor, no wheezing. CARDIOVASCULAR: No chest pain, no edema, no palpitations, no syncope. GASTROINTESTINAL/ABDOMINAL: No abdominal pain, no constipation, no diarrhea, no nausea, no vomiting. GENITOURINARY: No abnormal discharge, no dysuria, no frequent urination, no hematuria. No complaints of pain in the genitals. MUSCULOSKELETAL: No back pain, no gout, joint pain, no joint swelling, muscle pain, no muscle stiffness, no neck pain. INTEGUMENTARY: No change in color, no change in hair/nails, no dryness, no lesion, no lumps, no rash. NEUROLOGICAL/PSYCH: No anxiety, not depressed, no emotional problem, no headache, no numbness, no pre-existing deficit, no history of seizures, no tremors, no weakness. HEMATOLOGIC/LYMPHATIC: Not anemic, no history of blood clots, no apparent bleeding, no bruising, glands not swollen. All Systems Negative, Except as Noted. Physical Exam Physical Exam Dictation VITAL SIGNS: Reviewed. GENERAL APPEARANCE: Alert, oriented x3, no acute distress, obese. HEAD AND FACE: Non-traumatic. EYES: PERRL, pink conjunctivas, eyelid no trauma, anterior chamber clear. EARS: Pinnas intact and no signs of trauma or erythema. Ear canals clear and no discharge. TMs no erythema. NOSE: No discharge, no bleeding. OROPHARYNX: Mouth normal, teeth no caries, tongue pink. Pharynx clear, no erythema. Tonsils no exudates, no abscesses noted. Mucous membrane moist. NECK: Supple, non-tender, no thyromegaly, no masses, no JVD, no bruits. BREAST: Deferred. CHEST: No tenderness, no crepitus, no paradoxical movement, no retractions. LUNGS: Clear, well-ventilated, symmetric, no rales, no wheezing, no rhonchi, no stridor, good breath sounds bilaterally. HEART: Regular rate, regular rhythm, no murmur, no gallops. VASCULAR: No peripheral edema. ABDOMEN: Soft, positive bowel sounds, nondistended, no guarding, nontender, no rebound, no masses no hepatomegaly, no splenomegaly, no Rich's sign, no hernias. RECTAL: Deferred. GENITAL: Deferred. NEUROLOGICAL: Normal speech, gross motor function intact, gross sensory function intact. MUSCULOSKELETAL: Neck nontender, full range of motion, back nontender, full range of motion. EXTREMITIES: Nontender, full range of motion. Left knee discomfort on palpation SKIN: Color pink, dry, no turgor, no rash, no lacerations, no abrasions, no contusions. LYMPHATICS: Deferred. Results Laboratory and Microbiology Labs Reviewed?: Yes MDM MDM: Differential diagnosis: Strain, contusion, Rationale: Tests considered and ordered secondary to shared decision making include: Previous outside records reviewed: Old ER visits. Risk of complication and/or morbidity or mortality of patient management: None Medications-Per medication reconciliation Need for hospitalization: Patient does not meet criteria for hospitalization. Patient is a 74-year-old male coming in of left knee discomfort. Patient does state that he did not fall he believes he might have strained it. Knee immobilizer was placed and inflammatories antispasmodics were given. Patient will be discharged in stable condition I did advised him appropriate follow up with PCP in 1-2 days. ED Course Orders Procedure Category Date Status Time Orphenadrine Citrate PHA 01/07/25 In Process (Norflex) 07:00 Ketorolac PHA 01/07/25 In Process Tromethamine 30mg/Ml 07:00 Knee Immobilizer PARKER 01/07/25 In Process 06:48 Current Medications Medications (Trade) Dose Ordered Sig/Dolores Route PRN Reason Start Time Stop Time Status Last Admin Dose Admin Ketorolac Tromethamine (toRADol) 30 mg ONCE ONCE IM 01/07/25 07:00 01/07/25 07:01 Orphenadrine Citrate (Norflex) 60 mg ONCE ONCE IM 01/07/25 07:00 01/07/25 07:01 Vital Signs Date Time Temp Pulse Resp B/P (MAP) Pulse Ox O2 Delivery O2 Flow Rate FiO2 01/07/25 06:43 97.3 75 16 152/101 99 Room Air 0 DX & DISP Disposition: Discharge Departure Impression: Primary Impression: Knee strain Condition: Stable Scripts Methocarbamol (Robaxin) 750 Mg Tab 1 TAB PO BID for 5 Days, #10 TAB 0 Refills Prov: ELVA FELIX MD 01/07/25 Naproxen (Naproxen) 500 Mg Tablet 1 TAB PO BID for pain for 7 Days, #14 TAB 0 Refills Prov: ELVA FELIX MD 01/07/25 Additional Instructions: FOLLOW-UP WITH PRIMARY CARE PROVIDER IN 1 TO 2 DAYS. TAKE MEDICATIONS DIRECTED HERE IN THE EMERGENCY ROOM. OKAY TO CONTINUE HOME MEDICATIONS UNLESS OTHERWISE DISCUSSED DURING YOUR VISIT IN THE EMERGENCY ROOM TODAY. RETURN TO YOUR NEAREST EMERGENCY ROOM IF SYMPTOMS WORSEN OR IF THERE IS NO IMPROVEMENT. CALL 911 IF YOU NEED IMMEDIATE ASSISTANCE. TAKE TYLENOL [id number] NEEDED AND IF NO CONTRAINDICATIONS ARE PRESENT. INCREASE ORAL HYDRATION. A WOUND CULTURE OR URINE CULTURE WAS ORDERED HERE IN THE EMERGENCY ROOM DEPARTMENT PLEASE FOLLOW-UP WITH PRIMARY CARE PROVIDER AND ADVISE THEM TO GET REPORTS FROM OUR FACILITY. IF YOU HAD ANY LEONEL WRAP/SPLINTS THAT WERE APPLIED HERE, PLEASE DO NOT REMOVE THEM UNTIL YOU SEE YOUR PRIMARY CARE OR SPECIALTY. Referrals: Referrals: MARS WOLFE (PCP) Time of Disposition: 06:56 ELVA FELIX MD Jan 07, 2025 06:57
[2025-01-07] MEDS: ORPHENADRINE 60MG/2ML IM ONE (07:09)
[2025-01-07] MEDS: ketOROlac 30MG VIAL (30MG/ML) IM ONE (07:09)
== END 2025-01-07 07:16 | disposition home or self-care (01) ==
LOC: EDH 06:39
DX: S86.912A Strain of unspecified muscle(s) and tendon(s) at lower leg level, left leg, initial encounter (principal); I48.91 Unspecified atrial fibrillation; I10 Essential (primary) hypertension; Z79.899 Other long term (current) drug therapy; X50.1XXA Overexertion from prolonged static or awkward postures, initial encounter; Y93.89 Activity, other specified; Y92.89 Other specified places as the place of occurrence of the external cause; Y99.8 Other external cause status
CPT/HCPCS: 99284; 29505; 96372 ×2; J1885; J2360

== ENCOUNTER 2025-06-08 00:32 | Emergency (ER) | payer SELFPAY ==
[~2025-06-08] VITALS: Ht 175.3 cm; Wt 89.8 kg
[~2025-06-08 00:32] MED LIST changes: +METH-662 PO; +NAPR-1194 PO
[2025-06-08 00:52] LABS: IMMATURE GRANULOCYTE ABSOLUTE 0.04 K/uL (0-1); NUCLEATED RED BLOOD CELLS 0.0 % (0.0-0.19); PLATELET COUNT (AUTO) 200 K/uL (130-400); RED BLOOD CELL COUNT(AUTO) 5.55 MIL/uL (4.50-6.20); RED CELL DISTRIBUTION WIDTH 12.9 % (11.0-15.5); WHITE BLOOD COUNT (AUTO) 9.8 K/uL (4.8-10.8)
[2025-06-08 00:59] LABS: CREATININE 1.0 mg/dL (0.5-1.3); GLOMERULAR FILTR. RATE CALC 99.0 mL/min (>90); GLUCOSE,RANDOM 136.0 mg/dL (70-105); SODIUM SERUM 136.0 mmol/L (136-145); UREA NITROGEN, BLOOD 3.0 mg/dL (7-18)
[2025-06-08 01:04] LABS: CREATINE KINASE, TOTAL 301.0 U/L (21-232)
--- NOTE | 2025-06-08 02:19 | HMCIMG ---
EXAM: CR Chest, 1 view CLINICAL HISTORY: Chest pain. COMPARISON: 06/14/2024. FINDINGS: The lungs show no infiltrates or other acute findings. No pleural effusion or pneumothorax. The cardiomediastinal silhouette is within normal limits. No acute osseous abnormality. IMPRESSION: No acute cardiopulmonary process is evident. Compared to the prior study, there is no significant interval change. /[place]
--- NOTE | 2025-06-08 02:23 | NUR ---
Waldo castrejon in [facility] - 06/08/25 at 0225 by MINNA UA CUP PROVIDED
--- NOTE | 2025-06-08 02:24 | NUR ---
Waldo castrejon in [facility] - 06/08/25 at 0224 by MINNA REPORT TO SHEREE WOOD
--- NOTE | 2025-06-08 02:26 | ERN ---
ED Note History of Present Illness Stated Complaint: CP, LEFT FACIAL NUMBNESS, SHAKING Chief Complaint: Multiple Complaints Time Seen by MD: 00:40 Dictation: This is a 35-year-old male who presented to the emergency room with the his girlfriend with complaints of palpitations and feeling shaky. He also had some left facial numbness and he was hyperventilating when he came in. He was extremely rude using profanity and appeared extremely impatient. Patient indicated that he did cocaine and also at times uses Xanax bars. In review of more history patient was diagnosed with bipolar type 1 disorder and he was sober for over 6 months doing extremely well. However he relapsed and has not had any follow up with psychiatrist. During his sober time patient was taking Seroquel and PRN Xanax for agitation and anxiety. Patient stated that when his anxiety levels are extremely high, he reaches out to recreational drugs and alcohol which only makes things worse for him. Patient was extremely tearful during my evaluation. No headache blurred vision facial droop, diplopia motor weakness or seizure activity Temperature 98.3 pulse 118 respirations 20 blood pressure 148/95 with a pulse oximetry of 98% on room air Patient has chronic medical problems include history of atrial fibrillation, hypertension gallbladder issues, bipolar disorder and substance abuse. Allergies: Coded Allergies: No Known Allergies (Unverified Allergy, Unknown, 12/12/18) Home Meds Active Scripts Methocarbamol (Robaxin) 750 Mg Tab, 1 TAB PO BID for 5 Days, #10 TAB 0 Refills Prov:ELVA FELIX MD 01/07/25 Naproxen (Naproxen) 500 Mg Tablet, 1 TAB PO BID for pain for 7 Days, #14 TAB 0 Refills Prov:ELVA FELIX MD 01/07/25 Albuterol Sulfate (Ventolin Hfa/Proventil Hfa/Proair Hfa) 90 Mcg Puff, 2 PUFF IH Q4H PRN for SHORTNESS OF BREATH/WHEEZING for 30 Days, #1 INH 0 Refills Prov:ANDREW CASTANEDA 11/24/24 Prednisone (Prednisone) 20 Mg Tablet, 2 TAB PO AD for 3 Days, #6 TAB 0 Refills TAKE 1 TAB BY MOUTH THREE TIMES PER DAY X3 DAYS, THEN TAKE 1 TAB BY MOUTH TWICE A DAY X2 DAYS, THEN TAKE 1 TAB BY MOUTH ONCE A DAY X1 DAY. Prov:ANDREW CASTANEDA 11/24/24 Lisinopril (Lisinopril) 20 Mg Tablet, 1 TAB PO DAILY for 90 Days, #90 TAB 0 Refills Prov:CHERYL VOGT DO 10/11/24 Pantoprazole Sodium (Protonix) 40 Mg Tablet.dr, 40 MG PO DAILY, #30 TAB 0 Refills Prov:QUENTIN SNELL MD 06/18/24 Metoprolol Tartrate (Lopressor) 25 Mg Tab, 25 MG PO BID, #60 TAB 0 Refills Prov:QUENTIN SNELL MD 06/18/24 Benzonatate (Tessalon Perles) 100 Mg Cap, 100 MG PO TID for cough, #30 CAP 0 Refills Prov:BRAYAN GILMAN MD 07/30/22 Buspirone HCl (Buspar) 15 Mg Tab, 5 MG PO BID for 10 Days, #20 TAB Prov:ELVA FELIX MD 02/23/22 Diphenhydra/Phenyleph/Acetamin (Theraflu Severe Cold & Cough) 1 Each Powd.pack, 1 EACH PO QIDP, #20 PACK Prov:MICHELLE SONG 01/30/22 Cyclobenzaprine HCl (Flexeril) 10 Mg Tab, 10 MG PO TID for 10 Days, #30 TAB Prov:EMMIE CEDENO MD 12/21/21 Lisinopril (Lisinopril) 10 Mg Tablet, 1 TAB PO DAILY for 90 Days, #90 TAB 0 Refills Prov:SISSY LU MD 11/03/21 Albuterol Sulfate (Proair Hfa) 8.5 Gm Hfa.aer.ad, 8.5 GM IH Q4H for 5 Days, #1 INHALER Prov:MIRANDA FARRAR 07/07/21 Past Medical History Past Medical History: A-Fib, Hypertension Additional Past Medical Hx: GALLBLADDER ISSUES, NONE COMPLIANT WITH MEDICATIONS. Surgical History: None Family History: Negative Social History: Drugs, ETOH, Lives with family RN Note Reviewed/Agreed w/PFSH: Yes Review of System Dictation Constitutional: Negative for fever,chills, and weight loss Eyes: Negative for injury, pain,redness, and discharge ENT: Negative for injury,pain or swelling Cardiovascular: Positive for chest pain, palpitations, Respiratory: Negative for shortness of breath, cough, and wheezing, Abdomen/GI: Negative for abdominal pain, nausea, vomiting, diarrhea, and constipation Back: Negative for injury and pain : Negative for injury, bleeding and discharge MS/Extremity: Negative for injury and deformity Skin: Negative for rash, and discoloration Neuro: Negative for headache, weakness, tingling, and seizure positive for left-sided facial numbness tremulousness Psych: Negative for suicide ideation, homicidal ideation, and hallucinations positive for agitated behavior Initial Vital Sign VS Vital Signs Date Time Temp Pulse Resp B/P (MAP) Pulse Ox O2 Delivery O2 Flow Rate FiO2 06/08/25 00:33 98.2 118 20 148/95 99 Room Air 06/08/25 01:45 0 21 Physical Exam Dictation General: awake, alert, NAD extremely anxious and fidgety, tremulous Head/Face: Normocephalic, atraumatic Eyes: PERRL, EOMI, vision at baseline ENT: oral cavity clear, TMs clear, no signs of infection Neck: Trachea midline, supple, no nuchal rigidity Cardiovascular: RRR, normal S1/S2, No MRGs, no JVD Respiratory: CTAB, no respiratory distress, No rales or wheezes Abdomen: Soft, non-tender, non-distended, normal bowel sounds, no guarding or rebound. Skin: Warm, dry, normal turgor, no rash MS/Extremity: Pulses equal, no cyanosis, neurovascular intact, FROM Neuro: COAx4, GCS 15, strength 5/5, CN 2-12 intact, normal cerebellar exam, normal gait, Psych: Normal behavior, mood, and affect normal Extremities-trace edema without any palpable cords, Homans sign is negative Results (Laboratory/Radiology) Laboratory/Radiology Laboratory Tests Test 06/08/25 00:42 White Blood Count 9.8 K/uL (4.8-10.8) Red Blood Count 5.55 MIL/uL (4.50-6.20) Hemoglobin 17.0 g/dL (14.0-18.0) Hematocrit 46.5 % (42-54) Mean Corpuscular Volume 83.8 fL (79-99) Mean Corpuscular Hemoglobin 30.6 pg (27.0-33.0) Mean Corpuscular Hemoglobin Concent 36.6 g/dL (32.0-36.0) H Red Cell Distribution Width 12.9 % (11.0-15.5) Platelet Count 200 K/uL (130-400) Mean Platelet Volume 9.4 fL (7.5-10.5) Immature Granulocyte % (Auto) 0.4 % (0-1) Neutrophils (%) (Auto) 70.4 % (40.0-77.0) Lymphocytes (%) (Auto) 23.2 % (21.0-51.0) Monocytes (%) (Auto) 5.2 % (3.0-13.0) Eosinophils (%) (Auto) 0.6 % (0.0-8.0) Basophils (%) (Auto) 0.2 % (0.0-5.0) Neutrophils # (Auto) 6.9 K/uL (1.8-7.7) Lymphocytes # (Auto) 2.3 K/uL (1.0-4.8) Monocytes # (Auto) 0.5 K/uL (0.1-1.0) Eosinophils # (Auto) 0.06 K/uL (0.00-0.70) Basophils # (Auto) 0.02 K/uL (0.00-0.20) Absolute Immature Granulocyte (auto 0.04 K/uL (0-1) Nucleated Red Blood Cells 0.0 % (0.0-0.19) Red Blood Cell Morphology ANISO 1+ Sodium Level 136 mmol/L (136-145) Potassium Level 3.5 mmol/L (3.5-5.1) Chloride Level 97 mmol/L (101-111) L Carbon Dioxide Level 28 mmol/L (21-32) Blood Urea Nitrogen 3 mg/dL (7-18) L Creatinine 1.0 mg/dL (0.5-1.3) Glomerular Filtration Rate Calc 99 mL/min (>90) Random Glucose 136 mg/dL (70-105) H Total Calcium 8.2 mg/dL (8.5-10.1) L Total Creatine Kinase 301 U/L (21-232) #H Troponin I High Sensitivity 5 ng/L (4-75) Labs Reviewed?: Yes ED Course ED Course Orders Procedure Category Date Status Time Vital Signs Per CPOE 06/08/25 Transmitted Routine 00:34 Chest 1vw RAD 06/08/25 Resulted 00:34 12 Lead Ekg Tracing- EKG 06/08/25 Logged Technical 00:34 Oxygen By Nc/Pulse Ox CPOE 06/08/25 Transmitted 00:34 Maintain Iv CPOE 06/08/25 Transmitted 00:34 Iv Insertion CPOE 06/08/25 Transmitted 00:34 Cardiac Monitoring CPOE 06/08/25 Transmitted 00:34 Pulse Oximetry With CPOE 06/08/25 Transmitted Vs And Prn 00:34 Cbc With Differential LAB 06/08/25 Complete 00:34 Activity: Br W/Brp CPOE 06/08/25 Transmitted With Assist 00:34 Creatine Kinase, Total LAB 06/08/25 Complete 00:34 Troponin I High LAB 06/08/25 Complete Sensitivity 00:34 Urinalysis Profile LAB 06/08/25 Logged 00:34 Basic Metabolic Panel LAB 06/08/25 Complete 00:34 Drug Screen Urine LAB 06/08/25 Logged 01:35 Lorazepam 1 Mg PHA 06/08/25 Complete (Ativan) 02:00 0.9%Nacl 1000ml (Ns PHA 06/08/25 Complete 1000ml) 03:00 Lorazepam 2 Mg PHA 06/08/25 Complete (Ativan) 03:00 Quetiapine Fumarate PHA 06/08/25 Complete 25 Mg Tab (Seroquel 03:00 Current Medications Medications (Trade) Dose Ordered Sig/Dolores Route PRN Reason Start Time Stop Time Status Last Admin Dose Admin Lorazepam (AtiVAN) 1 mg ONCE ONCE IVP 06/08/25 03:00 06/08/25 03:01 DC 06/08/25 03:17 Lorazepam (AtiVAN) 1 mg ONCE ONCE PO 06/08/25 02:00 06/08/25 02:01 DC 06/08/25 02:10 Quetiapine Fumarate (SEROquel 25 mg TAB) 50 mg ONCE ONCE PO 06/08/25 03:00 06/08/25 03:01 DC 06/08/25 03:16 Sodium Chloride 1,000 ml @ 0 mls/hr Q0M ONCE IV 06/08/25 03:00 06/08/25 03:01 DC 06/08/25 03:16 Vital Signs Date Time Temp Pulse Resp B/P (MAP) Pulse Ox O2 Delivery O2 Flow Rate FiO2 11/29/25 06:53 98.8 120 17 125/86 96 Room Air* 0 21 06/08/25 01:45 98.8 111 24 146/109 96 Room Air* 0 21 06/08/25 00:33 98.2 118 20 148/95 99 Room Air HEART Score Response (Comments) Value History: Low suspicion (0) 0 EKG: Normal 0 Age: < 45yrs (0) 0 Risk Factors: 1-2 risk factors (+1) 1 Initial Troponin: Normal limit (0) 0 HEART Score Risk: Low Risk for MACE (1-3) Total 1 Medical Decision Making MDM Differential diagnosis: Polysubstance induced agitation, severe anxiety and toxicity symptoms. Primary cardiac including atrial fibrillation or sinus tachycardia are also included in the differential This is a 35-year-old male who presented to the emergency room with the his girlfriend with complaints of palpitations and feeling shaky. He also had some left facial numbness and he was hyperventilating when he came in. He was extremely rude using profanity and appeared extremely impatient. Patient indicated that he did cocaine and also at times uses Xanax bars. In review of more history patient was diagnosed with bipolar type 1 disorder and he was sober for over 6 months doing extremely well. However he relapsed and has not had any follow up with psychiatrist. During his sober time patient was taking Seroquel and PRN Xanax for agitation and anxiety. Patient stated that when his anxiety levels are extremely high, he reaches out to recreational drugs and alcohol which only makes things worse for him. Patient was extremely tearful during my evaluation. No headache blurred vision facial droop, diplopia motor weakness or seizure activity Temperature 98.3 pulse 118 respirations 20 blood pressure 148/95 with a pulse oximetry of 98% on room air Patient has chronic medical problems include history of atrial fibrillation, hypertension gallbladder issues, bipolar disorder and substance abuse. I suspect the paresthesias are secondary to severe anxiety and polysubstance ingestion. Patient has sympathetic surge due to stimulant use. Trial of Ativan plus Seroquel not only to help with the anxiety but also to promote sleep. Gentle hydration as patient appears dehydrated clinically with a dry mouth. I updated the patient and the girlfriend about the importance of appropriate medications and control of his emotional dysregulation for quality of life. Patient verbalized full understanding and sincerely wants to go back to abstinence and sobriety. 7:30 a.m. patient feels significantly relaxed slept for a few hours and is interested in checking in for rehab and I explained to the patient and the gi rlfriend that once he is discharged from here he can go as a walk-in to [facility] unit for further evaluation Rationale: Tests considered and ordered secondary to shared decision making include: Previous outside records reviewed: Old ER visits. Risk of complication and/or morbidity or mortality of patient management: None Medications-Per medication reconciliation Need for hospitalization: Patient does not meet criteria for hospitalization. Need for emergency major/minor surgery: No There are no social concerns with this patient. Prescription drug management Prescriptions will include symptomatic care Patient's prior external medical records from other ER visits were reviewed by me as indicated. Prior testing and results from previous visits were reviewed. Prior tests were taken into account with medical decision making and resource utilization, independent historian/historians were used to obtain complete medical history. I independently interpreted the test that were performed, results were reviewed by me and considered findings on radiology if ordered. Medical management and examination interpretation discussions were had by me with other qualified healthcare professionals as indicated for the patient's care. Problem List Problem List: (1) Palpitations (2) Anxiety attack (3) Cocaine abuse (4) Benzodiazepine abuse DX & DISP Disposition: Discharge Departure Impression: Primary Impression: Palpitations Additional Impressions: Anxiety attack, Cocaine abuse, Benzodiazepine abuse Condition: Stable Additional Instructions: Patient and the caregiver have been informed of all the diagnostic tests and the imaging conducted during the today's visit to the emergency room and has verbalized understanding of the results I have personally reviewed and interpreted all diagnostic exams performed here in the ER today as well as the vital signs documented by the nursing staff. The patient is now being discharged to home and should follow up with the primary care physician or the specialist as directed by the ER staff. Follow-up with primary care provider in 1 to 2 days. Take medications as directed here in the emergency room. Okay to continue home medications unless otherwise discussed during your visit in the emergency room today. Return to your nearest emergency room if symptoms worsen or if there is no improvement. Call 911 if you need immediate assistance. Take Tylenol or Motrin [id number] as needed and if no contraindications are present. Increase oral hydration. A wound culture or urine culture was ordered here in the emergency room department please follow-up with primary care provider and advise them to get repeat ports from our facility. If you had any Len wrap/splints that were applied here, please do not remove them until you see your primary care or specialty. Counseling on smoking cessation alcohol abstinence and abstinence of cocaine and benzodiazepines. I recommended a psychiatrist evaluation and lifestyle modification. Referrals: DEAN PEARCE MD (PCP) SEYMOUR HARRIS MD Jun 08, 2025 02:26
[2025-06-08] MEDS: 0.9%NACL 1000ML 1,000 ML IV ONE (03:16)
--- NOTE | 2025-06-08 07:33 | EKG ---
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
[2025-06-08 08:01] VITALS: BP 117/61; PULSE 121; RESP 20; TEMP 98.3; O2SAT 99
== END 2025-06-08 08:06 | disposition home or self-care (01) ==
LOC: EDH 00:32
DX: F41.0 Panic disorder [episodic paroxysmal anxiety] (principal); F14.10 Cocaine abuse, uncomplicated; R00.2 Palpitations; I10 Essential (primary) hypertension; I48.91 Unspecified atrial fibrillation; Z79.899 Other long term (current) drug therapy
CPT/HCPCS: 99285; 96374; 71045; 82550; 84484; 80048; 85025; 36415; 93005; J7030; J2060